=== PATIENT | male | born 1945 | race Caucasian/White ===

== ENCOUNTER 2020-03-24 12:38 | Outpatient (REF) | payer MEDICARE, SELFPAY ==
--- NOTE | 2020-03-24 12:54 | MR_ITS ---
EXAMINATION: MR KNEE WITHOUT CONTRAST, LEFT CLINICAL INFORMATION: Left knee pain. COMPARISON: Radiographs 05/04/2018 TECHNIQUE: MRI of the knee without contrast was performed using routine sequences on a high-field scanner. FINDINGS: MENISCI: Medial Meniscus: Diffuse inner margin tearing, particularly along the anterior horn and extruded meniscal body. Lateral Meniscus: Extensive complex tearing of the anterior horn which is essentially absent. This extends along the inner margin of the extruded meniscal body and inner margin/undersurface of the posterior horn. LIGAMENTS: Cruciate: Mucoid degeneration and probable high-grade chronic partial tearing of the ACL. Mild degenerative signal of the mid PCL. Collateral: Intact. EXTENSOR MECHANISM: Intact. ARTICULAR CARTILAGE/BONE: Patellofemoral Compartment: Cartilage thinning and surface irregularity with central osteophytes of the trochlea and central patella. Prominent marginal osteophytes. Medial Compartment: Extensive full-thickness cartilage loss with articular surface remodeling and prominent marginal osteophytes. Lateral Compartment: Full-thickness cartilage loss of the posterior weightbearing femoral condyle with mild concavity of the articular surface of the weightbearing femoral condyle likely representing a subchondral insufficiency fracture with underlying bone marrow edema. There is peripheral cartilage loss of the tibia, near full-thickness at the junction with the lateral tibial spine, and large marginal osteophytes. JOINT FLUID AND BURSAE: There is a large joint effusion and complex Chaudhry's cyst. Diffuse synovitis. MR/MR knee LT wo con IMPRESSION: Complex tearing of both menisci with severe medial and lateral compartment osteoarthritis, as detailed in the comments. Probable subchondral insufficiency fracture/SONK of the weightbearing lateral femoral condyle with articular surface concavity and underlying bone marrow edema. Degeneration and chronic partial tearing of the ACL. Moderate patellofemoral osteoarthritis. There is a large joint effusion and a complex Chaudhry's cyst.
== END 2020-03-24 12:39 | disposition home or self-care (01) ==
LOC: HO.MRI 12:38
PROVIDERS: PCP Internal Medicine; Visit Provider Internal Medicine
DX: M25.562 Pain in left knee (principal)
CPT/HCPCS: 73721

== ENCOUNTER 2020-04-08 13:23 | Outpatient (REF) | payer MEDICARE, SELFPAY ==
--- NOTE | 2020-04-08 13:43 | XR_ITS ---
EXAMINATION: BILATERAL KNEE X-RAY CLINICAL INFORMATION: Left knee pain COMPARISON: Previous x-rays April 2014 TECHNIQUE: Standing AP view of both knees and lateral and sunrise view of the left knee FINDINGS: Left knee: There is varus angulation. Bone alignment is normal otherwise normal. No fracture or dislocation is seen. There is arthritis at the medial femoral tibial and patellofemoral joints with joint space narrowing and osteophyte formation. There is a moderate joint effusion. The standing AP view of the right knee demonstrates varus angulation and medial femoral tibial joint space narrowing. XR/XR knee LT 2V IMPRESSION: Varus angulation and degenerative change.
--- NOTE | 2020-04-08 13:43 | XR_ITS ---
EXAMINATION: BILATERAL KNEE X-RAY CLINICAL INFORMATION: Left knee pain COMPARISON: Previous x-rays April 2014 TECHNIQUE: Standing AP view of both knees and lateral and sunrise view of the left knee FINDINGS: Left knee: There is varus angulation. Bone alignment is normal otherwise normal. No fracture or dislocation is seen. There is arthritis at the medial femoral tibial and patellofemoral joints with joint space narrowing and osteophyte formation. There is a moderate joint effusion. The standing AP view of the right knee demonstrates varus angulation and medial femoral tibial joint space narrowing. XR/XR knee standing BI IMPRESSION: Varus angulation and degenerative change.
== END 2020-04-08 13:24 | disposition home or self-care (01) ==
LOC: HO.HOSX 13:23
PROVIDERS: Visit Provider Orthopaedic Surgery
DX: M25.562 Pain in left knee (principal); M25.561 Pain in right knee; M17.0 Bilateral primary osteoarthritis of knee
CPT/HCPCS: 73560; 73565; 99202

== ENCOUNTER 2020-06-25 12:52 | Inpatient (IN) | payer MEDICARE, SELFPAY ==
--- NOTE | ~2020-06-25 | CT_ITS ---
EXAMINATION: CT ABDOMEN AND PELVIS WITHOUT CONTRAST CLINICAL INFORMATION: Gross hematochezia COMPARISON: None TECHNIQUE: Multidetector volumetric imaging was performed from the superior aspect of the liver through the pubic symphysis. Sagittal and coronal reformatted images were obtained on the technologist's workstation. This CT examination was performed using dose optimization techniques as appropriate, variously including the following: *Automated exposure control *Adjustment of mA and/or kV according to patient size (this includes techniques or standardized protocols for targeted exams where dose is matched to indication/reason for exam; i.e. extremities or head) *Use of iterative reconstruction technique DLP: 520 mGy-cm FINDINGS: LUNG BASES: Some [id number]-type changes are present in the lingula indicative of airway disease. No suspicious lung mass infiltrate or pleural effusions are seen. LIVER, GALLBLADDER, AND BILIARY TREE: The liver is normal in size, shape, and attenuation. No focal hepatic lesion or biliary ductal dilatation is present. The gallbladder contains layering small gallstones but is otherwise unremarkable with no evidence of wall thickening or obvious pericholecystic inflammatory changes. PANCREAS: Unremarkable. SPLEEN: Unremarkable. ADRENAL GLANDS: Unremarkable. KIDNEYS AND URETERS: The kidneys are normal in size, shape, and attenuation. No hydronephrosis, hydroureter, or calculi seen. No perinephric stranding. BLADDER: Unremarkable. GASTROINTESTINAL TRACT: A hiatal hernia is present. Extensive diverticular changes are present in the left colon most prominent in the rectosigmoid. Other scattered diverticula are present throughout the remainder of the bowel. There is no evidence of diverticulitis. No colonic mass lesions are seen. The small and large bowel are otherwise unremarkable. The appendix is not seen. ABDOMINAL WALL: No significant hernia is appreciated. A tiny left inguinal hernia is seen containing only fat. LYMPH NODES: No retroperitoneal lymphadenopathy. VASCULAR: Unremarkable. PELVIC VISCERA: A 2.6 x 2.3 x 2.8 cm cyst is noted just above the right seminal vesicle. This may have a septation in it. No free pelvic fluid is seen. The prostate and seminal vesicles appear normal. OSSEOUS STRUCTURES: Degenerative changes present in the spine most marked at L4-L5. No bony destructive lesion is seen. CT/CT abdomen pelvis wo con IMPRESSION: A cause for the patient's hematochezia has not been found. Incidental note made of: 1. Cholelithiasis without cholecystitis. 2. Hiatal hernia. 3. Extensive diverticular disease without diverticulitis. 4. Pelvic cyst just above the right seminal vesicle, water density. 5. Degenerative changes in the spine.
--- NOTE | 2020-06-25 14:05 | ED.GENADULT ---
HPI - General Adult General Stated complaint: rectal bleeding Time Seen by Provider: 06/25/20 14:00 Related Data Home Medications Medication Instructions Recorded Confirmed simvastatin PO 04/07/20 Allergies Allergy/AdvReac Type Severity Reaction Status Date / Time No Known Allergies Allergy Verified 04/08/20 13:28 [facility] Past Medical History Medical History (Updated 04/08/20 @ 14:38 by Leora Martinez MD) Osteoarthritis of both knees Surgical History (Updated 04/07/20 @ 16:10 by Ellen Rankin CMA) History of arthroplasty of left knee Previous back surgery Social History Social History (Updated 04/08/20 @ 13:29 by Ellen Rankin CMA) Current occupational status: retired Current occupation: Right Handed Course Course Course Narrative: 1405-This is a rapid medical exam. 74 yo male OA, HLD, HTN here with rectal bleeding with diarrhea since last night. No abdominal pain. Started 7pm yesterday till 5am. BRB with clots, episodes every hours throughout the night. No episode of bleeding since 5am. No fevers, chills. Takes naproxen daily for OA. Last colonoscopy 3 yrs ago. No dizziness, weakness, SOB. Will check labs including type and screen. Deferred additional HPI, ROS and PE to primary provider.
[2020-06-25 14:06] VITALS: BP 142/79; PULSE 100; RESP 18; TEMP 36.6; O2SAT 97; BMI 27.4
[2020-06-25 14:23] LABS: MANUAL DIFF FLAG NO
[2020-06-25 14:25] LABS: Basophils Percent Auto 0.4 % (0-2); Eosinophils Absolute Auto 0.5 X10*3/uL (0.0-0.4); Eosinophils Percent Auto 4.4 % (0-4); Hematocrit 35.3 % (42-52); Hemoglobin 11.8 g/dl (14.0-18.0); Imm Gran Abs Auto 0.03 X10*3/uL (0.00-0.03); Imm Gran Pct Auto 0.3 % (0.0-0.4); Lymphocytes Percent Auto 19.2 % (20-40); Mean Corpuscular HGB Conc 33.4 g/dl (31.0-36.0); Mean Corpuscular Hemoglobin 29.2 pg (27.0-33.0); Mean Corpuscular Volume 87.4 fL (80-98); Monocytes Absolute Auto 0.8 X10*3/uL (0.1-1.2); Monocytes Percent Auto 7.6 % (2-11); Neutrophils Percent Auto 68.1 % (45-73); Platelet Count 234 X10*3/uL (160-400); Red Blood Count 4.04 X10*6/uL (4.60-5.80); Red Cell Distribution Width 13.2 % (11.0-16.0); White Blood Count 10.3 X10*3/uL (4.8-10.8)
[2020-06-25 14:32] LABS: INTERNATIONAL NORM RATIO 1.1 (0.9-1.1); Prothrombin Time 13.5 SEC (10.8-13.0)
[2020-06-25 14:48] LABS: Lactic Acid 0.6 mmol/L (0.5-2.0)
[2020-06-25 14:54] LABS: Alanine Aminotransferase 24 U/L (0-40); Albumin Level 4.3 g/dL (3.5-5.0); Alkaline Phosphatase 59 U/L (39-117); Anion Gap 12 (12-20); Aspartate Amino Transferase 36 U/L (5-37); Bilirubin Direct 0.3 mg/dL (0.0-0.5); Bilirubin Total 0.7 mg/dL (0.0-1.0); Blood Urea Nitrogen 31 mg/dL (9-16); Calcium 8.4 mg/dL (8.4-10.2); Carbon Dioxide 25 mmol/L (22-29); Chloride 106 mmol/L (96-108); Creatinine Clr Calc Pharmacy 60.4; Estimated Glomerular Filt Rate > 60; Glucose Random 88 mg/dL (60-115); Potassium 4.2 mmol/L (3.3-5.1); Sodium 139 mmol/L (135-145); Total Protein 6.7 g/dL (6.5-8.0)
[2020-06-25 20:18] LABS: Glucose Urine UA NEG (NEG); Leukocyte Esterase Urine NEG (NEG); Nitrite Urine NEG (NEG); PH 5.5 (5.0-8.0); Specific Gravity - Urine >= 1.030 (1.005-1.025); Urine Blood NEG (NEG); Urine Ketones >=80 MG/DL (NEG); Urine Protein NEG (NEG-TRACE)
[2020-06-25 20:21] LABS: Appearance Urine CLEAR; Color Urine YELLOW
--- NOTE | 2020-06-25 20:57 | ED_ITS ---
HPI - GI Bleed General Chief complaint: GI Bleed Stated complaint: rectal bleeding Time Seen by Provider: 06/25/20 14:00 Source: patient Mode of arrival: ambulatory Limitations: no limitations History of Present Illness HPI Narrative: Patient on chronic NSAID use for arthritis no abdominal pain last colonoscopy 4 years ago negative comes here for bright red rectal bleed mixed with dark stool since last night without any significant abdominal pain patient had about 15-20 bowel movements last night felt little weak seen his primary care doctor was tachycardic in the office patient denies any peptic ulcer disease no hemorrhoids never had similar bleeding the past patient did not have any bowel movement since 05:00 today complaint: gross hematochezia Onset (ago): day(s) (1) Pain Consistency: now resolved Severity: moderate Relieving factors: none Exacerbating factors: none Related Data Home Medications Medication Instructions Recorded Confirmed simvastatin 20 mg PO DAILY 04/07/20 06/25/20 amlodipine 1 tab PO DAILY 06/25/20 06/25/20 naproxen 1 tab PO BID 06/25/20 06/25/20 Allergies Allergy/AdvReac Type Severity Reaction Status Date / Time No Known Allergies Allergy Verified 06/25/20 14:11 Review of Systems Review of Systems: Constitutional : No Weight loss, No Fever, No Chills ENT/Mouth : No sore throat, No Rhinorrhea Eyes: No Eye Pain, No Swelling Cardiovascular : No Chest Pain, no palpitations Respiratory : No Cough, No Sputum, no shortness of breath Gastrointestinal : no Nausea, No Vomiting, No Diarrhea, No abdominal Pain, + black stools Genitourinary : No Dysuria, No Urinary Frequency Musculoskeletal : No joint pain, No Myalgias, No Joint Swelling Skin : No Skin Lesions, No rash Neuro : No Weakness, No Numbness, No Dizziness, No Headache Psych : No Anxiety/Panic, No Depression Heme/Lymph: No Bruising, No Lymphadenopathy Endocrine : No Polyuria, No Polydipsia All other systems reviewed and are negative [facility] Past Medical History Medical History Osteoarthritis of both knees Surgical History History of arthroplasty of left knee Previous back surgery Social History Social History Alcohol intake: former Smoking Status: Never smoker Use of substances other than those prescribed or required for medical reasons: No Advance Directives: No Advance Directives Information Provided: No Current occupational status: retired Current occupation: Right Handed Physical Exam Vital Signs: Vital Signs: Last Vital Signs Temp 98.7 F 06/25/20 23:39 Pulse 86 06/25/20 23:39 Resp 16 06/25/20 23:39 BP 100/55 L 06/25/20 23:39 Pulse Ox 98 06/25/20 23:39 Body Mass Index 27.4 Const: General: healthy appearing, comfortable, no acute distress and well developed Orientation/consciousness: patient oriented x3 HENMT: Head: Yes normal to inspection Ears: hearing grossly normal bilaterally Face and sinus: Yes normal facial exam Mouth: Normal oral and palatal mucosa present Eyes: General: appearance normal, both eyes and all related structures Conjunctivae: conjunctivae normal Sclerae: sclerae normal Pupils: Equal, round and reactive pupils present Neck: Neck: Yes normal visual inspection Chest: Chest palpation & inspection: normal inspection of the chest Resp: Effort & Inspection: normal respiratory effort Auscultation: clear to auscultation bilaterally, no crackles and no rales Cardio: Jugular venous distension: no JVD Rate: regular rate Rhythm: regular rhythm Heart sounds: S1 normal heart sound present and S2 normal heart sound present Peripheral pulses: Peripheral pulses 2+ throughout GI: Inspection: Yes normal to inspection Palpation (GI): Soft to palpation and nontender Rectal Exam - Male: Yes visual inspection normal, Yes normal sphincter tone and Yes heme positive stool (Melena) : General: Yes no CVA tenderness Back/Spine/Pelvis: Back: no CVA tenderness Thoracic/Lumbar Spine: thoracic and lumbar spine normal to inspection Skin: General skin exam: no rashes or lesions noted Neuro: General: patient oriented x3 and no focal motor deficits Cranial nerves: Yes Equal, round and reactive pupils present Extrem: General: Yes normal to inspection, Yes no calf tenderness and No pedal edema MDM - GI Bleed MDM Narrative Medical decision making narrative: Patient with melena likely from chronic use of NSAID and gastritis although patient does not have any pain in abdomen CT scan of abdomen is negative patient H&H is stable at this time will admit him for serial check on h/h and plan for endoscopy in the morning Differential Diagnosis Differential diagnosis: Likely Upper gastrointestinal hemorrhage and hematochezia Lab Data Attestation: I reviewed the patient's lab results. Result diagrams: 06/25/20 14:17 06/25/20 14:17 Labs: Lab Results 06/25/20 06/25/20 06/25/20 Range/Units 14:17 14:17 14:17 WBC 10.3 (4.8-10.8) X10*3/uL RBC 4.04 L (4.60-5.80) X10*6/uL Hgb 11.8 L (14.0-18.0) g/dl Hct 35.3 L (42-52) % MCV 87.4 (80-98) fL MCH 29.2 (27.0-33.0) pg MCHC 33.4 (31.0-36.0) g/dl RDW 13.2 (11.0-16.0) % Plt Count 234 (160-400) X10*3/uL MPV 11.0 (9.4-12.4) fL Immature Gran % (Auto) 0.3 (0.0-0.4) % Neut % (Auto) 68.1 (45-73) % Lymph % (Auto) 19.2 L (20-40) % [place] % (Auto) 7.6 (2-11) % Eos % (Auto) 4.4 H (0-4) % Baso % (Auto) 0.4 (0-2) % Lymph # (Auto) 2.0 (1.2-4.9) X10*3/uL [place] # (Auto) 0.8 (0.1-1.2) X10*3/uL Eos # (Auto) 0.5 H (0.0-0.4) X10*3/uL Baso # (Auto) 0.0 (0.0-0.2) X10*3/uL Abs Immat Gran (auto) 0.03 (0.00-0.03) X10*3/uL Absolute Neuts (auto) 7.0 (2.0-8.3) X10*3/uL Absolute Nucleated RBC 0.000 (0.0-0.012) X10*3/uL Nucleated RBC % (auto) 0.0 (0.0-0.2) /100WBC PT 13.5 H (10.8-13.0) SEC INR 1.1 (0.9-1.1) Sodium 139 (135-145) mmol/L Potassium 4.2 (3.3-5.1) mmol/L Chloride 106 (96-108) mmol/L Carbon Dioxide 25 (22-29) mmol/L Anion Gap 12 (12-20) BUN 31 H (9-16) mg/dL Creatinine 1.08 (0.5-1.4) mg/dL Estim Creat Clear Calc 60.4 Estimated GFR > 60 Random Glucose 88 (60-115) mg/dL Lactic Acid (0.5-2.0) mmol/L Calcium 8.4 (8.4-10.2) mg/dL Total Bilirubin 0.7 (0.0-1.0) mg/dL Direct Bilirubin 0.3 (0.0-0.5) mg/dL AST 36 (5-37) U/L ALT 24 (0-40) U/L Alkaline Phosphatase 59 (39-117) U/L Total Protein 6.7 (6.5-8.0) g/dL Albumin 4.3 (3.5-5.0) g/dL Urine Color Urine Appearance Urine pH (5.0-8.0) Ur Specific [place] (1.005-1.025) Urine Protein (NEG-TRACE) MG/DL Urine Glucose (UA) (NEG) MG/DL Urine Ketones (NEG) MG/DL Urine Blood (NEG) Urine Nitrite (NEG) Ur Leukocyte Esterase (NEG) Stool Occult Blood (NEG) COVID-19 ([facility]) (Negative) COVID-19 Clin Com Blood Type Antibody Screen 06/25/20 06/25/20 06/25/20 Range/Units 14:17 14:17 20:10 WBC (4.8-10.8) X10*3/uL RBC (4.60-5.80) X10*6/uL Hgb (14.0-18.0) g/dl Hct (42-52) % MCV (80-98) fL MCH (27.0-33.0) pg MCHC (31.0-36.0) g/dl RDW (11.0-16.0) % Plt Count (160-400) X10*3/uL MPV (9.4-12.4) fL Immature Gran % (Auto) (0.0-0.4) % Neut % (Auto) (45-73) % Lymph % (Auto) (20-40) % [place] % (Auto) (2-11) % Eos % (Auto) (0-4) % Baso % (Auto) (0-2) % Lymph # (Auto) (1.2-4.9) X10*3/uL [place] # (Auto) (0.1-1.2) X10*3/uL Eos # (Auto) (0.0-0.4) X10*3/uL Baso # (Auto) (0.0-0.2) X10*3/uL Abs Immat Gran (auto) (0.00-0.03) X10*3/uL Absolute Neuts (auto) (2.0-8.3) X10*3/uL Absolute Nucleated RBC (0.0-0.012) X10*3/uL Nucleated RBC % (auto) (0.0-0.2) /100WBC PT (10.8-13.0) SEC INR (0.9-1.1) Sodium (135-145) mmol/L Potassium (3.3-5.1) mmol/L Chloride (96-108) mmol/L Carbon Dioxide (22-29) mmol/L Anion Gap (12-20) BUN (9-16) mg/dL Creatinine (0.5-1.4) mg/dL Estim Creat Clear Calc Estimated GFR Random Glucose (60-115) mg/dL Lactic Acid 0.6 (0.5-2.0) mmol/L Calcium (8.4-10.2) mg/dL Total Bilirubin (0.0-1.0) mg/dL Direct Bilirubin (0.0-0.5) mg/dL AST (5-37) U/L ALT (0-40) U/L Alkaline Phosphatase (39-117) U/L Total Protein (6.5-8.0) g/dL Albumin (3.5-5.0) g/dL Urine Color YELLOW Urine Appearance CLEAR Urine pH 5.5 (5.0-8.0) Ur Specific [place] >= 1.030 H (1.005-1.025) Urine Protein NEG (NEG-TRACE) MG/DL Urine Glucose (UA) NEG (NEG) MG/DL Urine Ketones >=80 (NEG) MG/DL Urine Blood NEG (NEG) Urine Nitrite NEG (NEG) Ur Leukocyte Esterase NEG (NEG) Stool Occult Blood (NEG) COVID-19 ([facility]) (Negative) COVID-19 Clin Com Blood Type O Positive Antibody Screen NEGATIVE 06/25/20 06/25/20 Range/Units 21:31 21:33 WBC (4.8-10.8) X10*3/uL RBC (4.60-5.80) X10*6/uL Hgb (14.0-18.0) g/dl Hct (42-52) % MCV (80-98) fL MCH (27.0-33.0) pg MCHC (31.0-36.0) g/dl RDW (11.0-16.0) % Plt Count (160-400) X10*3/uL MPV (9.4-12.4) fL Immature Gran % (Auto) (0.0-0.4) % Neut % (Auto) (45-73) % Lymph % (Auto) (20-40) % [place] % (Auto) (2-11) % Eos % (Auto) (0-4) % Baso % (Auto) (0-2) % Lymph # (Auto) (1.2-4.9) X10*3/uL [place] # (Auto) (0.1-1.2) X10*3/uL Eos # (Auto) (0.0-0.4) X10*3/uL Baso # (Auto) (0.0-0.2) X10*3/uL Abs Immat Gran (auto) (0.00-0.03) X10*3/uL Absolute Neuts (auto) (2.0-8.3) X10*3/uL Absolute Nucleated RBC (0.0-0.012) X10*3/uL Nucleated RBC % (auto) (0.0-0.2) /100WBC PT (10.8-13.0) SEC INR (0.9-1.1) Sodium (135-145) mmol/L Potassium (3.3-5.1) mmol/L Chloride (96-108) mmol/L Carbon Dioxide (22-29) mmol/L Anion Gap (12-20) BUN (9-16) mg/dL Creatinine (0.5-1.4) mg/dL Estim Creat Clear Calc Estimated GFR Random Glucose (60-115) mg/dL Lactic Acid (0.5-2.0) mmol/L Calcium (8.4-10.2) mg/dL Total Bilirubin (0.0-1.0) mg/dL Direct Bilirubin (0.0-0.5) mg/dL AST (5-37) U/L ALT (0-40) U/L Alkaline Phosphatase (39-117) U/L Total Protein (6.5-8.0) g/dL Albumin (3.5-5.0) g/dL Urine Color Urine Appearance Urine pH (5.0-8.0) Ur Specific [place] (1.005-1.025) Urine Protein (NEG-TRACE) MG/DL Urine Glucose (UA) (NEG) MG/DL Urine Ketones (NEG) MG/DL Urine Blood (NEG) Urine Nitrite (NEG) Ur Leukocyte Esterase (NEG) Stool Occult Blood POS (NEG) COVID-19 ([facility]) Negative (Negative) COVID-19 Clin Com See Note Blood Type Antibody Screen Imaging Data CT scan - abdomen: Radiologist's impression: XAMINATION: CT ABDOMEN AND PELVIS WITHOUT CONTRAST CLINICAL INFORMATION: Gross hematochezia COMPARISON: None TECHNIQUE: Multidetector volumetric imaging was performed from the superior aspect of the liver through the pubic symphysis. Sagittal and coronal reformatted images were obtained on the technologist's workstation. This CT examination was performed using dose optimization techniques as appropriate, variously including the following: *Automated exposure control *Adjustment of mA and/or kV according to patient size (this includes techniques or standardized protocols for targeted exams where dose is matched to indication/reason for exam; i.e. extremities or head) *Use of iterative reconstruction technique DLP: 520 mGy-cm FINDINGS: LUNG BASES: Some [id number]-type changes are present in the lingula indicative of airway disease. No suspicious lung mass infiltrate or pleural effusions are seen. LIVER, GALLBLADDER, AND BILIARY TREE: The liver is normal in size, shape, and attenuation. No focal hepatic lesion or biliary ductal dilatation is present. The gallbladder contains layering small gallstones but is otherwise unremarkable with no evidence of wall thickening or obvious pericholecystic inflammatory changes. PANCREAS: Unremarkable. SPLEEN: Unremarkable. ADRENAL GLANDS: Unremarkable. KIDNEYS AND URETERS: The kidneys are normal in size, shape, and attenuation. No hydronephrosis, hydroureter, or calculi seen. No perinephric stranding. BLADDER: Unremarkable. GASTROINTESTINAL TRACT: A hiatal hernia is present. Extensive diverticular changes are present in the left colon most prominent in the rectosigmoid. Other scattered diverticula are present throughout the remainder of the bowel. There is no evidence of diverticulitis. No colonic mass lesions are seen. The small and large bowel are otherwise unremarkable. The appendix is not seen. ABDOMINAL WALL: No significant hernia is appreciated. A tiny left inguinal hernia is seen containing only fat. LYMPH NODES: No retroperitoneal lymphadenopathy. VASCULAR: Unremarkable. PELVIC VISCERA: A 2.6 x 2.3 x 2.8 cm cyst is noted just above the right seminal vesicle. This may have a septation in it. No free pelvic fluid is seen. The prostate and seminal vesicles appear normal. OSSEOUS STRUCTURES: Degenerative changes present in the spine most marked at L4-L5. No bony destructive lesion is seen. CT/CT abdomen pelvis wo con IMPRESSION: A cause for the patient's hematochezia has not been found. Incidental note made of: 1. Cholelithiasis without cholecystitis. 2. Hiatal hernia. 3. Extensive diverticular disease without diverticulitis. 4. Pelvic cyst just above the right seminal vesicle, water density. 5. Degenerative changes in the spine.
[2020-06-25 21:23] VITALS: BP 154/84; PULSE 100; RESP 18; TEMP 36.6; O2SAT 98
[2020-06-25] MEDS: Pantoprazole Sodium 40 MG/10 ML VIAL 80 MG IVPUSH (21:27)
[2020-06-25 21:42] LABS: OBS Int Ctl Valid YES; OBS1 POS (NEG)
[2020-06-25 21:55] LABS: COVID-19 Test Negative (Negative); IDNOW Serial# 9DD0AD1C
--- NOTE | 2020-06-25 22:23 | PM.IMHP ---
History of Present Illness Date of Service: 06/25/20 Chief Complaint: BRBPR 74-year-old male with a past medical history of hypertension, hyperlipidemia, knee arthritis on naproxen presented to the hospital with a chief complaint of multiple episodes of bright red blood per rectum. Denies any fever chills cough. Denies any abdominal pain. Denies any recent travel sick contacts. Denies any prior episodes of GI bleed. Mention that he went to his PCP office and noted to be tachycardic and subsequently sent to the ER for further evaluation. Denies any lightheadedness dizziness. Review of all other systems is negative except mentioned above ER course: Per ER team patient's abdominal exam was benign, CT scan of the abdomen showed cholelithiasis without cholecystitis, hiatal hernia, extensive diverticular disease without diverticulitis pelvic cyst just above the seminal vesicle, water density, degenerative changes in the spine. Hemoglobin was 11.8. Given pantoprazole. Admitted to the hospital for further management [facility] Medical History Osteoarthritis of both knees Surgical History History of arthroplasty of left knee Previous back surgery Social History Alcohol intake: former Smoking Status: Never smoker Use of substances other than those prescribed or required for medical reasons: No Advance Directives: No Advance Directives Information Provided: No Current occupational status: retired Current occupation: Right Handed Meds Allergies Allergy/AdvReac Type Severity Reaction Status Date / Time No Known Allergies Allergy Verified 06/25/20 14:11 Home Medications Medication Instructions Recorded Confirmed Type simvastatin 20 mg PO DAILY 04/07/20 06/25/20 History amlodipine 1 tab PO DAILY 06/25/20 06/25/20 History naproxen 1 tab PO BID 06/25/20 06/25/20 History Physical Exam Vital Signs and Narrative: Vital Signs: Last Vital Signs Temp 97.8 F 06/25/20 21:23 Pulse 100 06/25/20 21:23 Resp 18 06/25/20 21:23 BP 154/84 H 06/25/20 21:23 Pulse Ox 98 06/25/20 21:23 Body Mass Index 27.4 Gen: Appears be in no acute distress HEENT: NCAT, Moist mucosa. Pulmonary: Vesicular breath sounds, fair air entry CVS: Normal S1-S2 Abdomen: BS+, Soft, Nontender Extremities: Warm well perfused Neuro: Alert and awake. Results Labs CBC and Chem 7: 06/25/20 14:17 06/25/20 14:17 Labs: Laboratory Results - last 24 hr 06/25/20 06/25/20 06/25/20 14:17 14:17 14:17 MCV 87.4 MCH 29.2 MCHC 33.4 RDW 13.2 Plt Count 234 MPV 11.0 Immature Gran % (Auto) 0.3 Neut % (Auto) 68.1 Lymph % (Auto) 19.2 L [place] % (Auto) 7.6 Eos % (Auto) 4.4 H Baso % (Auto) 0.4 Lymph # (Auto) 2.0 [place] # (Auto) 0.8 Eos # (Auto) 0.5 H Baso # (Auto) 0.0 Abs Immat Gran (auto) 0.03 Absolute Neuts (auto) 7.0 Absolute Nucleated RBC 0.000 Nucleated RBC % (auto) 0.0 PT 13.5 H INR 1.1 Anion Gap 12 Estim Creat Clear Calc 60.4 Estimated GFR > 60 Random Glucose 88 Lactic Acid Calcium 8.4 Total Bilirubin 0.7 Direct Bilirubin 0.3 AST 36 ALT 24 Alkaline Phosphatase 59 Total Protein 6.7 Albumin 4.3 Urine Color Urine Appearance Urine pH Ur Specific [place] Urine Protein Urine Glucose (UA) Urine Ketones Urine Blood Urine Nitrite Ur Leukocyte Esterase Stool Occult Blood COVID-19 ([facility]) COVID-19 Clin Com Blood Type Antibody Screen 06/25/20 06/25/20 06/25/20 14:17 14:17 20:10 MCV MCH MCHC RDW Plt Count MPV Immature Gran % (Auto) Neut % (Auto) Lymph % (Auto) [place] % (Auto) Eos % (Auto) Baso % (Auto) Lymph # (Auto) [place] # (Auto) Eos # (Auto) Baso # (Auto) Abs Immat Gran (auto) Absolute Neuts (auto) Absolute Nucleated RBC Nucleated RBC % (auto) PT INR Anion Gap Estim Creat Clear Calc Estimated GFR Random Glucose Lactic Acid 0.6 Calcium Total Bilirubin Direct Bilirubin AST ALT Alkaline Phosphatase Total Protein Albumin Urine Color YELLOW Urine Appearance CLEAR Urine pH 5.5 Ur Specific [place] >= 1.030 H Urine Protein NEG Urine Glucose (UA) NEG Urine Ketones >=80 Urine Blood NEG Urine Nitrite NEG Ur Leukocyte Esterase NEG Stool Occult Blood COVID-19 ([facility]) COVID-19 Clin Com Blood Type O Positive Antibody Screen NEGATIVE 06/25/20 06/25/20 21:31 21:33 MCV MCH MCHC RDW Plt Count MPV Immature Gran % (Auto) Neut % (Auto) Lymph % (Auto) [place] % (Auto) Eos % (Auto) Baso % (Auto) Lymph # (Auto) [place] # (Auto) Eos # (Auto) Baso # (Auto) Abs Immat Gran (auto) Absolute Neuts (auto) Absolute Nucleated RBC Nucleated RBC % (auto) PT INR Anion Gap Estim Creat Clear Calc Estimated GFR Random Glucose Lactic Acid Calcium Total Bilirubin Direct Bilirubin AST ALT Alkaline Phosphatase Total Protein Albumin Urine Color Urine Appearance Urine pH Ur Specific [place] Urine Protein Urine Glucose (UA) Urine Ketones Urine Blood Urine Nitrite Ur Leukocyte Esterase Stool Occult Blood POS COVID-19 ([facility]) Negative COVID-19 Clin Com See Note Blood Type Antibody Screen Assessment and Plan (1) GI bleed: Status: Acute 74-year-old male with a past medical history of hypertension, hyperlipidemia, knee arthritis on naproxen presented to the hospital with a chief complaint of bright red blood per rectum-multiple episodes. Currently hemoglobin is 11.8. Vital stable. Admitted to the hospital for further management. GI bleed: Hemoglobin at 11.8. Monitor serial H&H. Vitals currently stable. Abdominal exam benign. CT scan showed extensive diverticulosis. IV ppi bid NPO IV fluids GI consult transfuse prn if Hgb<7.0 Hypertension/hyperlipidemia: Will hold antihypertensives. Will hold home medications for now given NPO status. Cholelithiasis: Outpatient general surgery follow-up Pelvic cyst: Outpatient Urology follow-up recommended. DVT prophylaxis: SCD boots Full code
--- NOTE | 2020-06-25 23:31 | PC.NURSE ---
delay for d5 1/2ns due to stocking issues. 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
[2020-06-25 23:39] VITALS: BP 100/55; PULSE 86; RESP 16; TEMP 37.1; O2SAT 98
[2020-06-25 23:45] LABS: Iron 83 mcg/dL (45-160); Percent Iron Saturation 29 % (15-50); Total Iron Binding Capacity 290 mcg/dL (228-428); Unsaturated Iron Binding 207 ug/dL
[2020-06-25] MEDS: Dextrose 5 % and 0.45 % NaCl 1,000 ML 100 ML IVCONT (23:57)
[2020-06-26 00:05] LABS: Ferritin 46 ng/mL (20-250)
[2020-06-26] MEDS: 0.9 % Sodium Chloride 1,000 ML 100 ML IVCONT (01:02)
[2020-06-26 01:17] LABS: Basophils Absolute Auto 0.1 X10*3/uL (0.0-0.2); Basophils Percent Auto 0.6 % (0-2); Eosinophils Absolute Auto 0.6 X10*3/uL (0.0-0.4); Eosinophils Percent Auto 7.2 % (0-4); Hematocrit 30.8 % (42-52); Hemoglobin 10.4 g/dl (14.0-18.0); Imm Gran Abs Auto 0.02 X10*3/uL (0.00-0.03); Imm Gran Pct Auto 0.2 % (0.0-0.4); Lymphocytes Percent Auto 22.4 % (20-40); MANUAL DIFF FLAG NO; Mean Corpuscular HGB Conc 33.8 g/dl (31.0-36.0); Mean Corpuscular Hemoglobin 29.7 pg (27.0-33.0); Monocytes Absolute Auto 0.7 X10*3/uL (0.1-1.2); Monocytes Percent Auto 8.3 % (2-11); Neutrophils Absolute Auto 5.4 X10*3/uL (2.0-8.3); Neutrophils Percent Auto 61.3 % (45-73); Platelet Count 176 X10*3/uL (160-400); Red Cell Distribution Width 13.3 % (11.0-16.0); White Blood Count 8.7 X10*3/uL (4.8-10.8)
[2020-06-26] MEDS: Pantoprazole Sodium 40 MG/10 ML VIAL IVPUSH (05:49)
[2020-06-26 06:01] LABS: MANUAL DIFF FLAG NO
[2020-06-26 06:02] LABS: Basophils Absolute Auto 0.1 X10*3/uL (0.0-0.2); Basophils Percent Auto 0.6 % (0-2); Eosinophils Absolute Auto 0.8 X10*3/uL (0.0-0.4); Eosinophils Percent Auto 9.7 % (0-4); Hematocrit 30.5 % (42-52); Hemoglobin 10.4 g/dl (14.0-18.0); Imm Gran Abs Auto 0.01 X10*3/uL (0.00-0.03); Imm Gran Pct Auto 0.1 % (0.0-0.4); Lymphocytes Absolute Auto 2.5 X10*3/uL (1.2-4.9); Lymphocytes Percent Auto 30.3 % (20-40); Mean Corpuscular HGB Conc 34.1 g/dl (31.0-36.0); Mean Corpuscular Volume 87.9 fL (80-98); Mean Platelet Volume 10.8 fL (9.4-12.4); Monocytes Absolute Auto 0.8 X10*3/uL (0.1-1.2); Monocytes Percent Auto 9.4 % (2-11); Neutrophils Absolute Auto 4.2 X10*3/uL (2.0-8.3); Neutrophils Percent Auto 49.9 % (45-73); Platelet Count 176 X10*3/uL (160-400); Red Blood Count 3.47 X10*6/uL (4.60-5.80); White Blood Count 8.4 X10*3/uL (4.8-10.8)
[2020-06-26 06:26] LABS: Anion Gap 13 (12-20); Blood Urea Nitrogen 23 mg/dL (9-16); Calcium 8.2 mg/dL (8.4-10.2); Carbon Dioxide 24 mmol/L (22-29); Chloride 110 mmol/L (96-108); Creatinine Clr Calc Pharmacy 76.8; Estimated Glomerular Filt Rate > 60; Glucose Random 79 mg/dL (60-115); Potassium 4.1 mmol/L (3.3-5.1); Sodium 143 mmol/L (135-145)
[2020-06-26 07:46] VITALS: BP 116/62; PULSE 91; RESP 16; TEMP 36.7; O2SAT 98
--- NOTE | 2020-06-26 07:48 | PC.NURSE ---
pt is a/o x 3 no sob/mary noted skin pink warm dry speaks in full sentences. aware of plan of care for gi consult.. pt is npo at this time.
[2020-06-26] MEDS: 0.9 % Sodium Chloride Flush 3 ML SYRINGE IVFLUSH (08:05)
[2020-06-26 10:02] VITALS: BP 119/71; PULSE 90; RESP 20; O2SAT 98
[2020-06-26 11:51] VITALS: BP 159/85; PULSE 100; RESP 16; TEMP 36.9; O2SAT 97
--- NOTE | 2020-06-26 14:13 | P.DS_ITS ---
DS: Providers Provider Date of Service: 06/26/20 Date of admission: 06/25/20 22:19 Primary care physician: Henry Young MD Consults: 06/25/20 22:21 Consult to Gastroenterology Routine Consulting Provider: Edvin Bruce Reason for consultation: GI bleed Has provider been notified: No DS: Diagnosis Discharge Diagnosis (1) GI bleed: Status: Acute DS: Medications Discharge Medications Home Medications: Home Medications Medication Instructions Recorded Confirmed amlodipine 1 tab PO DAILY 06/25/20 06/25/20 simvastatin 1 tab PO BEDTIME 06/26/20 06/26/20 Previous Rx's Medication Instructions Recorded omeprazole 20 mg PO DAILY #30 cap 06/26/20 DS: Summary Hospital Course Hospital Course: History of presenting illness Chief Complaint: BRBPR 74-year-old male with a past medical history of hypertension, hyperlipidemia, knee arthritis on naproxen presented to the hospital with a chief complaint of multiple episodes of bright red blood per rectum. Denies any fever chills cough. Denies any abdominal pain. Denies any recent travel sick contacts. Denies any prior episodes of GI bleed. Mention that he went to his PCP office and noted to be tachycardic and subsequently sent to the ER for further evaluation. Denies any lightheadedness dizziness. Review of all other systems is negative except mentioned above ER course: Per ER team patient's abdominal exam was benign, CT scan of the abdomen showed cholelithiasis without cholecystitis, hiatal hernia, extensive diverticular disease without diverticulitis pelvic cyst just above the seminal vesicle, water density, degenerative changes in the spine. Hemoglobin was 11.8. Given pantoprazole. Admitted to the hospital for further management Hospital course 74-year-old gentleman with past medical history of hypertension, hyperlipidemia knee arthritis on Naprosyn presented to [facility] with 6-7 episodes of bright red blood per rectum over the course of less than 24 hours, subsequently patient went to see his primary care physician and was noted to have tachycardia and was referred to the emergency, a CT abdomen showed cholelithiasis, and extensive diverticular disease, patient hematocrit was 35.3 patient was treated with IV fluids, IV proton was made made NPO and was subsequently admitted, since his stay in the hospital patient did not have any recurrent episode of bright red blood per rectum he denies any abdominal pain his hematocrit dropped down to 30 patient denies any lightheadedness dizziness chest pain palpitation wishes to be discharged home patient had a colonoscopy done in 2016 that showed 2 polyps and diverticular disease likely patient had self-limiting diverticular bleed, case discussed with Dr. More since patient is hemodynamically stable he will be discharged home and has been recommended to call Dr. More office to make an appointment next week and to a colonoscopy scheduled in next 1-2 weeks patient has been instructed to return to check with any recurrent episodes of bright red blood per rectum,lightheadedness or dizziness. Patient has been recommended to avoid aspirin and NSAIDs. Discharge diagnosis Lower GI bleed likely diverticular bleed Hypertension Hyperlipidemia Osteoarthritis Time Spent with Patient Time attestation: Total time spent providing and/or coordinating discharge services: Discharge coordination time: Greater than 30 minutes Physical Exam Vital Signs: Vital Signs: Last Vital Signs Temp 98.4 F 06/26/20 11:51 Pulse 100 06/26/20 11:51 Resp 16 06/26/20 11:51 BP 159/85 H 06/26/20 11:51 Pulse Ox 97 06/26/20 11:51 Body Mass Index 27.4 Gen: no acute distress Neck is supple no JVD Pulmonary: No respiratory distress clear to auscultation CVS: Normal S1-S2 Abdomen: BS+, Soft, Nontender Extremities: No edema Neuro: Alert and awake, steady gait. DS: Data Data Completed and Pending Labs on day of discharge: Laboratory Tests 06/25/20 06/25/20 06/25/20 14:17 14:17 14:17 WBC 10.3 RBC 4.04 L Hgb 11.8 L Hct 35.3 L MCV 87.4 MCH 29.2 MCHC 33.4 RDW 13.2 Plt Count 234 MPV 11.0 Immature Gran % (Auto) 0.3 Neut % (Auto) 68.1 Lymph % (Auto) 19.2 L [place] % (Auto) 7.6 Eos % (Auto) 4.4 H Baso % (Auto) 0.4 Lymph # (Auto) 2.0 [place] # (Auto) 0.8 Eos # (Auto) 0.5 H Baso # (Auto) 0.0 Abs Immat Gran (auto) 0.03 Absolute Neuts (auto) 7.0 Absolute Nucleated RBC 0.000 Nucleated RBC % (auto) 0.0 PT 13.5 H INR 1.1 Sodium 139 Potassium 4.2 Chloride 106 Carbon Dioxide 25 Anion Gap 12 BUN 31 H Creatinine 1.08 Estim Creat Clear Calc 60.4 Estimated GFR > 60 Random Glucose 88 Lactic Acid Calcium 8.4 Iron 83 TIBC 290 % Saturation 29 Unsat Iron Binding 207 Ferritin 46 Total Bilirubin 0.7 Direct Bilirubin 0.3 AST 36 ALT 24 Alkaline Phosphatase 59 Total Protein 6.7 Albumin 4.3 Urine Color Urine Appearance Urine pH Ur Specific [place] Urine Protein Urine Glucose (UA) Urine Ketones Urine Blood Urine Nitrite Ur Leukocyte Esterase Stool Occult Blood COVID-19 ([facility]) COVID-19 Clin Com Blood Type Antibody Screen 06/25/20 06/25/20 06/25/20 14:17 14:17 20:10 WBC RBC Hgb Hct MCV MCH MCHC RDW Plt Count MPV Immature Gran % (Auto) Neut % (Auto) Lymph % (Auto) [place] % (Auto) Eos % (Auto) Baso % (Auto) Lymph # (Auto) [place] # (Auto) Eos # (Auto) Baso # (Auto) Abs Immat Gran (auto) Absolute Neuts (auto) Absolute Nucleated RBC Nucleated RBC % (auto) PT INR Sodium Potassium Chloride Carbon Dioxide Anion Gap BUN Creatinine Estim Creat Clear Calc Estimated GFR Random Glucose Lactic Acid 0.6 Calcium Iron TIBC % Saturation Unsat Iron Binding Ferritin Total Bilirubin Direct Bilirubin AST ALT Alkaline Phosphatase Total Protein Albumin Urine Color YELLOW Urine Appearance CLEAR Urine pH 5.5 Ur Specific [place] >= 1.030 H Urine Protein NEG Urine Glucose (UA) NEG Urine Ketones >=80 Urine Blood NEG Urine Nitrite NEG Ur Leukocyte Esterase NEG Stool Occult Blood COVID-19 ([facility]) COVID-19 Clin Com Blood Type O Positive Antibody Screen NEGATIVE 06/25/20 06/25/20 06/26/20 21:31 21:33 01:06 WBC 8.7 RBC 3.50 L Hgb 10.4 L Hct 30.8 L MCV 88.0 MCH 29.7 MCHC 33.8 RDW 13.3 Plt Count 176 MPV 11.0 Immature Gran % (Auto) 0.2 Neut % (Auto) 61.3 Lymph % (Auto) 22.4 [place] % (Auto) 8.3 Eos % (Auto) 7.2 H Baso % (Auto) 0.6 Lymph # (Auto) 2.0 [place] # (Auto) 0.7 Eos # (Auto) 0.6 H Baso # (Auto) 0.1 Abs Immat Gran (auto) 0.02 Absolute Neuts (auto) 5.4 Absolute Nucleated RBC 0.000 Nucleated RBC % (auto) 0.0 PT INR Sodium Potassium Chloride Carbon Dioxide Anion Gap BUN Creatinine Estim Creat Clear Calc Estimated GFR Random Glucose Lactic Acid Calcium Iron TIBC % Saturation Unsat Iron Binding Ferritin Total Bilirubin Direct Bilirubin AST ALT Alkaline Phosphatase Total Protein Albumin Urine Color Urine Appearance Urine pH Ur Specific [place] Urine Protein Urine Glucose (UA) Urine Ketones Urine Blood Urine Nitrite Ur Leukocyte Esterase Stool Occult Blood POS COVID-19 ([facility]) Negative COVID-19 Clin Com See Note Blood Type Antibody Screen 06/26/20 06/26/20 05:53 05:53 WBC 8.4 RBC 3.47 L Hgb 10.4 L Hct 30.5 L MCV 87.9 MCH 30.0 MCHC 34.1 RDW 13.0 Plt Count 176 MPV 10.8 Immature Gran % (Auto) 0.1 Neut % (Auto) 49.9 Lymph % (Auto) 30.3 [place] % (Auto) 9.4 Eos % (Auto) 9.7 H Baso % (Auto) 0.6 Lymph # (Auto) 2.5 [place] # (Auto) 0.8 Eos # (Auto) 0.8 H Baso # (Auto) 0.1 Abs Immat Gran (auto) 0.01 Absolute Neuts (auto) 4.2 Absolute Nucleated RBC 0.000 Nucleated RBC % (auto) 0.0 PT INR Sodium 143 Potassium 4.1 Chloride 110 H Carbon Dioxide 24 Anion Gap 13 BUN 23 H Creatinine 0.85 Estim Creat Clear Calc 76.8 Estimated GFR > 60 Random Glucose 79 Lactic Acid Calcium 8.2 L Iron TIBC % Saturation Unsat Iron Binding Ferritin Total Bilirubin Direct Bilirubin AST ALT Alkaline Phosphatase Total Protein Albumin Urine Color Urine Appearance Urine pH Ur Specific [place] Urine Protein Urine Glucose (UA) Urine Ketones Urine Blood Urine Nitrite Ur Leukocyte Esterase Stool Occult Blood COVID-19 ([facility]) COVID-19 Clin Com Blood Type Antibody Screen Discharge Plan Discharge Patient Disposition: Home, Self-Care Referrals: Henry Young MD [Primary Care Provider] - Discharge Medications: New omeprazole 20 mg capsule,delayed release(DR/EC) 20 mg PO DAILY Qty: 30 RF: 0 Continued amlodipine 10 mg tablet 1 tab PO DAILY RF: 0 simvastatin 20 mg tablet 1 tab PO BEDTIME RF: 0 Discontinued naproxen 500 mg tablet 1 tab PO BID RF: 0 Discharge Orders: Discharge Order (Routine); Ordered 06/26/20 Ordered By: Tyler Montanez Diet: regular diet Activity on Discharge: As tolerated Stand Alone Forms: Patient Portal Discharge page Visit Report Forms: Patient Portal Discharge page Care Plan Goals: Call Dr. More office today to make an appointment for Monday to have colonoscopy scheduled in next 1-2 weeks Health Concerns: Lower GI bleed resolved Plan of Treatment: Follow-up with primary care physician and Dr. More next week Patient Instructions: Gastrointestinal Bleeding (DC) Discharge Date/Time: 06/26/20 13:20
--- NOTE | 2020-06-26 14:51 | MHC.CM.PN ---
Addendum entered by Amanda Rashid RN 06/26/20 14:53: PT WAS DISCHARGED HOME SELF-CARE Original Note: CM ATTEMPTED TO SEE PT HOWEVER PT HAD BEEN DISCHARGED, CM WAS UNABLE TO COMPLETE CM ASSESSMENT DUE TO PT DISCHARGE.
== END 2020-06-26 13:20 | disposition home or self-care (01) | DRG 379 ==
LOC: HO.ED 20:59 → HO.EDOVER 23:03
PROVIDERS: Nurse Practitioner Family; Admitting Provider Hospitalist; Emergency Provider Internal Medicine; PCP Internal Medicine; Visit Provider Hospitalist
DX: K57.31 Diverticulosis of large intestine without perforation or abscess with bleeding (principal); K80.20 Calculus of gallbladder without cholecystitis without obstruction; I10 Essential (primary) hypertension; E78.5 Hyperlipidemia, unspecified; Z96.652 Presence of left artificial knee joint; Z79.1 Long term (current) use of non-steroidal anti-inflammatories (NSAID); Z79.899 Other long term (current) drug therapy
CPT/HCPCS: 36415; 74176; 80048; 80076; 81003; 82272; 82728; 83540; 83605; 85025; 85610; 86850; 86900; 86901; 87635; 96374; 99284; 99285

== ENCOUNTER → 2020-07-14 09:42 | Outpatient (BNVA) | payer MEDICARE, SELFPAY | PROVIDERS: Visit Provider Orthopaedic Surgery | DX: M17.12 Unilateral primary osteoarthritis, left knee (principal) | CPT/HCPCS: 20610; 99212; J1040 ==

== ENCOUNTER 2020-07-15 12:20 | Day surgery (SDC) | payer MEDICARE, SELFPAY ==
[2020-07-10 13:00] VITALS: BMI 25.8
--- NOTE | 2020-07-13 14:08 | P.CONAN_ITS ---
Documented by User: Dominique Gee 07/13/20 14:10 HPI - Anesthesia Eval Consult details Narrative: 74yo [place] [facility] [place] for GI bleed. PMFSH Active Problems Active Problems: All Active Problems (Updated 07/10/20 @ 12:58 by Lucretia Cam) Primary osteoarthritis of left knee (Acute) GI bleed (Acute) Past Medical History Medical History Diverticulosis Elevated cholesterol GERD (gastroesophageal reflux disease) HTN (hypertension) Hx of basal cell carcinoma Osteoarthritis of both knees Surgical History Surgical History Hx of arthroscopy of left knee Hx of colonoscopy Hx of spinal surgery Social History Social History Alcohol intake: former Smoking Status: Never smoker Use of substances other than those prescribed or required for medical reasons: No Advance Directives: No Advance Directives Information Provided: No Advance Directives on File: No Current occupational status: retired Current occupation: [employer] Meds Allergies Allergy/AdvReac Type Severity Reaction Status Date / Time No Known Allergies Allergy Verified 07/14/20 09:49 Home Medications Medication Instructions Recorded Confirmed Last Taken Type amlodipine 1 tab PO DAILY 06/25/20 07/10/20 07/15/20 History simvastatin 1 tab PO BEDTIME 06/26/20 07/10/20 2 Days Ago History ~06/24/20 multivitamin 1 tab PO DAILY 07/10/20 07/10/20 Unknown History Exam Exam Date and Time: July 13, 2020 1408 Height,Weight and Vital Signs: Height 5 ft 6 in Weight 72.575 kg Pertinent Lab Results Pertinent Lab Results: Laboratory Tests 06/26/20 06/26/20 05:53 05:53 WBC 8.4 Hgb 10.4 L Hct 30.5 L Plt Count 176 Sodium 143 Potassium 4.1 Chloride 110 H Carbon Dioxide 24 BUN 23 H Creatinine 0.85 Assessment and Plan Assessment Anesthesia Assessment: Chart Reviewed Documented by User: Moriah Iglesias 07/15/20 13:12 PMFSH Past Medical History Medical History Diverticulosis Elevated cholesterol GERD (gastroesophageal reflux disease) HTN (hypertension) Hx of basal cell carcinoma Osteoarthritis of both knees Surgical History Surgical History Hx of arthroscopy of left knee Hx of colonoscopy Hx of spinal surgery Social History Social History Alcohol intake: former Smoking Status: Never smoker Use of substances other than those prescribed or required for medical reasons: No Advance Directives: No Advance Directives Information Provided: No Advance Directives on File: No Current occupational status: retired Current occupation: [employer] Meds Allergies Allergy/AdvReac Type Severity Reaction Status Date / Time No Known Allergies Allergy Verified 07/14/20 09:49 Home Medications Medication Instructions Recorded Confirmed Last Taken Type amlodipine 1 tab PO DAILY 06/25/20 07/10/20 07/15/20 History simvastatin 1 tab PO BEDTIME 06/26/20 07/10/20 2 Days Ago History ~06/24/20 multivitamin 1 tab PO DAILY 07/10/20 07/10/20 Unknown History Exam Airway Mallampati Class: II TM Dist: >3cm Neck ROM: Full
[2020-07-15 13:00] VITALS: BP 153/72; PULSE 89; RESP 16; TEMP 36.9; O2SAT 98
[2020-07-15] MEDS: Lactated Ringers 1,000 ML 100 ML IVCONT (13:15)
--- NOTE | 2020-07-15 13:30 | MHC.SHP ---
Pre-Procedural Eval Section A The patient is an INPATIENT: No Changes since office visit: No Cold of Flu in the past 2 weeks, No New Medical Problems, No Changes in Medication and No Patient answered all questions The History & Physical has been completed within 30 days and I have reviewed it.: Yes Section B Chief Complaint: bleeding Allergies: Allergies Allergy/AdvReac Type Severity Reaction Status Date / Time No Known Allergies Allergy Verified 07/14/20 09:49 Plan I have reviewed the history and physical and performed a pertinent physical examination on my patient. No changes have occurred unless specified.
--- NOTE | 2020-07-15 14:09 | PM.OP ---
Brief Operative Note Date of Service: 07/15/20 Pre-op diagnosis: rectal bleeding Post-op diagnosis: same (diverticulosis, colon polyp) Procedure: colonoscopy Surgeon: Alf More Anesthesia: MAC Estimated blood loss (mL): 2 Pathology: other (polyp x1) Condition: stable Disposition: PACU
[2020-07-15 14:14] VITALS: BP 102/48; PULSE 89; RESP 16; TEMP 37.1; O2SAT 97
--- NOTE | 2020-07-15 14:24 | OP_ITS ---
SURGEON: Alf More MD INDICATIONS: Rectal bleeding. PREOPERATIVE DIAGNOSIS: POSTOPERATIVE DIAGNOSIS: PROCEDURE PERFORMED: Colonoscopy to the terminal ileum with biopsy. ESTIMATED BLOOD LOSS: COMPLICATIONS: ANESTHESIA: ASSISTANTS: SPECIMENS: MEDICATIONS: Monitored anesthesia care. DESCRIPTION OF PROCEDURE: History and physical performed. The risks and benefits of the procedure were explained to the patient. Informed consent was obtained. The patient was placed in left lateral decubitus position. A digital rectal exam was performed and was found to be normal. The Olympus pediatric video colonoscope was introduced into the rectum and advanced to the cecum without difficulty. The cecum was identified by transillumination, palpation, and identification of ileocecal valve. Examination was performed and the scope was removed. He tolerated the procedure well and was taken to recovery area in stable condition. FINDINGS: The terminal ileum was normal. This was explored for approximately 30 cm. The visualized colonic mucosa was within normal limits without evidence of masses or ulcers. A single polyp measuring less than 5 mm was identified at 35 cm from the anal verge. This was removed with biopsy forceps. No other polyps were identified. There was moderate sigmoid diverticulosis. No rectal bleeding was identified. Retroflexed examination showed small internal hemorrhoids. The quality of prep was good with some liquid stool mainly in the right colon. This was washed and suctioned. IMPRESSION: 1. Colon polyp. 2. Diverticulosis. RECOMMENDATION: Follow up the biopsy results. MD KAYLA Hercules/[place]TON / [id number]
[2020-07-15 14:26] VITALS: BP 92/43; PULSE 97; RESP 16; O2SAT 99
[2020-07-15 14:35] VITALS: BP 102/50; PULSE 97; RESP 18; O2SAT 97
== END 2020-07-15 14:57 | disposition home or self-care (01) ==
PROVIDERS: PCP Internal Medicine; Visit Provider Internal Medicine Gastroenterology
PROC: 0DJD8ZZ Inspection of Lower Intestinal Tract, Via Natural or Artificial Opening Endoscopic (ICD-10-PCS; CPT 45378; principal; 2020-07-15 13:40)
DX: K62.5 Hemorrhage of anus and rectum (principal); Z86.010 Personal history of colon polyps; K51.40 Inflammatory polyps of colon without complications; K57.30 Diverticulosis of large intestine without perforation or abscess without bleeding; K64.8 Other hemorrhoids; K44.9 Diaphragmatic hernia without obstruction or gangrene; I10 Essential (primary) hypertension; Z79.899 Other long term (current) drug therapy; Z85.828 Personal history of other malignant neoplasm of skin
CPT/HCPCS: 45380; 88305; J2370

== ENCOUNTER → 2020-10-09 09:54 | Outpatient (BNVA) | payer MEDICARE, SELFPAY | PROVIDERS: PCP Internal Medicine; Visit Provider Orthopaedic Surgery | DX: M17.12 Unilateral primary osteoarthritis, left knee (principal) | CPT/HCPCS: 99212 ==

== ENCOUNTER → 2020-11-03 09:52 | Outpatient (BNVA) | payer MEDICARE, SELFPAY | PROVIDERS: PCP Internal Medicine; Visit Provider Orthopaedic Surgery | DX: Z01.812 Encounter for preprocedural laboratory examination (principal); Z01.810 Encounter for preprocedural cardiovascular examination; M17.12 Unilateral primary osteoarthritis, left knee ==

== ENCOUNTER → 2020-12-02 13:27 | Outpatient (BNVA) | payer MEDICARE, SELFPAY | PROVIDERS: PCP Internal Medicine; Visit Provider Physician Assistant | DX: M17.12 Unilateral primary osteoarthritis, left knee (principal) | CPT/HCPCS: 99212 ==

== ENCOUNTER 2020-12-07 07:41 | Day surgery (SDC) | payer MEDICARE, SELFPAY ==
[2020-11-24 11:56] VITALS: BP 165/82; PULSE 83; RESP 20; O2SAT 97; BMI 27.1
--- NOTE | 2020-11-24 12:24 | P.CONAN_ITS ---
Documented by User: Dominique Gee 12/04/20 09:59 HPI - Anesthesia Eval Consult details Narrative: 75yo M for Left Total Knee Replacement PMFSH Active Problems Active Problems: All Active Problems (Updated 11/24/20 @ 12:07 by Yessica Henderson) Primary osteoarthritis of left knee (Acute) GI bleed (Acute) Past Medical History Medical History Anemia Arthritis Cancer COVID-19 vaccine administered Diverticulosis Elevated cholesterol GERD (gastroesophageal reflux disease) History of diverticulitis HTN (hypertension) Hx of basal cell carcinoma Hx of sciatica Osteoarthritis of both knees Family History Family history of problems with anesthesia: No Surgical History Surgical History Hx of arthroscopy of left knee Hx of colonoscopy Hx of spinal surgery History of Problems with Anesthesia: No Social History Social History 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 If so, by whom?: No Are you DNR?: No Advance Directives: No Advance Directives Information Provided: No Advance Directives on File: No Recently lost weight without trying: No Eating poorly because of decreased appetite: No Nutrition Risks: No Nutritional Risk Poor oral hygiene: No Current occupational status: retired Current occupation: Right Handed Narrative Narrative: No recent illness No CP/SOB within limits of OA pain Meds Allergies Allergy/AdvReac Type Severity Reaction Status Date / Time No Known Allergies Allergy Verified 12/02/20 13:38 Home Medications Medication Instructions Recorded Confirmed Last Taken Type amlodipine 1 tab PO DAILY 06/25/20 11/24/20 12/07/20 07:00 History simvastatin 1 tab PO BEDTIME 06/26/20 11/24/20 2 Days Ago History ~06/24/20 multivitamin 1 tab PO DAILY 07/10/20 11/24/20 Unknown History ferrous sulfate 325 mg PO DAILY 11/24/20 11/24/20 Unknown History Exam Exam Date and Time: November 24, 2020 1224 Height,Weight and Vital Signs: Height 5 ft 6 in Weight 76.1 kg Last Vital Signs Pulse 83 11/24/20 11:56 Resp 20 11/24/20 11:56 BP 165/82 H 11/24/20 11:56 Pulse Ox 97 11/24/20 11:56 Pertinent Lab Results Pertinent Lab Results: CBC and VMP done at outside facility 11/04/20:WNL Lab Results 11/24/20 11/24/20 11/24/20 Range/Units 12:20 13:00 13:00 WBC 10.4 (4.8-10.8) X10*3/uL RBC 4.81 D (4.60-5.80) X10*6/uL Hgb 13.1 L D (14.0-18.0) g/dl Hct 40.9 L D (42-52) % MCV 85.0 (80-98) fL MCH 27.2 (27.0-33.0) pg MCHC 32.0 (31.0-36.0) g/dl RDW 15.6 (11.0-16.0) % Plt Count 232 D (160-400) X10*3/uL MPV 11.2 (9.4-12.4) fL Immature Gran % (Auto) 0.5 H (0.0-0.4) % Neut % (Auto) 69.2 (45-73) % Lymph % (Auto) 17.8 L (20-40) % [place] % (Auto) 7.8 (2-11) % Eos % (Auto) 4.0 (0-4) % Baso % (Auto) 0.7 (0-2) % Lymph # (Auto) 1.8 (1.2-4.9) X10*3/uL [place] # (Auto) 0.8 (0.1-1.2) X10*3/uL Eos # (Auto) 0.4 (0.0-0.4) X10*3/uL Baso # (Auto) 0.1 (0.0-0.2) X10*3/uL Abs Immat Gran (auto) 0.05 H (0.00-0.03) X10*3/uL Absolute Neuts (auto) 7.2 (2.0-8.3) X10*3/uL Absolute Nucleated RBC 0.000 (0.0-0.012) X10*3/uL Nucleated RBC % (auto) 0.0 (0.0-0.2) /100WBC Sodium (135-145) mmol/L Potassium (3.3-5.1) mmol/L Chloride (96-108) mmol/L Carbon Dioxide (22-29) mmol/L Anion Gap (12-20) BUN (9-16) mg/dL Creatinine (0.5-1.4) mg/dL Estim Creat Clear Calc Estimated GFR Random Glucose (60-115) mg/dL Calcium (8.4-10.2) mg/dL Nasal Screen MRSA (PCR) NEGATIVE (Negative) Nasal S. aureus Screen NEGATIVE (Negative) Nasal MRSA/S.aureus Interp SEE NOTE Blood Type O Positive Antibody Screen NEGATIVE 11/24/20 Range/Units 13:00 WBC (4.8-10.8) X10*3/uL RBC (4.60-5.80) X10*6/uL Hgb (14.0-18.0) g/dl Hct (42-52) % MCV (80-98) fL MCH (27.0-33.0) pg MCHC (31.0-36.0) g/dl RDW (11.0-16.0) % Plt Count (160-400) X10*3/uL MPV (9.4-12.4) fL Immature Gran % (Auto) (0.0-0.4) % Neut % (Auto) (45-73) % Lymph % (Auto) (20-40) % [place] % (Auto) (2-11) % Eos % (Auto) (0-4) % Baso % (Auto) (0-2) % Lymph # (Auto) (1.2-4.9) X10*3/uL [place] # (Auto) (0.1-1.2) X10*3/uL Eos # (Auto) (0.0-0.4) X10*3/uL Baso # (Auto) (0.0-0.2) X10*3/uL Abs Immat Gran (auto) (0.00-0.03) X10*3/uL Absolute Neuts (auto) (2.0-8.3) X10*3/uL Absolute Nucleated RBC (0.0-0.012) X10*3/uL Nucleated RBC % (auto) (0.0-0.2) /100WBC Sodium 141 (135-145) mmol/L Potassium 4.3 (3.3-5.1) mmol/L Chloride 106 (96-108) mmol/L Carbon Dioxide 27 (22-29) mmol/L Anion Gap 12 (12-20) BUN 17 H (9-16) mg/dL Creatinine 1.08 (0.5-1.4) mg/dL Estim Creat Clear Calc 54.9 Estimated GFR > 60 Random Glucose 93 (60-115) mg/dL Calcium 9.8 D (8.4-10.2) mg/dL Nasal Screen MRSA (PCR) (Negative) Nasal S. aureus Screen (Negative) Nasal MRSA/S.aureus Interp Blood Type Antibody Screen Narrative Narrative: EKG 11/2020 Vent. Rate : 077 BPM Atrial Rate : 077 BPM P-R Int : 156 ms QRS Dur : 080 ms QT Int : 364 ms P-R-T Axes : 064 -20 026 degrees QTc Int : 411 ms Normal sinus rhythm Normal ECG No previous ECGs available Airway Mallampati Class: II TM Dist: >3cm Neck ROM: Full Loose/Missing/Broken Teeth: No (1 x crowned molar) Heart: RRR Lungs: CTAB Assessment and Plan Assessment Anesthesia Assessment: Anesthesia Plan Discussed and PAT Visit Documented by User: Oscar Oates 12/07/20 09:23 [facility] Past Medical History Medical History Anemia Arthritis Cancer COVID-19 vaccine administered Diverticulosis Elevated cholesterol GERD (gastroesophageal reflux disease) History of diverticulitis HTN (hypertension) Hx of basal cell carcinoma Hx of sciatica Osteoarthritis of both knees Surgical History Surgical History Hx of arthroscopy of left knee Hx of colonoscopy Hx of spinal surgery Social History Social History 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 If so, by whom?: No Are you DNR?: No Advance Directives: No Advance Directives Information Provided: No Advance Directives on File: No Recently lost weight without trying: No Eating poorly because of decreased appetite: No Nutrition Risks: No Nutritional Risk Poor oral hygiene: No Current occupational status: retired Current occupation: Right Handed Meds Allergies Allergy/AdvReac Type Severity Reaction Status Date / Time No Known Allergies Allergy Verified 12/02/20 13:38 Home Medications Medication Instructions Recorded Confirmed Last Taken Type amlodipine 1 tab PO DAILY 06/25/20 11/24/20 12/07/20 07:00 History simvastatin 1 tab PO BEDTIME 06/26/20 11/24/20 2 Days Ago History ~06/24/20 multivitamin 1 tab PO DAILY 07/10/20 11/24/20 Unknown History ferrous sulfate 325 mg PO DAILY 11/24/20 11/24/20 Unknown History Exam Airway Mallampati Class: II TM Dist: >3cm Neck ROM: Full Loose/Missing/Broken Teeth: No Heart: [id number] Lungs: cta b/l Assessment and Plan Assessment Anesthesia Assessment: Anesthesia Plan Discussed, PAT Visit and Chart Reviewed Final Anesthetic Review NPO: Yes ASA Class: III Final Preanesthetic Review: No Changes in Pt Med Stat, Meds/Allgs Chart Reviewed, Consent Obtained/Reviewed and Anes Risks/Benef Reviewed Patient Risk: Intermediate Procedure Risk: Low Assessment/Block/Sedation in SS: Assess/Block/Sedation-SS Anesthetic Plan Anesthetic Plan: Spinal and Agree w/ Assess. and Plan Disposition: Standard PACU
--- NOTE | 2020-11-24 13:09 | ECG_ITS ---
Test Reason : PREOP Blood Pressure : / mmHG Vent. Rate : 077 BPM Atrial Rate : 077 BPM P-R Int : 156 ms QRS Dur : 080 ms QT Int : 364 ms P-R-T Axes : 064 -20 026 degrees QTc Int : 411 ms Normal sinus rhythm Normal ECG No previous ECGs available Referred By: Leora Martinez Electronically Signed By:JOSÉ ONOFRE
[2020-11-24 13:16] LABS: MANUAL DIFF FLAG NO
[2020-11-24 13:17] LABS: Basophils Absolute Auto 0.1 X10*3/uL (0.0-0.2); Basophils Percent Auto 0.7 % (0-2); Eosinophils Absolute Auto 0.4 X10*3/uL (0.0-0.4); Hematocrit 40.9 % (42-52); Hemoglobin 13.1 g/dl (14.0-18.0); Imm Gran Abs Auto 0.05 X10*3/uL (0.00-0.03); Imm Gran Pct Auto 0.5 % (0.0-0.4); Lymphocytes Absolute Auto 1.8 X10*3/uL (1.2-4.9); Lymphocytes Percent Auto 17.8 % (20-40); Mean Corpuscular Hemoglobin 27.2 pg (27.0-33.0); Mean Platelet Volume 11.2 fL (9.4-12.4); Monocytes Absolute Auto 0.8 X10*3/uL (0.1-1.2); Monocytes Percent Auto 7.8 % (2-11); Neutrophils Absolute Auto 7.2 X10*3/uL (2.0-8.3); Neutrophils Percent Auto 69.2 % (45-73); Platelet Count 232 X10*3/uL (160-400); Red Blood Count 4.81 X10*6/uL (4.60-5.80); Red Cell Distribution Width 15.6 % (11.0-16.0); White Blood Count 10.4 X10*3/uL (4.8-10.8)
[2020-11-24 13:43] LABS: Anion Gap 12 (12-20); Blood Urea Nitrogen 17 mg/dL (9-16); Calcium 9.8 mg/dL (8.4-10.2); Carbon Dioxide 27 mmol/L (22-29); Chloride 106 mmol/L (96-108); Creatinine Clr Calc Pharmacy 54.9; Estimated Glomerular Filt Rate > 60; Glucose Random 93 mg/dL (60-115); Potassium 4.3 mmol/L (3.3-5.1); Sodium 141 mmol/L (135-145)
[2020-11-24 14:13] LABS: MRSA Nasal PCR NEGATIVE (Negative); SA Nasal PCR NEGATIVE (Negative)
[2020-12-07] VITALS (12 sets, daily range): BP systolic 108–150; BP diastolic 53–84; PULSE 64–89; RESP 16–24; TEMP 36.2–36.8; O2SAT 97–100
--- NOTE | ~2020-12-07 | XR_ITS ---
EXAMINATION: XR KNEE, LEFT CLINICAL INFORMATION: Postop COMPARISON: April 08, 2020 TECHNIQUE: AP and lateral views of the left knee. FINDINGS: Patient status post left total knee arthroplasty. Components appear in good position. No acute fracture is evident. Staple lines seen about the anterior knee. Gas is soft tissues. Prominent vascular calcifications noted. XR/XR knee LT 2V IMPRESSION: Satisfactory appearance status post left total knee arthroplasty.
--- NOTE | 2020-12-07 07:37 | MHC.SHP ---
Pre-Procedural Eval Section A Date of Service: 12/07/20 The patient is an INPATIENT: No Changes since office visit: No Cold of Flu in the past 2 weeks, No New Medical Problems, No Changes in Medication and No Patient answered all questions The History & Physical has been completed within 30 days and I have reviewed it.: Yes Section B Chief Complaint: Left Knee Osteoarthritis Allergies: Allergies Allergy/AdvReac Type Severity Reaction Status Date / Time No Known Allergies Allergy Verified 12/02/20 13:38 Plan I have reviewed the history and physical and performed a pertinent physical examination on my patient. No changes have occurred unless specified.
[2020-12-07 08:22] LABS: COVID-19 Test Negative (Negative); IDNOW Serial# 9DD0AD1C
[2020-12-07] MEDS: Lactated Ringers 1,000 ML 80 ML IVCONT (08:42)
--- NOTE | 2020-12-07 13:11 | P.OP_ITS ---
Operative Note Operative Note Date of Service: 12/07/20 Narrative: SURGEON: Dr Leora Shannon) Juan CASTRO ELEVATOR REPAIRER: Tanner Harkins PAC PREOP DIAGNOSIS: Osteoarthritis left knee POSTOP DIAGNOSIS: Same OPERATIVE PROCEDURE: Left Total knee arthroplasty - NILA NEXGEN CRFlex size F left femoral component, 5 x 10 mm tibial component, 32 mm patella component CLINICAL NOTE: This individual comes in today in regards to their knee. Has osteoarthritis. Has failed non operative management. Therefore after explaining the risks benefits and alternatives and answering all the questions it was mutually agreed upon care following procedure OPERATIVE DETAILS With of regional and spinal anesthetic the patient was placed supine on the operating table. Pneumatic tourniquet cuff was placed around the upper thigh and inflated to 300 mm of mercury at the beginning of the case. The leg was then prepped and draped in standard fashion with the leg free. Surgical time-out was then performed. The patient was identified. Procedure confirmed. Site confirmed. Medical and allergy history reviewed. Preoperative antibiotics were given. Standard DVT prophylaxis in place. Transexamic acid was given as well. All other items were discussed and agreed upon. Standard small midline incision was made. Was taken down through the subcutaneous tissues. Hemostasis achieved along the way using electrocautery. This brought us to the extensor mechanism where a medial parapatellar arthrotomy in a subvastus technique was performed. The patella was retracted into the lateral gutter. The soft tissues were elevated from the anterior aspect of the femur. At the level of the tibia the soft tissue elevated medially excising a portion of the meniscus as well as protecting the medial-sided soft tissues. Similarly on the lateral side a portion of the fat pad, portion of the meniscus were excised. The lateral-sided soft tissues were elevated protecting them as well. The ACL was resected. We turned our attention then to the femur. Standard Intermedullary hole was established. The cutting guide was set for 5 degrees of valgus with a standard cut. It was held in place with pins and the surface resected flat. The sizing guide was then used. The femur was sized to a F. The 3 degree external rotation pins were set. The all in 1 cutting guide for this size was placed the pins and centered over the distal cut. Following this the anterior and anterior chamfer cuts, the posterior and posterior chamfer cuts, the patellar recess cuts, as well as the lug holes were made. The guide was removed. The bony fragments removed and we turned our attention to the tibia. The remainder of the medial and lateral menisci were excised. The extramedullary guide was then used in standard fashion referencing the tibial tubercle, the subcutaneous border of the tibia, and the middle of the ankle. The slope was then set. The cut was referenced from the more worn size for a minimal cut. The surface was then resected. The bony segment removed. The tibia was then trialed to a size 5. It was aligned as the extramedullary guide had been. A 10 mm trial insert was put into place. The femoral trial was also applied with good fit. The alignment of the leg was excellent. The knee was then placed through a range of motion which demonstrated full extension full flexion stable medially and laterally at 0, 30, 60, and 90 degrees of flexion. Patella tracked centrally. Turning our attention to the patella. The soft tissues were elevated circumferentially. The surface was resected flat. It sized to 32 mm. the lug hole was drilled in standard fashion. The trial component was put into place with excellent fit. It tracked nicely through flexion and extension. Therefore the trial sizes were appropriate and therefore the permanent components were selected and brought up onto the table. The trial components were then all removed after the peg holes for the tibia were made. The tourniquet was then let down with total tourniquet time of 47 minutes. The area of the lateral geniculate artery was identified and cauterized. Any excessive bleeding points were also cauterized. The knee was then thoroughly irrigated. The permanent components were brought up onto the table. The tibia followed by the femur followed by the patella were all Press- Fit into place. The knee was placed through range of motion. It had full flexion and extension. It was stable medial and laterally in all positions. Patella tracked centrally. And therefore we proceeded to closure. Wound was thoroughly irrigated. The extensor mechanism was closed with #2 Quill suture. The skin was approximated with 2-0 Polysorb suture. The skin was closed with nathan. Sterile dressing was then applied. The patient was then transferred supine to the room bed and taken to the recovery room in good condition. Intraoperatively a 2nd unit a transxemic acid was given at the time of closure. There was approximately 50 cc blood loss. No intraop transfusions or complications. .
[2020-12-07] MEDS: Ketorolac Tromethamine 15 MG/ML VIAL IVPUSH ×2 (13:13→17:59)
[2020-12-07] MEDS: oxyCODONE HCl Immed Release 5 MG TABLET 10 MG PO ×2 (13:13→17:58)
[2020-12-07] MEDS: Acetaminophen 325 MG TABLET 650 MG PO ×2 (13:13→17:58)
--- NOTE | 2020-12-07 15:04 | PM.IMCN ---
History of Present Illness Data of Consult Service Date: 12/07/20 Primary Care Provider: Henry Young MD [facility] Reason for consult: medical management 75-year-old man admitted by Orthopedic surgery and is status post left knee arthroplasty. Surgery was unremarkable. Patient has been able to eat and drink without any nausea or vomiting. His vital signs are stable. He has no acute medical complaints at this time. Review of Systems Review of Systems: Denies any recent fever chills or decrease in appetite respiratory denies any shortness of breath coverage production cardiovascular is adjustment of any PND or edema gastrointestinal denies any dysphagia abdominal pain nausea vomiting or diarrhea genitourinary denies any dysuria frequency or hematuria musculoskeletal left knee pain neuropsych denies any weakness or seizures all other systems reviewed are negative [facility] Medical History Anemia Arthritis Cancer COVID-19 vaccine administered Diverticulosis Elevated cholesterol GERD (gastroesophageal reflux disease) History of diverticulitis HTN (hypertension) Hx of basal cell carcinoma Hx of sciatica Osteoarthritis of both knees Family History (Updated 12/07/20 @ 15:18 by Rosina Currie NP) Mother Breast cancer Surgical History Hx of arthroscopy of left knee Hx of colonoscopy Hx of spinal surgery Social History 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 If so, by whom?: No Are you DNR?: No Advance Directives: No Advance Directives Information Provided: No Advance Directives on File: No Recently lost weight without trying: No Eating poorly because of decreased appetite: No Nutrition Risks: No Nutritional Risk Poor oral hygiene: No Current occupational status: retired Current occupation: Right Handed Meds Allergies Allergy/AdvReac Type Severity Reaction Status Date / Time No Known Allergies Allergy Verified 12/02/20 13:38 Active Medications: Current Medications Generic Name Dose Route Start Last Admin Trade Name Freq PRN Reason Stop Dose Admin Acetaminophen 650 mg 12/07/20 12:00 12/07/20 13:13 Acetaminophen 325 Mg Tablet PO 650 mg Q6H AMADEO Administration Aspirin 325 mg 12/08/20 22:00 Aspirin 325 Mg Tablet PO BID@1000,2200 [facility] Lactated Ringer's 1,000 mls @ 80 mls/hr 12/07/20 08:00 12/07/20 08:42 Lr IVCONT 80 mls/hr .[id number] AMADEO Administration Cefazolin Sodium 2 gm/ Sodium 50 mls @ 100 mls/hr 12/07/20 16:00 Chloride IV 12/07/20 16:29 POSTOP ONE Ketorolac Tromethamine 15 mg 12/07/20 12:00 12/07/20 13:13 Ketorolac Tromethamine 15 Mg/Ml Vial IVPUSH 15 mg Q6H AMADEO Administration Morphine Sulfate 2 mg 12/07/20 12:31 Morphine Sulfate 2 Mg/Ml Cartridge IVPUSH Q2H PRN Pain, Severe (Pain Scale 7-10) Naloxone HCl 0.2 mg 12/07/20 12:31 Naloxone Hcl 0.4 Mg/Ml Vial IVPUSH Q2M PRN Excessive sedation or RR < 8 Ondansetron HCl 4 mg 12/07/20 12:31 Ondansetron Hcl 4 Mg/2 Ml Vial IVPUSH Q8H PRN Nausea and Vomiting Oxycodone HCl 10 mg 12/07/20 12:00 12/07/20 13:13 Oxycodone Hcl Immed Release 5 Mg Tablet PO 10 mg Q6H [facility] Administration Sodium Chloride 3 ml 12/07/20 16:00 0.9 % Sodium Chloride Flush 3 M[facility] Medications Medication Instructions Recorded Confirmed Last Taken Type amlodipine 1 tab PO DAILY 06/25/20 11/24/20 12/07/20 07:00 History simvastatin 1 tab PO BEDTIME 06/26/20 11/24/20 2 Days Ago History ~06/24/20 multivitamin 1 tab PO DAILY 07/10/20 11/24/20 Unknown History ferrous sulfate 325 mg PO DAILY 11/24/20 11/24/20 Unknown History Physical Exam Vital Signs and Narrative: Vital Signs: Last Vital Signs Temp 97.1 F 12/07/20 13:25 Pulse 67 12/07/20 14:13 Resp 18 12/07/20 13:25 BP 134/76 12/07/20 14:13 Pulse Ox 100 12/07/20 14:13 Body Mass Index 27.1 Appearing in no acute distress head is normocephalic atraumatic eyes pupils are PERRLA sclera is anicteric mouth throat mucous membranes are intact and moist neck is supple no lymphadenopathy, no JVD noted lung sounds are clear to auscultation heart regular rate rhythm, clear S1, S2 positive bowel sounds, abdomen is soft, nontender neuro patient is alert x3, no focal deficits Left knee surgical dressing intact, no staining, surgical incision not visualized Results Labs CBC and Chem 7: 11/24/20 13:00 11/24/20 13:00 Labs: Laboratory Results - last 24 hr 12/07/20 07:57 COVID-19 ([facility]) Negative COVID-19 Clin Com See Note Assessment and Plan (1) Primary osteoarthritis of left knee: Status: Acute 75-year-old man admitted by Orthopedic surgery and status post left total knee arthroplasty Left total knee arthroplasty. Management as per surgical team Pain management Hypertension. Stable blood pressure. Continue amlodipine GERD Continue PPI Hyperlipidemia Statin on discharge. Anemia. No signs of active bleeding Continue iron supplementation DVT prophylaxis as per surgical team Attending Dr. Araujo Full code
[2020-12-07] MEDS: Morphine Sulfate 2 MG/ML CARTRIDGE IVPUSH ×2 (16:21→19:50)
[2020-12-07] MEDS: 0.9 % Sodium Chloride Flush 3 ML SYRINGE IVFLUSH (16:21)
[2020-12-07] MEDS: ondansetron HCL 4 MG/2 ML VIAL IVPUSH (16:23)
[2020-12-08] VITALS (8 sets, daily range): BP systolic 115–163; BP diastolic 58–85; PULSE 8–98; RESP 14–16; TEMP 36.1–36.9; O2SAT 95–98
[2020-12-08] MEDS: Acetaminophen 325 MG TABLET 650 MG PO ×4 (01:22→18:09)
[2020-12-08] MEDS: oxyCODONE HCl Immed Release 5 MG TABLET 10 MG PO ×4 (01:22→18:08)
[2020-12-08] MEDS: Ketorolac Tromethamine 15 MG/ML VIAL IVPUSH ×4 (01:22→18:09)
[2020-12-08] MEDS: Lactated Ringers 1,000 ML 80 ML IVCONT (04:06)
[2020-12-08] MEDS: Omeprazole 20 MG CAPSULE.DR PO (06:38)
[2020-12-08 06:49] LABS: Hematocrit 33.4 % (42-52); Hemoglobin 10.7 g/dl (14.0-18.0)
--- NOTE | 2020-12-08 07:46 | P.PNOP_ITS ---
Subjective Subjective Date of Service: 12/08/20 Interval history: POD 1 s/p LT TKA no overnight events has been out of bed to commode-has discomfort denies cp, sob, palpitations Physical Exam Vital Signs: Vital Signs: Last Vital Signs Temp 98.4 F 12/08/20 07:24 Pulse 91 12/08/20 07:24 Resp 16 12/08/20 07:24 BP 137/65 12/08/20 07:24 Pulse Ox 97 12/08/20 07:24 Body Mass Index 27.1 Const: General: cooperative, healthy appearing and no acute distress Resp: Effort & Inspection: normal respiratory effort and able to speak in complete sentences Cardio: Rate: regular rate Peripheral pulses: Peripheral pulses 2+ throughout GI: Palpation (GI): Soft to palpation Skin: General skin exam: no rashes or lesions noted Extrem: Other: incision clean dry and intact. . No erythema or joint effusion. Calf supple nontender. Neurovascularly intact. Progress Note: A&P Assessment and plan (1) Status post total left knee replacement: Status: Acute Assessment and Plan: * Continue pain mgmnt * Begin lovenox for dvt ppx * begin PT for LT TKA * Dispo planning-Pending PT eval, pain mgmnt Fall Risk Details Current Medications: Current Medications Generic Name Dose Route Start Last Admin Trade Name Yanci PRN Reason Stop Dose Admin Acetaminophen 650 mg 12/07/20 12:00 12/08/20 06:38 Acetaminophen 325 Mg Tablet PO 650 mg Q6H AMADEO Administration Amlodipine Besylate 10 mg 12/08/20 09:00 Amlodipine Besylate 10 Mg Tablet PO DAILY [facility] Protocol Enoxaparin Sodium 40 mg 12/08/20 12:45 Enoxaparin Sodium 40 Mg/0.4 Ml Syringe SUBCUT Q24H [facility] Ferrous Sulfate 324 mg 12/08/20 09:00 Ferrous Sulfate 324 Mg Tablet.Dr PO DAILY AMADEO Lactated Ringer's 1,000 mls @ 80 mls/hr 12/07/20 08:00 12/08/20 04:06 Lr IVCONT 80 mls/hr .[id number] AMADEO Administration Ketorolac Tromethamine 15 mg 12/07/20 12:00 12/08/20 06:38 Ketorolac Tromethamine 15 Mg/Ml Vial IVPUSH 15 mg Q6H AMADEO Administration Morphine Sulfate 2 mg 12/07/20 12:31 12/07/20 19:50 Morphine Sulfate 2 Mg/Ml Cartridge IVPUSH 2 mg Q2H PRN Administration Pain, Severe (Pain Scale 7-10) Multivitamins/Vitamin C 1 tab 12/08/20 09:00 Multivitamin Tablet PO DAILY [facility] Naloxone HCl 0.2 mg 12/07/20 12:31 Naloxone Hcl 0.4 Mg/Ml Vial IVPUSH Q2M PRN Excessive sedation or RR < 8 Omeprazole 20 mg 12/08/20 06:30 12/08/20 06:38 Omeprazole 20 Mg Capsule. PO 20 mg DAILY@0630 AMADEO Administration Ondansetron HCl 4 mg 12/07/20 12:31 12/07/20 16:23 Ondansetron Hcl 4 Mg/2 Ml Vial IVPUSH 4 mg Q8H PRN Administration Nausea and Vomiting Oxycodone HCl 10 mg 12/07/20 12:00 12/08/20 06:38 Oxycodone Hcl Immed Release 5 Mg Tablet PO 10 mg Q6H AMADEO Administration Sodium Chloride 3 ml 12/07/20 16:00 12/08/20 01:23 0.9 % Sodium Chloride Flush 3 Ml Syringe IVFLUSH Not Given QSHIFT [facility] Time Spent With Patient Time: Total time spent is greater than 50% in coordination of care (as documented) at patient's floor/unit and/or counseling patient: Time with patient: less than 15 minutes Procedures Date of Service Date of Service: 12/08/20 Quality Stroke Does the patient have a stroke diagnosis?: No VTE Prior VTE?: No VTE Risk Level:: Surgical - very high VTE Device Contraindication: N/A - Device Ordered VTE Drug Contraindication: N/A - Med Ordered
[2020-12-08] MEDS: amLODIPine Besylate 10 MG TABLET PO (08:06)
[2020-12-08] MEDS: Multivitamin TABLET 1 TAB PO (08:06)
[2020-12-08] MEDS: Ferrous Sulfate 324 MG TABLET.DR PO (08:06)
[2020-12-08 08:50] LABS: Estimated Glomerular Filt Rate > 60
--- NOTE | 2020-12-08 11:10 | HO.POSTANES ---
Post Anesthesia Evaluation Post Anesthesia Evaluation Vital Signs: Vital Signs Temp Pulse Resp BP Pulse Ox 12/08/20 08:02 91 137/65 97 12/08/20 07:24 98.4 F 91 16 137/65 97 12/08/20 04:00 97.6 F 91 16 142/72 H 95 12/08/20 00:00 97.0 F 98 16 163/85 H 98 Anesthesia: Spinal and Nerve Block Mental Status: Awake Pain Control: Satisfactory Nausea/Vomiting: None Hydration: Adequate Anesthesia-Related Issues: No Anes. Related Issues
[2020-12-08] MEDS: Enoxaparin Sodium 40 MG/0.4 ML SYRINGE SUBCUT (12:01)
--- NOTE | 2020-12-08 13:03 | MHC.CM.PN ---
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 HE REPORTED HE IS ACTIVE, INDEPENDENT IN ALL ADLS AND MOBILITY HE HAS NO VNA/NO DME SERVICES IN THE HOME . HE IS A [employer] YEARS IN THE [employer] BUT DOES NOT UTILIZE ANY OD [facility] SERVICES [facility]. DISCHARGE PLAN HOME WITH NEW REF. TO THE [facility] FOR [facility] AND [facility] PT) TRANSP-FAMILY PCP DR DOMONIQUE ROJAS
--- NOTE | 2020-12-08 16:14 | HO.PM.IMPN ---
Subjective Subjective Date of Service: 12/08/20 Interval History: seen this afternoon ambulated in the hallway no complaints ROS General - no fevers or chills Cardiovascular - no chest pain Respiratory - no shortness of breath or cough Abdominal- no abdominal pain, nausea, vomiting, diarrhea Physical Exam Vital Signs: Vital Signs: Last Vital Signs Temp 97.7 F 12/08/20 15:20 Pulse 73 12/08/20 15:20 Resp 15 12/08/20 15:20 BP 117/66 12/08/20 15:20 Pulse Ox 96 12/08/20 15:20 Body Mass Index 27.1 Const: Other: General - no acute distress, appears comfortable Cardiovascular - regular rate and rhythm, S1-S2 Lungs - normal respiratory effort, clear to auscultation bilaterally, no wheezing Abdomen - soft, nontender, no rebound or guarding Extremities - no edema bilaterally Neuro - awake and alert, no focal deficits Objective Data Current Medications Generic Name Dose Route Start Last Admin Trade Name Freq PRN Reason Stop Dose Admin Acetaminophen 650 mg 12/07/20 12:00 12/08/20 12:00 Acetaminophen 325 Mg Tablet PO 650 mg Q6H AMADEO Administration Amlodipine Besylate 10 mg 12/08/20 09:00 12/08/20 08:06 Amlodipine Besylate 10 Mg Tablet PO 10 mg DAILY AMADEO Administration Protocol Enoxaparin Sodium 40 mg 12/08/20 13:00 12/08/20 12:01 Enoxaparin Sodium 40 Mg/0.4 Ml Syringe SUBCUT 40 mg Q24H AMADEO Administration Ferrous Sulfate 324 mg 12/08/20 09:00 12/08/20 08:06 Ferrous Sulfate 324 Mg Tablet.Dr PO 324 mg DAILY AMADEO Administration Lactated Ringer's 1,000 mls @ 80 mls/hr 12/07/20 08:00 12/08/20 04:06 Lr IVCONT 80 mls/hr .[id number] AMADEO Administration Ketorolac Tromethamine 15 mg 12/07/20 12:00 12/08/20 12:01 Ketorolac Tromethamine 15 Mg/Ml Vial IVPUSH 15 mg Q6H AMADEO Administration Morphine Sulfate 2 mg 12/07/20 12:31 12/07/20 19:50 Morphine Sulfate 2 Mg/Ml Cartridge IVPUSH 2 mg Q2H PRN Administration Pain, Severe (Pain Scale 7-10) Multivitamins/Vitamin C 1 tab 12/08/20 09:00 12/08/20 08:06 Multivitamin Tablet PO 1 tab DAILY AMADEO Administration Naloxone HCl 0.2 mg 12/07/20 12:31 Naloxone Hcl 0.4 Mg/Ml Vial IVPUSH Q2M PRN Excessive sedation or RR < 8 Omeprazole 20 mg 12/08/20 06:30 12/08/20 06:38 Omeprazole 20 Mg Capsule.Dr PO 20 mg DAILY@0630 [facility] Administration Ondansetron HCl 4 mg 12/07/20 12:31 12/07/20 16:23 Ondansetron Hcl 4 Mg/2 Ml Vial IVPUSH 4 mg Q8H PRN Administration Nausea and Vomiting Oxycodone HCl 10 mg 12/07/20 12:00 12/08/20 12:00 Oxycodone Hcl Immed Release 5 Mg Tablet PO 10 mg Q6H AMADEO Administration Sodium Chloride 3 ml 12/07/20 16:00 12/08/20 15:21 0.9 % Sodium Chloride Flush 3 Ml Syringe IVFLUSH Not Given QSHIFT [facility] Labs CBC & Chem 7: 12/08/20 06:11 12/08/20 08:12 Labs: Laboratory Results - last 24 hr 12/08/20 12/08/20 06:11 08:12 Hgb 10.7 L Hct 33.4 L Creatinine 1.14 Estim Creat Clear Calc 52.0 Estimated GFR > 60 Quality Stroke Does the patient have a stroke diagnosis?: No VTE Prior VTE?: No VTE Risk Level:: Surgical - very high VTE Device Contraindication: N/A - Device Ordered VTE Drug Contraindication: N/A - Med Ordered Assessment and Plan (1) Primary osteoarthritis of left knee: Status: Acute Assessment and Plan: 75-year-old man admitted by Orthopedic surgery and status post left total knee arthroplasty Hypertension. Stable blood pressure. Continue amlodipine GERD Continue PPI Hyperlipidemia Statin on discharge. Left total knee arthroplasty. Management as per surgical team Pain management medically stable will sign off, please re-consult with any questions / concerns.
[2020-12-09] VITALS: RESP 16
[2020-12-09] MEDS: 0.9 % Sodium Chloride Flush 3 ML SYRINGE IVFLUSH ×2 (00:41→07:47)
[2020-12-09] MEDS: Ketorolac Tromethamine 15 MG/ML VIAL IVPUSH ×2 (00:41→06:13)
[2020-12-09] MEDS: oxyCODONE HCl Immed Release 5 MG TABLET 10 MG PO ×2 (00:41→06:13)
[2020-12-09] MEDS: Acetaminophen 325 MG TABLET 650 MG PO ×2 (00:41→06:13)
[2020-12-09 00:46] VITALS: BP 139/70; PULSE 84; RESP 16; TEMP 36.3; O2SAT 93
[2020-12-09 04:00] VITALS: BP 116/59; PULSE 73; RESP 16; TEMP 36.9; O2SAT 93
[2020-12-09 06:24] LABS: Hematocrit 29.3 % (42-52); Hemoglobin 9.5 g/dl (14.0-18.0)
[2020-12-09 07:32] VITALS: BP 116/59; PULSE 73; O2SAT 93
[2020-12-09 07:38] VITALS: BP 112/58; PULSE 78; RESP 16; TEMP 36.4; O2SAT 95
[2020-12-09] MEDS: Multivitamin TABLET 1 TAB PO (07:46)
[2020-12-09] MEDS: Ferrous Sulfate 324 MG TABLET.DR PO (07:46)
[2020-12-09] MEDS: amLODIPine Besylate 10 MG TABLET PO (07:46)
--- NOTE | 2020-12-09 08:12 | P.DS_ITS ---
DS: Providers Provider Date of Service: 12/09/20 Primary care physician: Henry Young MD Consults: 12/07/20 12:31 Consult to Hospitalist Routine Consulting Provider: Hospitalist Reason For Exam: medical issues DS: Diagnosis Discharge Diagnosis (1) Status post total left knee replacement: Status: Acute DS: Medications Discharge Medications Home Medications: Home Medications Medication Instructions Recorded Confirmed amlodipine 1 tab PO DAILY 06/25/20 11/24/20 simvastatin 1 tab PO BEDTIME 06/26/20 11/24/20 multivitamin 1 tab PO DAILY 07/10/20 11/24/20 ferrous sulfate 325 mg PO DAILY 11/24/20 11/24/20 Previous Rx's Medication Instructions Recorded omeprazole 20 mg PO DAILY #30 cap 06/26/20 acetaminophen 650 mg PO Q6H 30 Days #240 tab 12/09/20 oxycodone 10 mg PO Q6H 7 Days #56 tab 12/09/20 DS: Summary Hospital Course Hospital Course: Mr. Tubbs was scheduled for left total knee arthroplasty with Dr. Martinez. He continued to have ongoing pain and difficulty with ambulation in the left knee, which was affecting his quality of life; therefore, he elected to move for andino with surgery. The patient underwent a successful LT TK arthroplasty, was transferred to PACU and then to the floor to recover. During their stay, their vitals were stable, afebrile at 97.5 . Labs were unremarkable, H/H 9.5/29.3 . POD 1 he was started on Lovenox for DVT ppx, they also received services twice a day. Prior to discharge, their dressing was change, incision clean dry and intact, new Aquacel dressing applied and the plan was to be discharged home with vna services Time Spent with Patient Time attestation: Total time spent providing and/or coordinating discharge services: Discharge coordination time: Less than 30 minutes Quality: Stroke Does the patient have a stroke diagnosis?: No Physical Exam Vital Signs: Vital Signs: Last Vital Signs Temp 97.5 F 12/09/20 07:38 Pulse 78 12/09/20 07:38 Resp 16 12/09/20 07:38 BP 112/58 L 12/09/20 07:38 Pulse Ox 95 12/09/20 07:38 Body Mass Index 27.1 Const: General: cooperative, healthy appearing and no acute distress Resp: Effort & Inspection: normal respiratory effort and able to speak in complete sentences Cardio: Rate: regular rate Peripheral pulses: Peripheral pulses 2+ throughout GI: Palpation (GI): Soft to palpation Skin: General skin exam: no rashes or lesions noted Extrem: Other: incision clean dry and intact. Zainab intact. No erythema or effusion. Calf supple nontender. Neurovascularly intact. DS: Data Data Completed and Pending Pending studies at discharge: Pending at discharge 12/07/20 11:27 Surgical [PTH] Routine Labs on day of discharge: Laboratory Results - last 24 hr 12/08/20 12/09/20 08:12 05:41 Hgb 9.5 L Hct 29.3 L Creatinine 1.14 Estim Creat Clear Calc 52.0 Estimated GFR > 60 Discharge Plan Discharge Patient Disposition: Home Health Service Referrals: [facility] [Outside] - 1 Day (PATIENT TO BEDISCHARGED TODAY AND WILL HAVE THE [place] COME OUT THE NEXT Day for home physical theapry and nursing for sc lovenox reinforcement teaching pcp patient to call for follow up posty hospitla discharge orthopedic surgeon follow up per discaharge instructions transportation family ) Tanner Harkins PA-C [Physician Highway Landscape Architect] - 2 Weeks (12/24/20 1:30 [facility] Orthopedic Surgeons Tanner Harkins PA-C) Discharge Medications: New acetaminophen 325 mg Tablet 650 mg PO Q6H 30 Days Qty: 240 RF: 0 oxycodone 5 mg Tablet 10 mg PO Q6H 7 Days Qty: 56 RF: 0 Continued ferrous sulfate 325 mg (65 mg iron) Tablet 325 mg PO DAILY RF: 0 amlodipine 10 mg tablet 1 tab PO DAILY RF: 0 simvastatin 20 mg tablet 1 tab PO BEDTIME RF: 0 omeprazole 20 mg capsule,delayed release(DR/EC) 20 mg PO DAILY Qty: 30 RF: 0 multivitamin Tablet 1 tab PO DAILY RF: 0 Discharge Orders: Discharge Order (Routine); Ordered 12/09/20 Ordered By: Tanner Harkins Activity Restrictions/Additional Instructions: * Physical Therapy for Total knee arthroplasty: gait training, ROM 0-12, quad strength * Limit stair climbing * No showering, no tub bath-keep dressing clean, dry and intact * No driving x6 weeks * Continue Lovenox x 2 weeks * Follow up with [facility] Orthopedics in 2 weeks
--- NOTE | 2020-12-09 08:41 | W.MHC.F2F ---
Service Date Service Date: 12/09/20 Reasons for Services Reason for group home: medication management Reason for physical therapy: home safety and mobility, therapeutic exercises, restore joint function, gait/transfer training and energy conservation Reason for occupational therapy: home safety and mobility, therapeutic exercises, restore joint function, gait/transfer training and energy conservation Overseeing Care: Leora Martinez Homebound: Leaving the home is medically contraindicated at this time without the asist of a device and/or another person due th the listed conditions above and below. Reason homebound: unsteady gait / fall risk, leg weakness, pain with ambulation, poor balance / fall risk and unable to drive Homebound supporting statement: Pt. is considered home bound due to recent surgery. Unable to drive, poor balance, poor gait mechanics. Certification: Based on the above findings, I certify that this patient is confined to the home and needs intermittent group home care, physical therapy and/or speech therapy, or continues to need occupational therapy. The patient is under my care, and I have initiated the establishment of the plan of care. The patient will be followed by a physician who will periodically review the plan of care.
--- NOTE | 2020-12-09 08:43 | MHC.CM.PN ---
nurse case consultant note electronic medical record reviewed along with case discussed with staff nurse , kelsie Lovenox teaching was started yesterday by staff nurse . he will be discharged home today discharge plan home where he resides with his mother and sister with new referral to the [facility] for sc Lovenox reinforcement teaching g and home physical therapy they will be out the next day transportation family pcp patient to call for post hospitla discharge follow up orthopedic surgeon follow up per discharge instructions
[2020-12-09] MEDS: Enoxaparin Sodium 40 MG/0.4 ML SYRINGE SUBCUT (10:58)
== END 2020-12-09 11:10 | disposition home health service (06) ==
LOC: HO.SSS 07:42 → HO.S3 11:42
PROVIDERS: Physician Assistant; PCP Internal Medicine; Visit Provider Orthopaedic Surgery
PROC: (CPT 27447; principal; 2020-12-07 09:50)
DX: M17.12 Unilateral primary osteoarthritis, left knee (principal); I10 Essential (primary) hypertension; D64.9 Anemia, unspecified; Z79.899 Other long term (current) drug therapy; Z20.822 Contact with and (suspected) exposure to COVID-19; Z85.828 Personal history of other malignant neoplasm of skin
CPT/HCPCS: 27447; 36415; 73560; 80048; 82565; 85014; 85018; 85025; 86850; 86900; 86901; 87635; 87640; 87641; 88305; 88311; 93005; 97110; 97116; 97162; 97165; C1776; J0690; J1650; J1885; J2250; J2270; J2405; J3010

== ENCOUNTER → 2020-12-23 14:21 | Outpatient (BNVA) | payer MEDICARE, SELFPAY | PROVIDERS: PCP Internal Medicine; Visit Provider Physician Assistant | DX: Z47.1 Aftercare following joint replacement surgery (principal); Z96.652 Presence of left artificial knee joint | CPT/HCPCS: 99212 ==

== ENCOUNTER → 2021-01-28 08:55 | Outpatient (BNVA) | payer MEDICARE, SELFPAY | PROVIDERS: PCP Internal Medicine; Visit Provider Physician Assistant | DX: Z47.1 Aftercare following joint replacement surgery (principal); Z96.652 Presence of left artificial knee joint | CPT/HCPCS: 99212 ==

== ENCOUNTER 2021-03-10 10:00 | Outpatient (RCR) | payer OTHER, MEDICARE, SELFPAY ==
--- NOTE | 2020-12-28 11:05 | MHC.PT.EP ---
[facility] [place] Office [place] Office [place] Office [address] [phone] F: [phone] F: [phone] F: [phone] F: [phone] Physical Therapy Plan of Care Date of Evaluation: Date of Surgery: 12/07/20 Diagnosis: S/P LEFT TKA W DR VARELA Assessment: 75 YO MALE REF TO PT S/P LEFT TKR 12/07/[address] VARELA. OBJECTIVE FINDINGS: LIMITED ROM Lt KNEE, TIGHT HS Lt > Rt LE, VERT ANT Lt KNEE INCISION HEALING, DECR STRENGTH, AND PAIN IN LEFT KNEE INFLUENCING SABINO (OUT OF PAIN MEDS AT CURRENT). FUNCTIONAL LIMITATIONS INCLUDE: CURRENT ANTALGIC GAIT W CANE, MODIFIED STAIR MGMT, DECR SABINO TO ADLs REQ KNEE FLEX, OVERALL POST-OP LIMITED FUNCT MOB SABINO, AND LEFT KNEE PAIN INFLUENCING SABINO. Pt IS A GOOD PT CANDIDATE TO GUIDE HIM ALONG HIS LEFT TKR POST OP COURSE AND TO MAXIMIZE FUNCT INDEPENDENCE. Frequency and Duration: The patient will be seen 2x WK X 6 WKS Short Term Goals: Pt'S LEFT KNEE PAIN DECR TO 2-3/10 IN 2 WKS Pt ACHIEVE Lt KNEE AROM 0* TO 120* IN 3 WKS Pt DEMON IMPROVED TRANSFERS AND BED MOB TO REDUCE COMPENSATORY UEs USAGE Alf Goals: Pt DEMON INDEP GAIT/ FUNCT MOB W LRAD, RECIP TECHN ON STAIRS IN 5 WKS Pt'S LEFT SCORE INCR BY AT LEAST 8 POINTS IN 5 WKS Pt INDEP W HEP AND STRENGTH PROGRESSIONS / SELF SX MGMT TECHN IN 6 WKS Treatment Plan: Modalities to reduce pain, spasms and effusion. Manual therapy to restore motion and function. Therapeutic exercise to improve strength and flexibility. Neuromuscular re-education for posture and balance. Therapeutic activities to return to functional activities of daily living. Electronically signed by: Sandra EidPT Please sign and return to therapist. Thank you for your referral.
--- NOTE | 2021-03-12 07:22 | MHC.PT.DC ---
[facility] [place] Office [place] Office [address] [phone] F: [phone] F: [phone] F: [phone] F: [phone] Physical Therapy Discharge Report Diagnosis: S/P LEFT TKA W DR VARELA Date of Surgery: 12/07/20 Date of Evaluation: 12/28/20 Date of Discharge: 03/12/21 Treatments to Date: 20 Cancellations to Date: 0 No Shows to Date: 0 Discharge Status: Achieved Goals Improved Function Independent with HEP Discharge Summary: Pt HAS PROGRESSED NICELY S/P LEFT TKR- HE DEMON INDEP GAIT W/O AD, WFL AROM Lt KNEE, INDEP W HEP ADDRESSING STRENGTHENING AND FUNCTIONAL MOBILITY. HIS PAIN HAS BEEN MINIMAL AND HIS SCAR MOBILITY IN LEFT ANT KNEE HAS IMPROVED. HE HAD AN ORTHO F/U 03/11/21 AND IS D/C'D THIS DATE HAVING MET HIS PT GOALS. Electronically signed by: Sandra Eid,PT Please sign and return to therapist. Thank you for your referral.
== END 2021-03-12 07:23 | disposition home or self-care (01) ==
LOC: HO.PT 10:00
PROVIDERS: PCP Internal Medicine; Visit Provider Orthopaedic Surgery
DX: Z96.652 Presence of left artificial knee joint (principal)
CPT/HCPCS: 97110; 97112; 97140; 97161

== ENCOUNTER → 2021-03-11 08:07 | Outpatient (BNVA) | payer MEDICARE, SELFPAY | PROVIDERS: PCP Internal Medicine; Visit Provider Orthopaedic Surgery | DX: Z47.1 Aftercare following joint replacement surgery (principal); Z96.652 Presence of left artificial knee joint | CPT/HCPCS: 99212 ==

== ENCOUNTER 2021-08-31 13:56 | Outpatient (REF) | payer MEDICARE, SELFPAY ==
--- NOTE | ~2021-08-31 | XR_ITS ---
EXAMINATION: XR knee RT 4V CLINICAL INFORMATION: Pain COMPARISON: Right knee 05/04/2018 TECHNIQUE: 4 views of the knee XR/XR knee RT 4V FINDINGS/IMPRESSION: No acute fracture or dislocation. Moderate to severe degenerative changes of the knee worst involving the medial compartment where there is near complete loss of joint space similar to 2018. No joint effusion. Similar genu varum. Soft tissues are unremarkable.
== END 2021-08-31 13:57 | disposition home or self-care (01) ==
LOC: HO.XRAY 13:56
PROVIDERS: PCP Internal Medicine; Visit Provider Internal Medicine
DX: M17.11 Unilateral primary osteoarthritis, right knee (principal); M25.561 Pain in right knee
CPT/HCPCS: 73564

== ENCOUNTER 2021-09-02 08:50 | Outpatient (REF) | payer MEDICARE, SELFPAY ==
--- NOTE | ~2021-09-02 | XR_ITS ---
EXAMINATION: XR STANDING AP KNEES XR KNEE, LEFT CLINICAL INFORMATION: Pain COMPARISON: Radiographs left knee 12/08/2020, standing AP knees 04/08/2020. TECHNIQUE: Standing AP view of both knees is performed. Additional lateral and axial patella views of the left knee are also obtained. FINDINGS: Left: There has been prior total knee arthroplasty. The hardware appears intact. There is no fracture, dislocation, destructive process, or osteolysis. No periostitis. There is likely small suprapatellar effusion. The deep infrapatellar recess is preserved. Axial view patella shows no lateralization or tilting. There is no femoral arterial calcification consistent with M?nckeberg medial calcific sclerosis.? Right: There is again prominent narrowing medial knee joint compartment with secondary genu varus. No visible erosive change. There is some trace chondrocalcinosis lateral meniscus. Bony mineralization is normal. XR/XR knee LT 2V IMPRESSION: Left: -Status post total knee arthroplasty. Hardware intact. No osteolysis. -Probable small suprapatellar effusion. -No lateralization or tilting patella. 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
--- NOTE | ~2021-09-02 | XR_ITS ---
EXAMINATION: XR STANDING AP KNEES XR KNEE, LEFT CLINICAL INFORMATION: Pain COMPARISON: Radiographs left knee 12/08/2020, standing AP knees 04/08/2020. TECHNIQUE: Standing AP view of both knees is performed. Additional lateral and axial patella views of the left knee are also obtained. FINDINGS: Left: There has been prior total knee arthroplasty. The hardware appears intact. There is no fracture, dislocation, destructive process, or osteolysis. No periostitis. There is likely small suprapatellar effusion. The deep infrapatellar recess is preserved. Axial view patella shows no lateralization or tilting. There is no femoral arterial calcification consistent with M?nckeberg medial calcific sclerosis.? Right: There is again prominent narrowing medial knee joint compartment with secondary genu varus. No visible erosive change. There is some trace chondrocalcinosis lateral meniscus. Bony mineralization is normal. XR/XR knee standing BI IMPRESSION: Left: -Status post total knee arthroplasty. Hardware intact. No osteolysis. -Probable small suprapatellar effusion. -No lateralization or tilting patella. 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
== END 2021-09-02 08:51 | disposition home or self-care (01) ==
LOC: HO.HOSX 08:50
PROVIDERS: Visit Provider Orthopaedic Surgery
DX: M17.11 Unilateral primary osteoarthritis, right knee (principal)
CPT/HCPCS: 20610; 73560; 73565; 99212

== ENCOUNTER → 2022-03-17 09:03 | Outpatient (BNVA) | payer MEDICARE, SELFPAY | PROVIDERS: PCP Internal Medicine; Visit Provider Orthopaedic Surgery | DX: M17.11 Unilateral primary osteoarthritis, right knee (principal); M25.561 Pain in right knee | CPT/HCPCS: 20610; 99212; J1100 ==

== ENCOUNTER 2024-01-03 12:26 | Emergency (ER) | payer MEDICARE, SELFPAY ==
[2024-01-03 12:31] VITALS: BP 173/87; PULSE 116; RESP 16; TEMP 37; O2SAT 95; BMI 29.0
--- NOTE | 2024-01-03 12:31 | ED_ITS ---
HPI - General Adult General Chief complaint: Eye Problems Stated complaint: Eye spams- cataract surgery wks ago Time Seen by Provider: 01/03/24 12:39 Source: patient Mode of arrival: ambulatory Limitations: no limitations History of Present Illness ED Provider: Janet Hernandez PA-C HPI narrative: 78 year old male presents with brother to ED with PMH of neuralgia in the right side of the face and cataract surgery bilaterally presents today with intermittent stabbing pains in his right eye that radiates and aggravates his neuralgia and complains of yellow/green/brown goopies in his right eye. States that the new sharp and shooting pain from the eye started about a week ago, but has gotten significantly worse in the last 2-3 days as well as the light irritation starting 2-3 days ago as well. States that pain will cause him to shoot back and grab his eye, causing severe pain for about 1 minute although it feels like an hour . Patient had cataract surgery bilaterally about 2 months ago and states the surgery went well with no complications. Currently take Gabapentin 200mg twice a day for neuropathic pain. Was recently increased from 100mg a month or so ago. Denies chest pain, shortness of breath, headaches, loss of vision, vision changes, double vision, flashers/floaters, history of Shingles. No history of antiviral use or recent antibiotic use. Onset (ago): week(s) (1) Location: eyes Quality: stabbing and sharp Pain Consistency: intermittent (With light) Relieving factors: none Exacerbating factors: other (light) Associated symptoms: denies other symptoms Treatments prior to arrival: other (Tylenol) Related Data Home Medications ?Medication ?Instructions ?Recorded ?Confirmed amlodipine 10 mg tablet 1 tab PO DAILY 06/25/20 11/24/20 simvastatin 20 mg tablet 1 tab PO BEDTIME 06/26/20 11/24/20 multivitamin 1 tab PO DAILY 07/10/20 11/24/20 ferrous sulfate 325 mg (65 mg 325 mg PO DAILY 11/24/20 11/24/20 iron) tablet Previous Rx's ?Medication ?Instructions ?Recorded omeprazole 20 mg capsule,delayed 20 mg PO DAILY #30 caps 06/26/20 release acetaminophen 325 mg tablet 650 mg (2 x 325 mg) PO Q6H 30 days 12/09/20 #240 tabs enoxaparin 40 mg/0.4 mL 40 mg (0.4 mL) subcut Q24H 14 days 12/09/20 subcutaneous syringe #5.6 mL celecoxib 200 mg capsule (Celebrex) 200 mg PO ONCE 30 days #30 caps 12/23/20 oxycodone 5 mg tablet 5 mg PO Q8H pain 7 days #21 tabs 01/13/21 amoxicillin 500 mg tablet 2,000 mg (4 x 500 mg) PO ONCE take 10/19/22 4 tabs by mouth 1 hour prior to dental ppx 1 day #4 tabs amoxicillin 500 mg capsule 2,000 mg (4 x 500 mg) PO ONCE take 11/10/22 one hour prior to dental work #4 caps polymyxin B sulfate 10,000 1 drp ophthalmic (eye) QID 7 days 01/03/24 unit-trimethoprim 1 mg/mL eye drops #10 mL prednisone 20 mg tablet 20 mg PO DAILY 7 days #7 tabs 01/03/24 valacyclovir 1 gram tablet 1,000 mg PO TID 7 days #21 tabs 01/03/24 Allergies Allergy/AdvReac Type Severity Reaction Status Date / Time No Known Allergies Allergy Verified 01/03/24 12:35 Review of Systems 2 Constitutional: Constitutional: Reports no additional constitutional complaints, Denies chills, Denies fever(s) and Denies night sweats Eyes: Eyes: Denies blurry vision, Denies change in vision, Denies diplopia, Reports eye discharge, Reports irritation, Reports itchy eyes, Denies loss of vision, Denies eye pain and Reports photophobia ENT: Denies dizziness Cardiovascular: Cardiovascular: Reports no additional cardiovascular complaints, Denies chest pain, Denies lightheadedness, Denies Loss of Consciousness and Denies dyspnea Respiratory: Respiratory: Reports no additional respiratory complaints and Denies dyspnea Gastrointestinal: Gastrointestinal: Reports no additional gastrointestinal complaints, Denies abdominal pain, Denies melena, Denies hematochezia, Denies change in bowel habits and Denies change in stool character Genitourinary: Genitourinary: Reports no additional male genitourinary complaints, Denies hematuria, Denies oliguria, Denies difficulty urinating, Denies dysuria, Denies urinary frequency, Denies urinary hesitancy, Denies urinary incontinence and Denies urinary urgency Musculoskeletal: Musculoskeletal: Reports no additional musculoskeletal complaints, Denies numbness and Reports tingling Neurologic: Denies dizziness, Denies loss of vision, Denies numbness, Reports tingling and Reports paresthesias (right face shooting to back of head, present for 2 years or more) Psychiatric: Psychiatric: Reports no additional psychiatric complaints Endocrine: Endocrine: Reports no additional endocrine complaints Hematologic/Lymphatic: Hematologic/Lymphatic: Reports no additional hematologic/lymphatic complaints Allergic/Immunologic: Allergic/Immunologic: Reports no additional allergic/immunologic complaints and Reports itchy eyes PMFSH Past Medical History Attestation statement: The following information was validated with the patient. 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 other at home: Yes (mother-has siblings to help) Do you presently have visiting nurse or other home services: No Alcohol intake: former Patient Tobacco Use Status: Never used Tobacco Advance Directives: No Advance Directives Information Provided: Yes service: Yes Current occupational status: retired Current occupation: Right Handed Physical Exam ED Vital Signs: Vital Signs - 24 hr 01/03/24 12:31 01/03/24 14:21 01/03/24 14:22 Temperature 98.6 F 98.7 F 98.7 F Pulse Rate 116 H 95 95 Respiratory Rate 16 18 18 Blood Pressure 173/87 H 132/82 132/82 Pulse Oximetry 95 95 95 Oxygen Delivery Method Room Air Room Air Room Air BMI result Body Mass Index 29.0 Const General: cooperative, no acute distress, alert and awake Nutritional Appearance: well nourished Orientation/consciousness: patient oriented x3 Limitations: no limitations HENMT Head: Yes normal to inspection and Yes atraumatic Ears: hearing grossly normal bilaterally and external ears normal General nose exam: Normal external nose present, no nasal discharge noted and no epistaxis Face and sinus: Yes normal facial exam, No abrasion and No laceration Mouth: Normal oral and palatal mucosa present, no drooling and no muffled voice Eyes Other: Right eye is erythematous and is watering, extremely sensitive to light and causes severe shooting neuralgia pain on right side of face. There is a yellow/brown discharge from the eye and dried discharge on the medial aspect of the right eyelid and skin. Visual Bruno: normal visual bruno by confrontation Alignment and Position: alignment normal and position normal Eyelids: Yes eyelid abnormality (Slight swelling noted on right lower eyelid) Conjunctivae: conjunctivae normal Corneas: corneas normal Pupils: Equal, round and reactive pupils present EOM: EOMs intact bilaterally Direct Ophthalmoscopy: photophobia Neck Neck: Yes normal visual inspection, Yes full ROM and Yes no lymphadenopathy Chest Chest palpation & inspection: normal inspection of the chest Resp Effort & Inspection: normal respiratory effort and able to speak in complete sentences GI Inspection: Yes normal to inspection Neuro General: patient oriented x3 and moves all extremities Cranial nerves: Yes Equal, round and reactive pupils present Cognition (Neuro): normal cognition Extrem General: Yes normal to inspection, Yes full ROM and Yes capillary refill normal Psych Appearance: grossly normal Mental Status: mental status grossly normal Affect: normal affect Attitude: cooperative Thought process: Normal thought process present Thought content: Normal thought content present Insight: Good insight present (Psych) Course Course Course Narrative: This is an RME done by DULCE Marquez: Additional HPI, ROS, PE not included below will be deferred to primary provider. 78 yoa M, presents with intermittent stabbing pain in the right eye, photo sensitivity and described it as a lighting strike , also endorses bilateral yellowish eye discharge, redness of the eyes that has been worsening of the eye s/p cataract bilateral surgery [address] Edwards. Denies blurry vision, headache. Hes tried eye drops, acetaminophen. Appearance: Alert.? Oriented X3.? No acute cardiopulmonary distress distress.? Head: Normocephalic, atraumatic, no step-offs or deformities ENT: Pharynx normal.??External ears normal, TMs normal bilaterally and EAC's normal. No pain with manipulation of external ears bilaterally. No mastoid tenderness, Conjunctiva injection bilaterally, right ocular discharge. Neck: Normal inspection.? Neck supple.? CVS: Pulses normal.? Respiratory: No respiratory distress.? Abdomen: Soft and nontender.? Skin: ? Normal skin color. Extremities: 5/5 strength to bilateral upper and lower extremities Back: No midline tenderness, no C-spine tenderness, full range of motion, No CVA tenderness bilaterally Neuro: Oriented X 3.? No motor deficit.? No sensory deficit. Medical Decision Making Medical Decision Making [facility] Narrative: Patient is a 78 year old assigned male at with a history of neuralgia, arthritis, and bilateral cataract surgery presenting to the emergency department today with worsening right sided neuralgia. Patient's physical exam was as noted in the physical exam portion of this note. Patient's blood work was unremarkable. I discussed this patient with my attending physician, Dr. Sanchez, who agreed with my plan of treating the patient for bacterial conjunctivitis, neuralgia, and possible developing herpes zoster. I explained my physical exam findings as well as all test results to the patient. I answered all questions asked by the patient. I stressed the importance of the patient taking his medication as directed (either prescribed or as the over the counter packaging recommends). I stressed the importance of the patient following up with his primary care provider and his greenhouse specialist which he is scheduled to do on 01/08. I stressed the importance of the patient returning to the emergency department immediately if his symptoms were to worsen or if he were to develop any dizziness, shortness of breath, difficulty breathing, chest pain, blurry vision, loss of vision, nausea, vomiting, abdominal pain, fever, chills, back pain, or any other complaints. Patient verbalized agreement and understanding with this treatment plan and discharge. Differential Diagnosis Differential Diagnoses: The differential diagnosis associated with the presentation includes Bacterial conjunctivitis Herpes zoster Neuralgia Admission/Observation Consideration of admission/observation: Escalation of care including admission/observation considered Patient would have been admitted to the hospital had his work up had any findings where hospital admission was appropriate and his clinical presentation warranted hospital admission. Lab Data [facility] Lab Attestation statement: I reviewed the patient's lab results. My interpretation of these results are in the [facility] Rationale portion of this note. 01/03/24 13:23 01/03/24 13:23 Labs: Lab Results 01/03/24 Range/Units 13:23 WBC 10.4 (4.8-10.8) X10*3/uL RBC 4.91 (4.60-5.80) X10*6/uL Hgb 14.3 (14.0-18.0) g/dl Hct 42.2 (42.0-52.0) % MCV 85.9 (80.0-98.0) fL MCH 29.1 (27.0-33.0) pg MCHC 33.9 (31.0-36.0) g/dl RDW 12.6 (11.0-16.0) % Plt Count 232 (160-400) X10*3/uL MPV 11.3 (9.4-12.4) fL Immature Gran % (Auto) 0.4 (0.0-0.4) % Neut % (Auto) 82.8 H (45-73) % Lymph % (Auto) 10.2 L (20-40) % Ness % (Auto) 5.3 (2-11) % Eos % (Auto) 0.7 (0-4) % Baso % (Auto) 0.6 (0-2) % Lymph # (Auto) 1.1 L (1.2-4.9) X10*3/uL Ness # (Auto) 0.6 (0.1-1.2) X10*3/uL Eos # (Auto) 0.1 (0.0-0.4) X10*3/uL Baso # (Auto) 0.1 (0.0-0.2) X10*3/uL Abs Immat Gran (auto) 0.04 H (0.00-0.03) X10*3/uL Absolute Neuts (auto) 8.6 H (2.0-8.3) x10*3/uL Absolute Nucleated RBC 0.000 (0.0-0.012) X10*3/uL Nucleated RBC % (auto) 0.0 (0.0-0.2) /100WBC ESR 7 (0-15) MM/HR Sodium 141 (135-145) mmol/L Potassium 3.9 (3.3-5.1) mmol/L Chloride 106 (96-108) mmol/L Carbon Dioxide 23 (22-29) mmol/L Anion Gap 16 (12-20) BUN 16 (9-16) mg/dL Creatinine 1.03 (0.5-1.4) mg/dL Estim Creat Clear Calc 61.2 Estimated GFR > 60 Random Glucose 117 H (60-115) mg/dL Calcium 9.5 (8.4-10.2) mg/dL Magnesium 2.0 (1.6-2.6) mg/dL Total Bilirubin 1.2 H (0.0-1.0) mg/dL AST 24 (5-37) U/L ALT 21 (0-40) U/L Alkaline Phosphatase 64 (39-117) U/L C-Reactive Protein 0.24 (< or = 0.50) mg/dL Total Protein 7.5 (6.5-8.0) g/dL Albumin 4.5 (3.5-5.0) g/dL Prescription Management I considered prescription management with: Antiviral (patient prescribed an antiviral to cover for possible zoster) and Antibiotic (patient prescribed an antibiotic to cover for conjunctivitis) Discharge Plan Discharge Clinical Impression: Neuralgia Patient Disposition: Home, Self-Care Instructions: Paresthesia (ED) Additional Instructions: Your lab work is reassuring. INCREASE your gabapentin to 300mg twice a day. It is possible you are developing shingles - so we I have prescribed medication to address this. I have also given you an eye drop to address a possible eye infection. STOP using the over the counter eye drops you were given. Follow up with your primary care provider and your greenhouse specialist. Return to the emergency department immediately if your symptoms worsen or if you develop any dizziness, shortness of breath, difficulty breathing, chest pain, blurry vision, loss of vision, nausea, vomiting, abdominal pain, fever, chills, back pain, or any other complaints. Prescriptions: New valacyclovir 1 gram tablet 1,000 mg PO TID 7 Days Qty: 21 0RF prednisone 20 mg tablet 20 mg PO DAILY 7 Days Qty: 7 0RF polymyxin B sulf-trimethoprim 10,000 unit- 1 mg/mL drops 1 drp ophthalmic (eye) QID 7 Days Qty: 10 0RF No Action oxycodone 5 mg tablet 5 mg PO Q8H 7 Days Qty: 21 0RF amoxicillin 500 mg tablet 2,000 mg PO ONCE 1 Days Qty: 4 0RF amoxicillin 500 mg capsule 2,000 mg PO ONCE Qty: 4 0RF Rx Instructions: take one hour prior to dental work ferrous sulfate 325 mg (65 mg iron) Tablet 325 mg PO DAILY acetaminophen 325 mg Tablet 650 mg PO Q6H 30 Days Qty: 240 0RF enoxaparin 40 mg/0.4 mL Syringe 40 mg subcut Q24H 14 Days Qty: 5.6 0RF amlodipine 10 mg tablet 1 tab PO DAILY simvastatin 20 mg tablet 1 tab PO BEDTIME omeprazole 20 mg capsule,delayed release(DR/EC) 20 mg PO DAILY Qty: 30 0RF multivitamin Tablet 1 tab PO DAILY celecoxib [Celebrex] 200 mg capsule 200 mg PO ONCE 30 Days Qty: 30 3RF Referrals: Henry Young MD [Primary Care Provider] - Interventions: ED Discharge Assessment Last Done: 01/03/24 14:22 Discharge Date/Time: 01/03/24 14:23 Print Language: Thai
[2024-01-03 13:27] LABS: MANUAL DIFF FLAG NO
[2024-01-03 13:46] LABS: Alanine Aminotransferase 21 U/L (0-40); Albumin Level 4.5 g/dL (3.5-5.0); Alkaline Phosphatase 64 U/L (39-117); Anion Gap 16 (12-20); Aspartate Amino Transferase 24 U/L (5-37); Bilirubin Total 1.2 mg/dL (0.0-1.0); Blood Urea Nitrogen 16 mg/dL (9-16); C Reactive Protein 0.24 mg/dL (< or = 0.50); Calcium 9.5 mg/dL (8.4-10.2); Carbon Dioxide 23 mmol/L (22-29); Chloride 106 mmol/L (96-108); Creatinine Clr Calc Pharmacy 61.2; Estimated Glomerular Filt Rate > 60; Glucose Random 117 mg/dL (60-115); Potassium 3.9 mmol/L (3.3-5.1); Sodium 141 mmol/L (135-145); Total Protein 7.5 g/dL (6.5-8.0)
[2024-01-03 13:50] LABS: Basophils Absolute Auto 0.1 X10*3/uL (0.0-0.2); Basophils Percent Auto 0.6 % (0-2); Eosinophils Absolute Auto 0.1 X10*3/uL (0.0-0.4); Eosinophils Percent Auto 0.7 % (0-4); Hematocrit 42.2 % (42.0-52.0); Hemoglobin 14.3 g/dl (14.0-18.0); Imm Gran Abs Auto 0.04 X10*3/uL (0.00-0.03); Imm Gran Pct Auto 0.4 % (0.0-0.4); Lymphocytes Absolute Auto 1.1 X10*3/uL (1.2-4.9); Lymphocytes Percent Auto 10.2 % (20-40); Mean Corpuscular HGB Conc 33.9 g/dl (31.0-36.0); Mean Corpuscular Hemoglobin 29.1 pg (27.0-33.0); Mean Corpuscular Volume 85.9 fL (80.0-98.0); Mean Platelet Volume 11.3 fL (9.4-12.4); Monocytes Absolute Auto 0.6 X10*3/uL (0.1-1.2); Monocytes Percent Auto 5.3 % (2-11); Neutrophils Absolute Auto 8.6 x10*3/uL (2.0-8.3); Neutrophils Percent Auto 82.8 % (45-73); Platelet Count 232 X10*3/uL (160-400); Red Blood Count 4.91 X10*6/uL (4.60-5.80); Red Cell Distribution Width 12.6 % (11.0-16.0); White Blood Count 10.4 X10*3/uL (4.8-10.8)
[2024-01-03 14:21] VITALS: BP 132/82; PULSE 95; RESP 18; TEMP 37.1; O2SAT 95
[2024-01-03 14:22] VITALS: BP 132/82; PULSE 95; RESP 18; TEMP 37.1; O2SAT 95
[2024-01-03 14:28] LABS: Erythrocyte Sedimentation Rate 7 MM/HR (0-15)
== END 2024-01-03 14:23 | disposition home or self-care (01) ==
PROVIDERS: Physician Assistant Medical; Emergency Provider Emergency Medicine; PCP Internal Medicine
DX: M79.2 Neuralgia and neuritis, unspecified (principal); H51.8 Other specified disorders of binocular movement; H57.11 Ocular pain, right eye; Z79.899 Other long term (current) drug therapy
CPT/HCPCS: 36415; 80053; 83735; 85025; 85652; 86140; 99282; 99283

== ENCOUNTER 2024-02-02 09:28 | Emergency (ER) | payer MEDICARE, SELFPAY ==
[2024-02-02 09:47] VITALS: BP 140/78; PULSE 96; RESP 16; TEMP 36.7; O2SAT 98; BMI 27.4
[2024-02-02 10:15] VITALS: BP 145/81; PULSE 88; RESP 16; O2SAT 97
--- NOTE | 2024-02-02 10:29 | ED.EYEPROB ---
HPI - Eye Problem General Chief complaint: Eye Problems Stated complaint: Eye issues Time Seen by Provider: 02/02/24 10:17 Source: patient Mode of arrival: ambulatory Limitations: no limitations History of Present Illness ED Provider: Sendy Bolden PA-C HPI Narrative: 78-year-old male with history of trigeminal neuralgia, HTN, HLD, GERD, history of left total knee arthroplasty, hx bilateral cataract surgery who presents to the ER for evaluation of worsening right-sided facial pain and photosensitivity & severe pain in his right eye. He states he has been on gabapentin, increased to 300 mg BID a month ago with no relief in pain. He states he has severe pain shocks that last 45 seconds in his right forehead, right eye and to the right side of his nose. It is worse with any movement, palpation, teeth brushing, sneezing. He is unable to have any light in his right eye due to severe pain and he has been wearing and eye patch. No eye drainage. He saw a principal bioinformatics specialist recently and was told he needs and MRI for further evaluation. He was told his eye was fine. He has not seen his PCP for this since it started a couple of months ago. Has not seen a neurologist. He denies any weakness or numbness in the face or extremities. No tingling sensation, just pain. MD chief complaint: eye pain Onset (ago): month(s) Onset description: sudden Duration: intermittent Location: right eye Eye Symptoms: pain Mechanism: none Severity: severe Severity scale (1-10): 10 If Pain, Quality: sharp and other (electrical like) Context: history of glaucoma Associated symptoms: headache and other (nasal congestion) Treatments Prior to Arrival: other (gabapentin) Related Data Home Medications ?Medication ?Instructions ?Recorded ?Confirmed amlodipine 10 mg tablet 1 tab PO DAILY 06/25/20 11/24/20 simvastatin 20 mg tablet 1 tab PO BEDTIME 06/26/20 11/24/20 multivitamin 1 tab PO DAILY 07/10/20 11/24/20 ferrous sulfate 325 mg (65 mg 325 mg PO DAILY 11/24/20 11/24/20 iron) tablet Previous Rx's ?Medication ?Instructions ?Recorded omeprazole 20 mg capsule,delayed 20 mg PO DAILY #30 caps 06/26/20 release acetaminophen 325 mg tablet 650 mg (2 x 325 mg) PO Q6H 30 days 12/09/20 #240 tabs enoxaparin 40 mg/0.4 mL 40 mg (0.4 mL) subcut Q24H 14 days 12/09/20 subcutaneous syringe #5.6 mL celecoxib 200 mg capsule (Celebrex) 200 mg PO ONCE 30 days #30 caps 12/23/20 oxycodone 5 mg tablet 5 mg PO Q8H pain 7 days #21 tabs 01/13/21 amoxicillin 500 mg tablet 2,000 mg (4 x 500 mg) PO ONCE take 10/19/22 4 tabs by mouth 1 hour prior to dental ppx 1 day #4 tabs amoxicillin 500 mg capsule 2,000 mg (4 x 500 mg) PO ONCE take 11/10/22 one hour prior to dental work #4 caps polymyxin B sulfate 10,000 1 drp ophthalmic (eye) QID 7 days 01/03/24 unit-trimethoprim 1 mg/mL eye drops #10 mL prednisone 20 mg tablet 20 mg PO DAILY 7 days #7 tabs 01/03/24 valacyclovir 1 gram tablet 1,000 mg PO TID 7 days #21 tabs 01/03/24 carbamazepine 100 mg 100 mg PO BID #60 tabs 02/02/24 tablet,extended release,12 hr (Tegretol XR) Allergies Allergy/AdvReac Type Severity Reaction Status Date / Time No Known Allergies Allergy Verified 02/02/24 09:52 Review of Systems Review of Systems: Yes all other systems are reviewed and are negative [facility] Past Medical History Medical History COVID-19 vaccine administered Cancer Arthritis History of diverticulitis Anemia Hx of sciatica Hx of basal cell carcinoma GERD (gastroesophageal reflux disease) Diverticulosis Elevated cholesterol HTN (hypertension) Primary osteoarthritis of left knee Osteoarthritis of both knees Surgical History Hx of colonoscopy Hx of spinal surgery Hx of arthroscopy of left knee Family History Family History Mother Breast cancer Social History Social History Are you a primary client care consultant to a significant other at home: Yes (mother-has siblings to help) Do you presently have visiting nurse or other home services: No Alcohol intake: former Patient Tobacco Use Status: Never used Tobacco Smoked in Last 30 Days: No Use of substances other than those prescribed or required for medical reasons: No Advance Directives: No Advance Directives Information Provided: No service: Yes Current occupational status: retired Current occupation: Right Handed Physical Exam Vital Signs: Vital Signs: Last Vital Signs Temp 98.0 F 02/02/24 13:24 Pulse 98 02/02/24 13:24 Resp 18 02/02/24 13:24 BP 124/83 02/02/24 13:24 Pulse Ox 98 02/02/24 13:24 O2 Del Method Room Air 02/02/24 13:24 BMI result Body Mass Index 27.4 Appearance: Alert. Oriented X3. No acute distress. Head: normocephalic, atraumatic. tenderness of the right forehead and right lateral eye. no rash. Eyes: Pupils equal, round and reactive to light. Mild injection of the right sclera and conjunctiva. EOMI. ENT: Pharynx normal. No tonsillar swelling or exudate. Normal TMs bilaterally. Neck: Normal inspection. Neck supple. CVS: Normal heart rate and rhythm. Pulses normal. Respiratory: No respiratory distress. Breath sounds normal. Abdomen: Soft and nontender. +BS x4 Skin: Skin warm and dry. Normal skin color. Normal skin turgor. No rashes. Extremities: No lower extremity edema. No joint swelling. Neuro/psych: Oriented X 3. No motor deficit. No sensory deficit. CN II-XII intact. Normal speech and cognition. Medications Administered Discontinued Medications Generic Name Dose Route Start Last Admin Trade Name Freq PRN Reason Stop Dose Admin Carbamazepine 100 mg 02/02/24 10:49 02/02/24 11:05 Carbamazepine 100 Mg Tab.Chew PO 02/02/24 10:50 100 mg ONCE ONE Administration Medical Decision Making Medical Decision Making MDM Narrative: 78-year-old male with recently diagnosed trigeminal neuralgia the ER for evaluation of recurring episodes of shock-like pain in the right side of his face along with significant right-sided photophobia. No eye pain at rest. No vision changes. Seen by an principal bioinformatics specialist told him need an MRI. On arrival to the ER he is not neurologically intact, no acute vision changes. He has significant photophobia in the right eye and is wearing an eye patch. This has been progressing over several weeks to months. He certainly has typical criteria of trigeminal neuralgia, not improving with gabapentin. Will plan to start him on carbamazepine 100 mg b.i.d. plan was for MRI/MRA today - d/w Dr. Sanchez. however this unable to be performed today. Administration helped to arrange the study to be done on Monday at 530pm and results to be sent to Dr. Young. Patient is agreeable with plan. Refer to pain management neurology as well. Stable for DC home Differential Diagnosis Differential Diagnoses: The differential diagnosis associated with the presentation includes Trigeminal neuralgia, demyelinating process, brain tumor, herpes zoster, low clinical suspicion for acute angle glaucoma Admission/Observation Consideration of admission/observation: Escalation of care including admission/observation considered Lab Data MDM Lab Attestation statement: I reviewed the patient's lab results. mild thrombocytopenia 02/02/24 11:23 02/02/24 11:23 Labs: Lab Results 02/02/24 02/02/24 Range/Units 11:23 11:44 WBC 10.1 (4.8-10.8) X10*3/uL RBC 4.86 (4.60-5.80) X10*6/uL Hgb 14.6 (14.0-18.0) g/dl Hct 42.2 (42.0-52.0) % MCV 86.8 (80.0-98.0) fL MCH 30.0 (27.0-33.0) pg MCHC 34.6 (31.0-36.0) g/dl RDW 13.2 (11.0-16.0) % Plt Count 159 L D (160-400) X10*3/uL MPV 11.4 (9.4-12.4) fL Immature Gran % (Auto) 0.3 (0.0-0.4) % Neut % (Auto) 72.7 (45-73) % Lymph % (Auto) 14.0 L (20-40) % [place] % (Auto) 7.8 (2-11) % Eos % (Auto) 4.5 H (0-4) % Baso % (Auto) 0.7 (0-2) % Lymph # (Auto) 1.4 (1.2-4.9) X10*3/uL [place] # (Auto) 0.8 (0.1-1.2) X10*3/uL Eos # (Auto) 0.5 H (0.0-0.4) X10*3/uL Baso # (Auto) 0.1 (0.0-0.2) X10*3/uL Abs Immat Gran (auto) 0.03 (0.00-0.03) X10*3/uL Absolute Neuts (auto) 7.3 (2.0-8.3) x10*3/uL Absolute Nucleated RBC 0.000 (0.0-0.012) X10*3/uL Nucleated RBC % (auto) 0.0 (0.0-0.2) /100WBC ESR 2 (0-15) MM/HR Sodium 142 (135-145) mmol/L Potassium 4.1 (3.3-5.1) mmol/L Chloride 109 H (96-108) mmol/L Carbon Dioxide 25 (22-29) mmol/L Anion Gap 12 (12-20) BUN 11 (9-16) mg/dL Creatinine 0.97 (0.5-1.4) mg/dL Estim Creat Clear Calc 63.3 Estimated GFR > 60 Random Glucose 107 (60-115) mg/dL Calcium 9.4 (8.4-10.2) mg/dL Magnesium 2.3 (1.6-2.6) mg/dL Total Bilirubin 1.0 (0.0-1.0) mg/dL Direct Bilirubin 0.2 (0.0-0.5) mg/dL AST 26 (5-37) U/L ALT 35 (0-40) U/L Alkaline Phosphatase 62 (39-117) U/L Total Protein 6.6 (6.5-8.0) g/dL Albumin 3.9 (3.5-5.0) g/dL Independent Historian Clinical information obtained from an independent historian. History obtained from or confirmed by: Friend External Record Review External record reviewed: Outpatient record and Prior outpatient labs Prescription Management I considered prescription management with: Pain Medication Discharge Plan Discharge Clinical Impression: Right trigeminal neuralgia Patient Disposition: Home, Self-Care Instructions: Trigeminal Neuralgia (ED) Additional Instructions: report to outpatient radiology on Monday at 5:15pm take the prescribed medication as directed - continue your gabapentin as previously prescribed follow up with Dr. Young, Pain Management and Neurology - call for appointments If you develop new or worsening symptoms call 911 or come back to the ER for further evaluation. Prescriptions: New carbamazepine [Tegretol XR] 100 mg tablet extended release 12 hr 100 mg PO BID Qty: 60 0RF No Action oxycodone 5 mg tablet 5 mg PO Q8H 7 Days Qty: 21 0RF amoxicillin 500 mg tablet 2,000 mg PO ONCE 1 Days Qty: 4 0RF amoxicillin 500 mg capsule 2,000 mg PO ONCE Qty: 4 0RF Rx Instructions: take one hour prior to dental work ferrous sulfate 325 mg (65 mg iron) Tablet 325 mg PO DAILY acetaminophen 325 mg Tablet 650 mg PO Q6H 30 Days Qty: 240 0RF enoxaparin 40 mg/0.4 mL Syringe 40 mg subcut Q24H 14 Days Qty: 5.6 0RF amlodipine 10 mg tablet 1 tab PO DAILY simvastatin 20 mg tablet 1 tab PO BEDTIME omeprazole 20 mg capsule,delayed release(DR/EC) 20 mg PO DAILY Qty: 30 0RF multivitamin Tablet 1 tab PO DAILY valacyclovir 1 gram tablet 1,000 mg PO TID 7 Days Qty: 21 0RF prednisone 20 mg tablet 20 mg PO DAILY 7 Days Qty: 7 0RF polymyxin B sulf-trimethoprim 10,000 unit- 1 mg/mL drops 1 drp ophthalmic (eye) QID 7 Days Qty: 10 0RF celecoxib [Celebrex] 200 mg capsule 200 mg PO ONCE 30 Days Qty: 30 3RF Interventions: ED Discharge Assessment Last Done: 02/02/24 13:24 Discharge Date/Time: 02/02/24 13:26 Print Language: Khmer
[2024-02-02] MEDS: carBAMazepine 100 MG TAB.CHEW PO (11:05)
[2024-02-02 11:28] LABS: MANUAL DIFF FLAG NO
[2024-02-02 11:30] LABS: Basophils Absolute Auto 0.1 X10*3/uL (0.0-0.2); Basophils Percent Auto 0.7 % (0-2); Eosinophils Absolute Auto 0.5 X10*3/uL (0.0-0.4); Eosinophils Percent Auto 4.5 % (0-4); Hematocrit 42.2 % (42.0-52.0); Hemoglobin 14.6 g/dl (14.0-18.0); Imm Gran Abs Auto 0.03 X10*3/uL (0.00-0.03); Imm Gran Pct Auto 0.3 % (0.0-0.4); Lymphocytes Absolute Auto 1.4 X10*3/uL (1.2-4.9); Mean Corpuscular HGB Conc 34.6 g/dl (31.0-36.0); Mean Corpuscular Volume 86.8 fL (80.0-98.0); Mean Platelet Volume 11.4 fL (9.4-12.4); Monocytes Absolute Auto 0.8 X10*3/uL (0.1-1.2); Monocytes Percent Auto 7.8 % (2-11); Neutrophils Absolute Auto 7.3 x10*3/uL (2.0-8.3); Neutrophils Percent Auto 72.7 % (45-73); Platelet Count 159 X10*3/uL (160-400); Red Blood Count 4.86 X10*6/uL (4.60-5.80); Red Cell Distribution Width 13.2 % (11.0-16.0); White Blood Count 10.1 X10*3/uL (4.8-10.8)
[2024-02-02 11:50] LABS: Alanine Aminotransferase 35 U/L (0-40); Albumin Level 3.9 g/dL (3.5-5.0); Alkaline Phosphatase 62 U/L (39-117); Anion Gap 12 (12-20); Aspartate Amino Transferase 26 U/L (5-37); Bilirubin Direct 0.2 mg/dL (0.0-0.5); Blood Urea Nitrogen 11 mg/dL (9-16); Calcium 9.4 mg/dL (8.4-10.2); Carbon Dioxide 25 mmol/L (22-29); Chloride 109 mmol/L (96-108); Creatinine Clr Calc Pharmacy 63.3; Estimated Glomerular Filt Rate > 60; Glucose Random 107 mg/dL (60-115); Magnesium 2.3 mg/dL (1.6-2.6); Potassium 4.1 mmol/L (3.3-5.1); Sodium 142 mmol/L (135-145); Total Protein 6.6 g/dL (6.5-8.0)
[2024-02-02 12:33] LABS: Erythrocyte Sedimentation Rate 2 MM/HR (0-15)
[2024-02-02 13:24] VITALS: BP 124/83; PULSE 98; RESP 18; TEMP 36.7; O2SAT 98
== END 2024-02-02 13:26 | disposition home or self-care (01) ==
PROVIDERS: Physician Assistant; Emergency Provider Emergency Medicine; PCP Internal Medicine
DX: G50.0 Trigeminal neuralgia (principal); H57.11 Ocular pain, right eye; D69.6 Thrombocytopenia, unspecified; I10 Essential (primary) hypertension; E78.5 Hyperlipidemia, unspecified; Z79.02 Long term (current) use of antithrombotics/antiplatelets; Z79.899 Other long term (current) drug therapy
CPT/HCPCS: 36415; 80048; 80076; 83735; 85025; 85652; 99283; 99284

== ENCOUNTER 2024-02-05 17:26 | Outpatient (REF) | payer MEDICARE, SELFPAY ==
--- NOTE | ~2024-02-05 | MR_ITS ---
EXAMINATION: MR BRAIN WITHOUT AND WITH CONTRAST CLINICAL INFORMATION: Severe right-sided facial and eye pain. COMPARISON: None available. TECHNIQUE: MRI of the brain was obtained using routine sequences without and following the administration of 7.5 mL of Gadavist intravenous contrast. FINDINGS: No focal restricted diffusion is demonstrated to suggest acute or subacute cerebral ischemia. No evidence of acute or chronic hemorrhagic products on heme-sensitive imaging. Scattered periventricular and deep white matter T2 FLAIR hyperintensities consistent with mild underlying microangiopathy. Proportional prominence of the ventricles and sulcal spaces without evidence of obstructive hydrocephalus. No abnormal mass effect. No midline shift. Normal appearance of the optic chiasm. Normal appearance of the pituitary gland and infundibulum. Normal appearance of the cavernous sinuses without abnormal filling defects order contours. No demonstrated abnormalities of the intracranial internal carotid or anterior cerebral arteries. Normal arterial and venous vascular flow voids are present. The demonstrated significant retrobulbar or edema or enhancement. Bilateral lens extractions. Otherwise, no demonstrated abnormalities of the globes. Normal appearance of the lacrimal glands. No orbital fluid collections. No abnormalities of the orbital apices. Normal appearance of Meckel's caves. Normal positioning of the cerebellar tonsils. Normal appearance of the internal auditory canals. Normal appearance of the labyrinthine structures without loss of T2 signal or abnormal enhancement. Normal arterial and venous vascular flow voids are present. No abnormal contrast enhancement. Normal, homogeneous marrow signal. Mild mucosal thickening of the paranasal sinuses. No signal abnormalities within the mastoids. Bilateral lens extractions. MR/MR head/brain wo/w con IMPRESSION: 1. No acute intracranial abnormalities. No abnormal intracranial enhancement. 2. Mild underlying microangiopathy and generalized cerebral volume loss. 3. No additional MRI abnormalities to explain the patient's symptoms. Electronically signed by: Nicola Kilpatrick DO 02/05/2024 11:57 PM EDT
[2024-02-05] MEDS: gadobutroL 7.5 ML VIAL IVPUSH (18:12)
== END 2024-02-05 17:27 | disposition home or self-care (01) ==
LOC: HO.MRI 17:26
PROVIDERS: PCP Internal Medicine; Visit Provider Physician Assistant
DX: G50.1 Atypical facial pain (principal)
CPT/HCPCS: 70553; A9585

== ENCOUNTER 2024-12-11 08:51 | Outpatient (AMB) | payer MEDICARE, SELFPAY ==
--- OUTSIDE RECORDS SUMMARY | 2024-12-05 23:59 | XMS_ITS | Continuity of Care Document ---
Author Organization [facility] Address [address] [place] [address] [place], [address] [place] [address]- Care Team Providers Care Washer Operator Name Role Phone Darline CASTRO, Morgan Gaitan Primary Care Physician Encounter [facility] Date(s): 11/05/24 - 12/05/24 [facility] [address] [place] [address] Drive [address] [place] [address]- Encounter Type: Triage Allergies, Adverse Reactions, Alerts No Known Medication Allergies Medications amLODIPine 10 mg oral tablet 1 tablet = 10 mg, By Mouth, Daily in AM, 0 Refills, Maintenance, 11/21/24 2:12:00 PM EDT, Partial fill upon patient request if the prescription is for a schedule II opioid drug. Start Date: 11/21/24 Status: Ordered Repeat number: 1 carBAMazepine 200 mg oral tablet 400 mg, 2, tablet, By Mouth, 2 times a day, Refills 0, Maintenance, 11/21/24 2:12:00 PM EDT, Partial fill upon patient request if the prescription is for a schedule II opioid drug. Start Date: 11/21/24 Status: Ordered Repeat number: 1 losartan 50 mg oral tablet 1 tablet = 50 mg, By Mouth, Daily in AM, 0 Refills, Maintenance, 11/21/24 2:12:00 PM EDT, Partial fill upon patient request if the prescription is for a schedule II opioid drug. Start Date: 11/21/24 Status: Ordered Repeat number: 1 omeprazole 20 mg oral enteric coated capsule 1 capsule = 20 mg, By Mouth, Daily in AM, 0 Refills, Maintenance, 11/21/24 2:12:00 PM EDT, Partial fill upon patient request if the prescription is for a schedule II opioid drug. Start Date: 11/21/24 Status: Ordered Repeat number: 1 simvastatin 20 mg oral tablet 20 mg, 1, tablet, By Mouth, Daily in AM, Refills 0, Maintenance, 11/21/24 2:12:00 PM EDT, Partial fill upon patient request if the prescription is for a schedule II opioid drug. Start Date: 11/21/24 Status: Ordered Repeat number: 1 Social History Social History Type Response Smoking Status Never (less than 100 in lifetime) entered on: 11/21/24 Sex Sex Representation Male (finding) Patient Care team information Care Team Personnel Name: Nisha Greco RN Position: [facility] RN Member Role: Primary Care Nurse Name: Mali De La Vega RN Position: S RN Member Role: Primary Care Nurse Name: Savita Schuster RN Position: S RN Member Role: Primary Care Nurse Name: Morgan Gregorio MD Position: Reference Physician Member Role: PCP Address: [address] [place] [address] Telecom: Care Team Related Persons Name: ADRIANA PRIEST Insurance Providers Guarantor name: KOLE Health Plan Information #: 1 Payer: MEDICARE A INPT Payer Identifier: KOLE Member Number: [id number] Group Number: [id number] Subscriber Identifier: [id number] Relationship to Subscriber: self Coverage Type: MEDICARE Coverage Verification Date: KOLE Telecom: KOLE Address:
--- NOTE | 2024-12-11 08:58 | MHC.OFFVIS ---
Intake Visit Reasons: 6 mnts Allergies No Known Allergies Allergy (Verified 02/02/24 09:52) Medication List - Last Reconciled 12/11/24 by Henry Varela MD acetaminophen 650 mg (2 x 325 mg) PO Q6H 30 days amlodipine 1 tab PO DAILY amoxicillin 2,000 mg (4 x 500 mg) PO ONCE 1 day amoxicillin 2,000 mg (4 x 500 mg) PO ONCE carbamazepine ER (Tegretol XR) 100 mg PO BID celecoxib (Celebrex) 200 mg PO ONCE 30 days enoxaparin 40 mg (0.4 mL) subcut Q24H 14 days ferrous sulfate 325 mg PO DAILY losartan 50 mg PO DAILY multivitamin 1 tab PO DAILY omeprazole 20 mg PO DAILY oxycodone 5 mg PO Q8H 7 days polymyxin B sulf-trimethoprim 10,000 unit- 1 mg/mL 1 drp ophthalmic (eye) QID 7 days prednisone 20 mg PO DAILY 7 days simvastatin 1 tab PO BEDTIME valacyclovir 1,000 mg PO TID 7 days HPI Comments Details: 79 years old man with a history of hypertension started having right-sided facial pain in February of 2024. He was diagnosed with trigeminal neuralgia and was treated with carbamazepine. Response has been mixed, sometime control of pain and sometime with exacerbation. On November 27, 2024 he had surgical decompression by Dr. Moffett at [facility]. Now he was pain free and not taking the med. [facility] Medical History COVID-19 vaccine administered Cancer Arthritis History of diverticulitis Anemia Hx of sciatica Hx of basal cell carcinoma GERD (gastroesophageal reflux disease) Diverticulosis Elevated cholesterol HTN (hypertension) Primary osteoarthritis of left knee Osteoarthritis of both knees Surgical History Hx of colonoscopy Hx of spinal surgery Hx of arthroscopy of left knee Family History Mother Breast cancer Social History Are you a primary reproductive healthcare assistant to a significant other at home: Yes (mother-has siblings to help) Do you presently have visiting nurse or other home services: No Alcohol intake: former Patient Tobacco Use Status: Never used Tobacco service: Yes Current occupational status: retired Current occupation: Right Handed Review of Systems Const Details: Constitutional:?No fever, chills, fatigue, weight loss, or night sweats. HEENT:?No headache, vision changes, hearing loss, nasal congestion, sore throat. Neurological:?No dizziness, syncope, seizures, numbness, tingling, weakness, tremors, memory loss. Psychiatric:?No anxiety, depression, mood swings, sleep disturbance, or hallucinations. Endocrine:?No heat/cold intolerance, polydipsia, polyuria, or hair/skin changes. Hematologic/Lymphatic:?No easy bruising, bleeding, or lymphadenopathy. Integumentary (Skin):?No rash, lesions, itching, or color changes. ? Physical Exam Neuro Other: Mental Status: Alert and oriented to person, place, and time. Normal attention. Normal spontaneous speech, fluency, and comprehension. No obvious issues with mood and memory. Affect is appropriate. Cranial Nerves: CN II: Visual dawson full to confrontation, visual acuity intact. CN III, IV, : Pupils equal, round, reactive to light and accommodation. Extraocular movements are normal. CN V: Facial sensation is normal. CN VII: Facial movements symmetrical. CN VIII: Hearing intact to bedside conversation is normal. CN IX, X: Palate elevates symmetrically. CN XI: Shoulder shrug and head turn symmetrical. CN XII: Tongue midline without atrophy or fasciculations. Extrapyramidal: Full facial expressions and blinking. No rigidity. Movements are appropriate with no tremor or abnormality. Speech: Normal; no dysarthria or tremor. Assessment & Plan Assessment & Plan (1) Trigeminal neuralgia of right side of face: Comment: Meds tried: Gabapentin, carbamazepine [place] [facility] [facility] [place]: Minimal MVD. Code(s): G50.0 - Trigeminal neuralgia Category: Medical Plan Impression: Right trigeminal neuralgia status post surgical decompression with resolution of pain Recommendations: No further intervention or medicine is needed at this time. Follow-up would be as needed. Coding Level of Care Code Tele Est Pt Level 4 (35094) Diagnoses Trigeminal neuralgia of right side of face G50.0
--- OUTSIDE RECORDS SUMMARY | 2024-12-11 09:16 | XMS_ITS | Patient Health Record ---
Author Organization [facility] Address [address] [place] [address] Care Team Providers Care Metal Polisher And Buffer Apprentice Name Role Phone Hannah (RETIRED) Henry CASTRO Primary Care Provider Unavailable Alf More Jr Unavailable [phone] Reason For Referral No Information Medications Medication SIG (Take, Route, Frequency, Duration) Notes Start Date End Date Status MiraLax (colon prep) 8.3 ounce ((238) grams mixed with Gatorade or Crystal Light orally begin at 5:00 p.m. the day before the procedure for 1 day 06/29/2020 Active Omeprazole Active One Daily Adults 50+ Active Simvastatin 20 MG 1 tablet in the even ing Orally Once a day Active amLODIPine Besylate Active Immunizations Vaccine Route Administration Date Status Comme nts Influenza Unknown 03/04/2020 Administered Problems Problem Type SNOMED Code ICD Code Onset Dates Problem Status W/U Status Risk Notes Problem 965399014 Colon cancer screening (Z12.11) Active confirmed Problem 40756075 Rectal bleeding (K62.5) Active confirmed Problem 321677335 [facility] curren t use of non-steroidal anti-inflammatories (NSAID) (Z79.1) Active confirmed Problem 533003301 Diverticulosis o f large intestine without hemorrhage (K57.30) Active confirmed Plan Of Treatment Future Test Test Name Order Date COLONOSCOPY 06/04/2015 COLONOSCOPY 06/29/2020 Insurance Providers Payer Name Payer Address Payer Phone Subscriber Number Group Number Insured Name Patient Relationship to Insured Coverage Start Date Coverage End Date MEDICARE OF [employer] [address] [place] [id number] [phone] [id number] DARRIUS PRIEST Self - patient is the insured Medical (General) History Medical History History ICD Code colon polyps, colonoscopy 08/28/15, five-y ear followup 09/09 diverticulosis arthritis fractured wrist hypertension elevated cholesterol Surgical History Surgery Date(Month/Year) spinal stenosis surgery
== END 2024-12-11 09:43 | disposition home or self-care (01) ==
LOC: HO.HSM 08:52
PROVIDERS: PCP Internal Medicine; Visit Provider Psychiatry & Neurology Neurology
DX: G50.0 Trigeminal neuralgia (principal)
CPT/HCPCS: 99214

== ENCOUNTER → 2024-12-11 08:51 | Outpatient (BNVA) | payer MEDICARE, SELFPAY | PROVIDERS: PCP Internal Medicine; Visit Provider Psychiatry & Neurology Neurology | DX: G50.0 Trigeminal neuralgia (principal) | CPT/HCPCS: 99212 ==

== ENCOUNTER 2025-02-12 10:06 | Outpatient (AMB) | payer MEDICARE, SELFPAY ==
--- NOTE | 2025-02-12 10:13 | A.OFFPC_ITS ---
Vital Signs 02/12/25 10:17 Height 5 ft 6.22 in Weight 179 lb BMI 28.7 BP 130/68 Blood Pressure Location Rt brachial Position Sitting Respiration 14 Pulse 84 Pulse Source Pulse Oximeter Temp 98.2 F Temp Source Temporal Artery Scan Pulse Oximetry (%) 98 Oxygen Delivery Method Room Air Intake Visit Reasons: Establish care Well Blower Required: No Accompanied by: Self / Same As Patient Allergies No Known Allergies Allergy (Verified 02/12/25 10:30) Medication List - Last Reconciled 02/12/25 by Taty Abebe PA-C amlodipine 1 tab PO DAILY losartan 50 mg PO DAILY multivitamin 1 tab PO DAILY omeprazole 20 mg PO DAILY simvastatin 1 tab PO BEDTIME Tobacco use date assessed: 02/12/25 Fall risk assessment: No Falls in past year Last assessed Fall Risk: 02/12/25 Dental Screening Dental Screen Date: 02/12/25 Did you have a dental visit in the last 12 months?: Yes Did you have a dental problem in the last 6 months where you did not have access to dental care?: No Was dental information given to patient?: Patient has dentist HPI Establish care HPI Details The patient is a 79-year-old male presenting for a new patient appointment and preventative care. He was a patient of Dr. Young who retired. The patient has a history of hypertension, currently managed with amlodipine 10 mg daily and losartan 50 mg daily. His blood pressure was noted to be normal du ring the visit. He is also on simvastatin 20 mg for hyperlipidemia, and his cholesterol levels are being monitored. The patient takes omeprazole for gastroesophageal reflux disease, which he reports has been well-controlled. He has a history of basal cell carcinoma on his nose, treated years ago, and is now being referred for a dermatological evaluation for a cyst on his right arm. Preventative care measures include a colonoscopy last performed in June 2020, with the next one due in 2025, and routine blood work to be completed before his next physical in April. COUNTS INCLUDE 234 BEDS AT THE [facility] Medical History (Updated 02/12/25 @ 11:48 by Taty Abebe PA-C) Colon cancer screening Preventative health care Atypical nevi COVID-19 vaccine administered Cancer Arthritis History of diverticulitis Anemia Hx of sciatica Hx of basal cell carcinoma GERD (gastroesophageal reflux disease) Diverticulosis Elevated cholesterol HTN (hypertension) Primary osteoarthritis of left knee Osteoarthritis of both knees Surgical History Hx of colonoscopy (~07/15/20) Hx of spinal surgery Hx of arthroscopy of left knee Family History Mother Breast cancer Social History Housing: House Are you a primary client care consultant to a significant other at home: Yes (mother-has siblings to help) Do you presently have visiting nurse or other home services: No Alcohol intake: current Alcohol intake frequency: does not drink Patient Tobacco Use Status: Never used Tobacco service: Yes Current occupational status: retired Cognitive needs: No Hearing needs: No Vision needs: Yes (rx glasses) Questionnaire PHQ-9 Over the last 2 weeks, how often have you been bothered by any of the following problems? 1. Little interest or pleasure in doing things: not at all 2. Feeling down, depressed, or hopeless: not at all 3. Trouble falling or staying asleep, or sleeping too much: not at all 4. Feeling tired or having little energy: not at all 5. Poor appetite or overeating: not at all 6. Feeling bad about yourself - or that you are a failure or have let yourself or your family down: not at all 7. Trouble concentrating on things, such as reading the newspaper or watching television: not at all 8. Moving or speaking so slowly that other people could have noticed. Or the opposite - being so fidgety or restless that you have been moving around a lot more than usual: not at all 9. Thoughts that you would be better off or of hurting yourself in some way: not at all Total score: 0 Depression Screening Interpretation: Negative Depression Screening Done: Yes 26526 - PHQ-9 Billing: Yes Source: Developed by Drs. Edvin Hodge, Carolyn Joseph, Ned Bedolla and colleagues, with an educational kassy from [employer]. Thrive Questionnaire Date Thrive assessed: 02/12/25 I am a: Patient What is your living situation today?: I have a steady place to live Within the past 12 months, did the food you bought not last and you didn't have the money to get more?: Never true Within the past 12 months, did you worry whether your food would run out before you got money to buy more?: Never true Do you have trouble paying for medicines?: No Do you have trouble getting transportation to medical appointments?: No Do you have trouble paying your heating and electricity bill?: No Do you have trouble taking care of your child, family member or friend?: No Do you have trouble with day-to-day activities such as bathing, preparing meals, shopping, managing finances, etc.?: No Are you currently unemployed and looking for a job?: No Are you interested in more education?: No Please select the resources that you would like help with: None THRIVE Score: 0 AUDIT C Alcohol Use Questionnaire (AUDIT-C) 1. How often do you have a drink containing alcohol?: Never 3. How often do you have six or more drinks on one occasion?: Never Total Score: 0 Score Reviewed/Action Taken: No FAIZAN-7 AMB Questionnaire FAIZAN-7 Date FAIZAN - 7 assessed: 02/12/25 Feeling nervous, anxious, or on edge: 0 = Not at all Not being able to stop or control worryin = Not at all Worrying too much about different things: 0 = Not at all Trouble relaxin = Not at all Being so restless that it is hard to sit still: 0 = Not at all Becoming easily annoyed or irritable: 0 = Not at all Feeling afraid as if something awful might happen: 0 = Not at all Total FAIZAN-7 score (0-4 normal; 5-9 mild; 10-14 moderate; 15-21 severe): 0 Source: Developed by Drs. Edvin Hodge, Carolyn Joseph, Ned Bedolla and colleagues, with an educational kassy from [employer]. FAIZAN-7 Assessment Billing FAIZAN-7 Assessment Tool: FAIZAN-7 Assessment 86431 Review of Systems Const Details: - Cardiovascular: Denies chest pain, palpitations, or syncope - Respiratory: Denies dyspnea, cough, or wheezing - Gastrointestinal: Denies black or bloody stools, unintentional weight loss - Genitourinary: Denies dysuria or hematuria - Neurological: Denies dizziness or balance issues All systems reviewed & are unremarkable except as noted in HPI and below Physical exam (Primary Care) Vital Signs: Last Vital Signs Temp 98.2 F 02/12/25 10:17 Pulse 84 02/12/25 10:17 Resp 14 02/12/25 10:17 BP 130/68 02/12/25 10:17 Pulse Ox 98 02/12/25 10:17 Oxygen Delivery Method Room Air 02/12/25 10:17 Care Plan Goal for BP management: <140/90 at Goal BMI result Body Mass Index 28.7 BMI Assessment/Plan discussion: High BMI High, discussed plan: lifestyle, weight reduction, dietary, physical activity, alcohol moderation and other Tobacco/Smoking Status: Tobacco use Status Tobacco use date assessed 02/12/25 02/12/25 10:22 Patient Tobacco Use Status Never used Tobacco 02/12/25 10:22 PHQ-9: PHQ-9 Score PHQ-9: Total score 0 02/12/25 10:22 Depression Screening Interpretation: Negative Thrive Assessment: Date of Thrive Assessment Date Thrive assessed 02/12/25 02/12/25 10:22 Const Other: Appearance: Alert. Oriented X3. No acute distress. Head: Normal external exam. Normocephalic. Atraumatic. Eyes: Pupils are equal, round, and reactive to light. Extraocular movements intact. Conjunctiva and sclera normal. Eyelids normal. Ears: External auditory canal normal. Tympanic membranes normal. Throat: Pharynx normal. Uvula midline. Moist mucous membranes. Neck: Normal inspection. Neck supple. Full range of motion. Cardiovascular: Normal heart rate and rhythm. Heart sound normal. No murmurs noted. Pulses normal throughout. Respiratory: No respiratory distress. Painless inspiration. Breath sounds nor mal. No wheezes/rales/rhonchi noted. Chest nontender. No accessory muscle usage noted or decreased air movement noted. Abdomen: Soft and nontender. Bowel sounds normal in all 4 quadrants. No distention noted. No organomegaly noted. No visible injury noted. Back: No costovertebral angle tenderness. Full range of motion noted. Skin: Skin warm and dry. Normal skin color. Normal skin turgor. No rashes /lesions/lacerations noted. Cyst noted on right arm. Extremities: No lower extremity edema. Extremities exhibit normal range of motion. Extremities nontender. Neuro: Oriented X 3. No motor deficit. No sensory deficit. Reflexes normal. Office Procedures Flu Questionnaire Does the patient have a severe egg allergy?: No Does the patient have severe life threatening allergies?: No Does the patient have a fever or illness today?: No Has the patient ever had Guillain-Verdigre Syndrome?: No Has the patient ever had any past reaction to a flu shot?: No Immunizations Fluarix [id number] (PF) 45 mcg (15 mcg x 3)/0.5 mL IM syringe Performing Provider: Taty Abebe PA-C [facility] Administered by: AKIKO Romo on 02/12/25 10:22 Dose Route Admin Location Dispensed Lot Number Expiration Date [facility] [facility] 0.5 mL IM Left Deltoid 0.5 mL [id number] 11/18/25 [id number] [employer] VIS Given Date VIS Provided VIS Publication Date 02/12/25 Single Vaccine 24 Eligibility Eligibility Date Funding Source Not [facility] Eligible 02/12/25 Private Results Reviewed Results Reviewed: - Labs: Platelet count was 159,000, kidney function normal, liver enzymes normal, albumin normal Coding Level of Care Code New Pt Level 4 (40183) Complex EM visit Add On G2211 Diagnoses HTN (hypertension) I10 Elevated cholesterol E78.00 GERD (gastroesophageal reflux disease) K21.9 Preventative health care Z00.00 Colon cancer screening Z12.11 Hx of basal cell carcinoma Z85.828 Additional Codes PHQ-9 - 09344 - PHQ-9 Billing: Yes ([id number]) FAIZAN-7 Assessment Billing - FAIZAN-7 Assessment Tool: FAIZAN-7 Assessment 25665 ([id number]) Assessment & Plan Assessment & Plan (1) HTN (hypertension): Code(s): I10 - Essential (primary) hypertension Category: Medical Plan: The patient's hypertension is currently managed with amlodipine 10 mg daily and losartan 50 mg daily, with blood pressure readings within normal limits during the visit. (2) Elevated cholesterol: Code(s): E78.00 - Pure hypercholesterolemia, unspecified Category: Medical Plan: The patient is on simvastatin 20 mg for hyperlipidemia, with ongoing monitoring of cholesterol levels. (3) GERD (gastroesophageal reflux disease): Code(s): K21.9 - Gastro-esophageal reflux disease without esophagitis Category: Medical Plan: The patient takes omeprazole for gastroesophageal reflux disease, which is currently well-controlled. (4) Preventative health care: Code(s): Z00.00 - Encounter for general adult medical examination without abnormal findings Category: Medical Plan: Routine blood work is planned before the next physical in April, including CBC, CMP, PSA, thyroid function, and other relevant tests. (5) Colon cancer screening: Code(s): Z12.11 - Encounter for screening for malignant neoplasm of colon Category: Medical Plan: The patient had a colonoscopy in June 2020, with the next one due in 2025, and will be referred for the procedure during the next physical. (6) Hx of basal cell carcinoma: Comment: nose Code(s): Z85.828 - Personal history of other malignant neoplasm of skin Category: Medical Plan: The patient has a history of basal cell carcinoma on the nose, treated years ago, and is now referred for dermatological evaluation for a cyst on the right arm to rule out any malignancy. Plan Plan Patient was informed and verbally consented to the use of an ambient scribe for clinic note documentation during this visit. 1. Hypertension The patient's hypertension is currently managed with amlodipine 10 mg daily and losartan 50 mg daily, with blood pressure readings within normal limits during the visit. 2. Hyperlipidemia The patient is on simvastatin 20 mg for hyperlipidemia, with ongoing monitoring of cholesterol levels. 3. Gastroesophageal Reflux Disease The patient takes omeprazole for gastroesophageal reflux disease, which is currently well-controlled. 4. History Of Basal Cell Carcinoma The patient has a history of basal cell carcinoma on the nose, treated years ago, and is now referred for dermatological evaluation for a cyst on the right arm to rule out any malignancy. 5. Preventative Care: Colonoscopy The patient had a colonoscopy in June 2020, with the next one due in 2025, and will be referred for the procedure during the next physical. 6. Preventative Care: Blood Work Routine blood work is planned before the next physical in April, including CBC, CMP, PSA, thyroid function, and other relevant tests. During the visit, we discussed the patient's current management of hypertension and hyperlipidemia, including medication adherence and monitoring of blood pre ssure and cholesterol levels. We also reviewed the patient's history of gastroesophageal reflux disease and the effectiveness of omeprazole in controlling symptoms. Preventative care measures were emphasized, including the scheduling of routine blood work and a future colonoscopy. A referral to dermatology was made for evaluation of a cyst on the right arm, given the patient's history of basal cell carcinoma. Orders: Orders PSA,Total (Free>4and<10) Today Z00.00 - Encounter for general adult medical examination without abnormal findings UA CC w/rflx Micro + Cult Today Z00.00 - Encounter for general adult medical examination without abnormal findings Vitamin D 25-OH Total Today Z00.00 - Encounter for general adult medical examination without abnormal findings Influenza [id number] Immunization Today Z23 - Encounter for immunization C Reactive Protein Today Z00.00 - Encounter for general adult medical examination without abnormal findings Complete Blood Count Auto Diff Today Z00.00 - Encounter for general adult medical examination without abnormal findings Comprehensive Brick. Panel Fast Today Z00.00 - Encounter for general adult medical examination without abnormal findings Hemoglobin A1c Today Z00.00 - Encounter for general adult medical examination without abnormal findings TSH reflex Free T4 Today Z00.00 - Encounter for general adult medical examination without abnormal findings Vitamin B12 and Folate Today Z00.00 - Encounter for general adult medical examination without abnormal findings Magnesium Today Z00.00 - Encounter for general adult medical examination without abnormal findings Liver Panel Today Z00.00 - Encounter for general adult medical examination without abnormal findings Lipid Panel Today Z00.00 - Encounter for general adult medical examination without abnormal findings Referrals Dermatology Referral D22.9 - Melanocytic nevi, unspecified Patient Instructions: - Continue current medications as prescribed. - Schedule and complete blood work before the next physical in April. - Follow up with dermatology for evaluation of the cyst on the right arm. - Return for a physical in April.
[2025-02-12 10:17] VITALS: BP 130/68; PULSE 84; RESP 14; TEMP 36.8; O2SAT 98; BMI 28.7
--- OUTSIDE RECORDS SUMMARY | 2025-02-12 12:20 | XMS_ITS | Patient Health Record ---
Author Organization [facility] Address [address] [place] [address] Care Team Providers Care Table Assembler Name Role Phone Hannah (RETIRED) Henry CASTRO Primary Care Provider Unavailable Alf More Jr Unavailable [phone] Reason For Referral No Information Medications Medication [...] Problem Status W/U Status Risk Notes Problem [id number] Colon cancer screening (Z12.11) Active confirmed Problem 15582556 Rectal bleeding (K62.5) Active confirmed Problem [id number] senior living curren t use of non-steroidal anti-inflammatories (NSAID) (Z79.1) Active confirmed Problem 897094563 Diverticulosis o f large intestine without hemorrhage (K57.30) Active confirmed Plan Of Treatment Future Test Test Name Order Date COLONOSCOPY 06/04/2015 COLONOSCOPY 06/29/2020 Insurance Providers Payer Name Payer Address Payer Phone Subscriber Number Group Number Insured Name Patient Relationship to Insured Coverage Start Date Coverage End Date MEDICARE OF [employer] [address] [place] [id number] [phone] [id number] DARRIUS PRIEST Self - patient is the insured Medical (General) History Medical History History ICD Code colon polyps, colonoscopy 08/28/15, five-y ear followup 09/09 diverticulosis arthritis fractured wrist hypertension elevated cholesterol Surgical History Surgery Date(Month/Year) spinal stenosis surgery
== END 2025-02-12 10:43 | disposition home or self-care (01) ==
LOC: HO.HMCSH 10:06
PROVIDERS: PCP Internal Medicine; Visit Provider Physician Assistant Medical
DX: I10 Essential (primary) hypertension (principal); E78.00 Pure hypercholesterolemia, unspecified; K21.9 Gastro-esophageal reflux disease without esophagitis; Z00.00 Encounter for general adult medical examination without abnormal findings; Z12.11 Encounter for screening for malignant neoplasm of colon; Z85.828 Personal history of other malignant neoplasm of skin; Z23 Encounter for immunization

== ENCOUNTER → 2025-02-12 10:06 | Outpatient (BNVA) | payer MEDICARE, SELFPAY | PROVIDERS: PCP Internal Medicine; Visit Provider Physician Assistant Medical | DX: Z00.00 Encounter for general adult medical examination without abnormal findings (principal); E78.00 Pure hypercholesterolemia, unspecified; K21.9 Gastro-esophageal reflux disease without esophagitis; I10 Essential (primary) hypertension; Z23 Encounter for immunization; Z85.828 Personal history of other malignant neoplasm of skin | CPT/HCPCS: 90471; 90656; 96127; 99202 ==

== ENCOUNTER 2025-04-22 09:44 | Emergency (ER) | payer MEDICARE, SELFPAY ==
[2025-04-22 10:29] VITALS: BP 181/87; PULSE 93; RESP 20; TEMP 36.6; O2SAT 96; BMI 30.6
--- NOTE | 2025-04-22 10:29 | ED.ABDPAIN ---
HPI - Abdominal Pain General Chief Complaint: Abdominal Pain Stated Complaint: abd pain, rectal bleeding Time Seen by Provider: 04/22/25 21:54 Related Data Home Medications ?Medication ?Instructions ?Recorded ?Confirmed multivitamin 1 tab PO DAILY 07/10/20 02/12/25 losartan 50 mg tablet 50 mg PO DAILY 12/09/24 02/12/25 Previous Rx's ?Medication ?Instructions ?Recorded simvastatin 20 mg tablet 20 mg PO DAILY #90 tabs 03/14/25 amlodipine 10 mg tablet 10 mg PO DAILY #90 tabs 04/11/25 omeprazole 20 mg capsule,delayed 20 mg PO DAILY #90 caps 04/11/25 release Allergies Allergy/AdvReac Type Severity Reaction Status Date / Time No Known Allergies Allergy Verified 04/22/25 10:31 [facility] Past Medical History Medical History (Updated 04/22/25 @ 22:44 by DULCE Hooks) Colon cancer screening Preventative health care Atypical nevi COVID-19 vaccine administered Cancer Arthritis History of diverticulitis Anemia Hx of sciatica Hx of basal cell carcinoma GERD (gastroesophageal reflux disease) Diverticulosis Elevated cholesterol HTN (hypertension) Primary osteoarthritis of left knee Osteoarthritis of both knees Surgical History Hx of colonoscopy (~07/15/20) Hx of spinal surgery Hx of arthroscopy of left knee Family History Family History Mother Breast cancer Social History Social History Housing: House Are you a primary day care home provider to a significant other at home: Yes (mother-has siblings to help) Do you presently have visiting nurse or other home services: No Alcohol intake: current Alcohol intake frequency: does not drink Patient Tobacco Use Status: Never used Tobacco Advance Directives: No Advance Directives Information Provided: No Do you have a plan to hurt others: No Plan service: Yes Current occupational status: retired Cognitive needs: No Hearing needs: No Vision needs: Yes (rx glasses) Physical Exam ED Vital Signs: Vital Signs - 24 hr 04/22/25 10:29 04/22/25 16:04 Temperature 97.9 F 97.4 F Pulse Rate 93 87 Respiratory Rate 20 20 Blood Pressure 181/87 H 182/86 H Pulse Oximetry 96 95 Oxygen Delivery Method Room Air Room Air BMI result Body Mass Index 30.6 Course Course Course Narrative: This is a Rapid Medical Examination (RME) performed by Marilu Chicas PA-C in triage. Full HPI, ROS, assessment and treatment plan per primary provider in the Main ED. Hx: 79 yo M hx of HTN, HLD, arthritis no longer on NSAIDs, diverticulosis here for eval of bright red blood in stool x this morning. assoc low back pain. no abd pain, NVD. last colonoscopy 4-5 years ago. PE/vitals: well appearing Plan: labs Reevaluation(s) Reevaluation #1: Patient left the emergency department before myself or any of the other clinicians could review or explain physical exam findings, test results, need or lack there of for additional testing, treatment options, or a treatment plan. Medical Decision Making Lab Data 04/22/25 11:03 04/22/25 11:03 Labs: Lab Results 04/22/25 Range/Units 11:03 WBC 9.1 (4.8-10.8) X10*3/uL RBC 4.67 (4.60-5.80) X10*6/uL Hgb 13.6 L (14.0-18.0) g/dl Hct 40.3 L (42.0-52.0) % MCV 86.3 (80.0-98.0) fL MCH 29.1 (27.0-33.0) pg MCHC 33.7 (31.0-36.0) g/dl RDW 12.7 (11.0-16.0) % Plt Count 223 D (160-400) X10*3/uL MPV 10.7 (9.4-12.4) fL Immature Gran % (Auto) 0.2 (0.0-0.4) % Neut % (Auto) 61.0 (45-73) % Lymph % (Auto) 21.3 (20-40) % Pitkin % (Auto) 9.1 (2-11) % Eos % (Auto) 7.6 H (0-4) % Baso % (Auto) 0.8 (0-2) % Lymph # (Auto) 1.9 (1.2-4.9) X10*3/uL Pitkin # (Auto) 0.8 (0.1-1.2) X10*3/uL Eos # (Auto) 0.7 H (0.0-0.4) X10*3/uL Baso # (Auto) 0.1 (0.0-0.2) X10*3/uL Abs Immat Gran (auto) 0.02 (0.00-0.03) X10*3/uL Absolute Neuts (auto) 5.5 (2.0-8.3) x10*3/uL Absolute Nucleated RBC 0.000 (0.0-0.012) X10*3/uL Nucleated RBC % (auto) 0.0 (0.0-0.2) /100WBC Sodium 144 (135-145) mmol/L Potassium 4.5 (3.3-5.1) mmol/L Chloride 110 H (96-108) mmol/L Carbon Dioxide 27 (22-29) mmol/L Anion Gap 12 (12-20) BUN 19 H (9-16) mg/dL Creatinine 1.17 (0.5-1.4) mg/dL Estim Creat Clear Calc 54.3 Estimated GFR > 60 Random Glucose 92 (60-115) mg/dL Calcium 9.5 (8.4-10.2) mg/dL Magnesium 2.0 (1.6-2.6) mg/dL Total Bilirubin 0.5 (0.0-1.0) mg/dL AST 32 (5-37) U/L ALT 32 (0-40) U/L Alkaline Phosphatase 66 (39-117) U/L Total Protein 7.0 (6.5-8.0) g/dL Albumin 4.4 (3.5-5.0) g/dL Lipase 22 (8-78) U/L Discharge Plan Discharge Clinical Impression: Rectal bleeding Patient Disposition: Left W/O Completing Treatment Prescriptions: No Action simvastatin 20 mg tablet 20 mg PO DAILY Qty: 90 3RF amlodipine 10 mg tablet 10 mg PO DAILY Qty: 90 3RF omeprazole 20 mg capsule,delayed release(DR/EC) 20 mg PO DAILY Qty: 90 3RF multivitamin Tablet 1 tab PO DAILY losartan 50 mg tablet 50 mg PO DAILY
[2025-04-22 11:15] LABS: MANUAL DIFF FLAG NO
[2025-04-22 11:18] LABS: Hematocrit 40.3 % (42.0-52.0); Hemoglobin 13.6 g/dl (14.0-18.0); Imm Gran Abs Auto 0.02 X10*3/uL (0.00-0.03); Imm Gran Pct Auto 0.2 % (0.0-0.4); Lymphocytes Absolute Auto 1.9 X10*3/uL (1.2-4.9); Mean Corpuscular HGB Conc 33.7 g/dl (31.0-36.0); Mean Corpuscular Hemoglobin 29.1 pg (27.0-33.0); Mean Corpuscular Volume 86.3 fL (80.0-98.0); NRBC Abs Auto 0.000 X10*3/uL (0.0-0.012); NRBC Pct Auto 0.0 /100WBC (0.0-0.2); Platelet Count 223 X10*3/uL (160-400); Red Blood Count 4.67 X10*6/uL (4.60-5.80); White Blood Count 9.1 X10*3/uL (4.8-10.8)
[2025-04-22 11:33] LABS: Alanine Aminotransferase 32 U/L (0-40); Albumin Level 4.4 g/dL (3.5-5.0); Alkaline Phosphatase 66 U/L (39-117); Anion Gap 12 (12-20); Aspartate Amino Transferase 32 U/L (5-37); Blood Urea Nitrogen 19 mg/dL (9-16); Calcium 9.5 mg/dL (8.4-10.2); Carbon Dioxide 27 mmol/L (22-29); Chloride 110 mmol/L (96-108); Creatinine Clr Calc Pharmacy 54.3; Estimated Glomerular Filt Rate > 60; Lipase 22 U/L (8-78); Magnesium 2.0 mg/dL (1.6-2.6); Potassium 4.5 mmol/L (3.3-5.1); Sodium 144 mmol/L (135-145); Total Protein 7.0 g/dL (6.5-8.0)
[2025-04-22 16:04] VITALS: BP 182/86; PULSE 87; RESP 20; TEMP 36.3; O2SAT 95
== END 2025-04-22 23:06 | disposition left against medical advice (07) ==
PROVIDERS: Physician Assistant Medical; Emergency Provider Emergency Medicine; PCP Internal Medicine
DX: K62.5 Hemorrhage of anus and rectum (principal); Z53.29 Procedure and treatment not carried out because of patient's decision for other reasons
CPT/HCPCS: 36415; 80053; 83690; 83735; 85025; 99281; 99283

== ENCOUNTER 2025-04-23 07:39 | Emergency (ER) | payer MEDICARE, SELFPAY ==
--- NOTE | ~2025-04-23 | CT_ITS ---
EXAMINATION: CT ABDOMEN PELVIS WITH IV CONTRAST HISTORY: diarrhea, hematochezia COMPARISON: Comparison is made with the prior examination dated 06/25/2020. TECHNIQUE: CT scan of the abdomen and pelvis was performed following administration of 85 mL Omnipaque 350 using standard departmental protocol. Coronal and sagittal reformatted images were generated and reviewed. Oral contrast material was not administered at the request of the referring physician. This CT exam was performed with one or more of the following dose reduction techniques: automated exposure control, adjustment of the mA and/or kV according to patient size, use of iterative reconstruction technique. DLP: 543 mGy-cm FINDINGS: LOWER CHEST: The visualized lung bases are clear. There is no pleural effusion. CARDIOVASCULATURE: The heart is normal in size. There is no pericardial effusion. LIVER: The liver is normal in size and contour. There is a probable 10 mm cyst of the right lobe without change. The hepatic and portal veins are patent. GALLBLADDER / BILE DUCTS: There is cholelithiasis. There is no intra or extrahepatic biliary ductal dilatation. SPLEEN: The spleen is normal in size. No focal splenic lesion is identified. PANCREAS: The pancreas is unremarkable in appearance. ADRENAL GLANDS: Within normal limits. KIDNEYS/RETROPERITONEUM: No renal calculi are identified. There is no hydronephrosis. No renal masses are identified. LYMPH NODES: No abdominal or pelvic lymphadenopathy. VASCULATURE: The abdominal aorta is normal in caliber. MESENTERY/PERITONEUM: No free fluid. No masses. There is no free intraperitoneal gas. STOMACH: There is a moderate to large hiatal hernia. SMALL BOWEL: The small bowel is normal in caliber. COLON: There is extensive diverticulosis of the descending and sigmoid colon without evidence of diverticulitis. APPENDIX: Normal. URINARY BLADDER/PELVIC ORGANS: The urinary bladder is unremarkable. The prostate is mildly enlarged. BONES / SOFT TISSUES: No suspicious bony or soft tissue abnormalities. CT/CT abdomen pelvis w IV con IMPRESSION: 1. Diverticulosis of the descending and sigmoid colon without evidence of diverticulitis. 2. Moderate hiatal hernia. 3. Cholelithiasis. Electronically signed by: Edvin Durham MD 04/23/2025 11:30 AM [facility] [place]
[2025-04-23 07:46] VITALS: BP 158/72; PULSE 115; RESP 20; TEMP 37.1; O2SAT 97; BMI 29.9
[2025-04-23 09:19] LABS: MANUAL DIFF FLAG NO
[2025-04-23 09:28] LABS: Hematocrit 38.0 % (42.0-52.0); Hemoglobin 12.9 g/dl (14.0-18.0); Imm Gran Abs Auto 0.03 X10*3/uL (0.00-0.03); Imm Gran Pct Auto 0.3 % (0.0-0.4); Lymphocytes Absolute Auto 2.1 X10*3/uL (1.2-4.9); Mean Corpuscular HGB Conc 33.9 g/dl (31.0-36.0); Mean Corpuscular Hemoglobin 29.7 pg (27.0-33.0); Mean Corpuscular Volume 87.4 fL (80.0-98.0); NRBC Abs Auto 0.000 X10*3/uL (0.0-0.012); NRBC Pct Auto 0.0 /100WBC (0.0-0.2); Platelet Count 252 X10*3/uL (160-400); Red Blood Count 4.35 X10*6/uL (4.60-5.80); White Blood Count 9.5 X10*3/uL (4.8-10.8)
[2025-04-23 09:37] LABS: Alanine Aminotransferase 25 U/L (0-40); Albumin Level 4.3 g/dL (3.5-5.0); Alkaline Phosphatase 65 U/L (39-117); Anion Gap 12 (12-20); Aspartate Amino Transferase 29 U/L (5-37); Blood Urea Nitrogen 27 mg/dL (9-16); Calcium 9.3 mg/dL (8.4-10.2); Carbon Dioxide 25 mmol/L (22-29); Chloride 111 mmol/L (96-108); Creatinine Clr Calc Pharmacy 54.2; Estimated Glomerular Filt Rate > 60; Lipase 13 U/L (8-78); Potassium 5.1 mmol/L (3.3-5.1); Sodium 143 mmol/L (135-145); Total Protein 6.9 g/dL (6.5-8.0)
--- NOTE | 2025-04-23 09:57 | ED.GENADULT ---
HPI - General Adult General Chief complaint: GI Bleed Stated complaint: rectal bleeding Time Seen by Provider: 04/23/25 09:53 Source: patient, RN notes reviewed and old records reviewed Mode of arrival: ambulatory Limitations: no limitations History of Present Illness ED Provider: Reji [facility] narrative: Patient is a 79-year-old male with pmhx of diverticulitis, anemia, arthritis, GERD, hypertension presenting to the emergency department with complaint of diarrhea and hematochezia which began yesterday morning. Reports that he was having bowel movements approximately every 30 minutes. Denies recent antibiotic use or recent travel. Denies fevers. Denies any nausea or vomiting. Denies any current abdominal pain. States that he presented to the ED yesterday but left due to wait time. Reports 1 prior episode of similar symptoms around 5 years ago which was attributed to him taking too many NSAIDs for his arthritis. States he has not been taking NSAIDs since that time. He is not currently anticoagulated. MD complaint: hematochezia Onset (ago): day(s) Related Data Home Medications ?Medication ?Instructions ?Recorded ?Confirmed multivitamin 1 tab PO DAILY 07/10/20 02/12/25 losartan 50 mg tablet 50 mg PO DAILY 12/09/24 02/12/25 Previous Rx's ?Medication ?Instructions ?Recorded simvastatin 20 mg tablet 20 mg PO DAILY #90 tabs 03/14/25 amlodipine 10 mg tablet 10 mg PO DAILY #90 tabs 04/11/25 omeprazole 20 mg capsule,delayed 20 mg PO DAILY #90 caps 04/11/25 release Allergies Allergy/AdvReac Type Severity Reaction Status Date / Time No Known Allergies Allergy Verified 04/23/25 07:48 Review of Systems Review of Systems: As per HPI Yes all other systems are reviewed and are negative Constitutional: Constitutional: Reports as per HPI [facility] Past Medical History Medical History (Updated 04/23/25 @ 13:19 by Toya Mendoza NP) Colon cancer screening Preventative health care Atypical nevi COVID-19 vaccine administered Cancer Arthritis History of diverticulitis Anemia Hx of sciatica Hx of basal cell carcinoma GERD (gastroesophageal reflux disease) Diverticulosis Elevated cholesterol HTN (hypertension) Primary osteoarthritis of left knee Osteoarthritis of both knees Surgical History Hx of colonoscopy (~07/15/20) Hx of spinal surgery Hx of arthroscopy of left knee Family History Family History Mother Breast cancer Social History Social History Housing: House Are you a primary care transition mgr to a significant other at home: Yes (mother-has siblings to help) Do you presently have visiting nurse or other home services: No Alcohol intake: current Alcohol intake frequency: does not drink Patient Tobacco Use Status: Never used Tobacco Advance Directives: No Advance Directives Information Provided: Yes Do you have a plan to hurt others: No Plan service: Yes Current occupational status: retired Cognitive needs: No Hearing needs: No Vision needs: Yes (rx glasses) Physical Exam ED Vital Signs: Vital Signs - 24 hr 04/23/25 07:46 Temperature 98.8 F Pulse Rate 115 H Respiratory Rate 20 Blood Pressure 158/72 H Pulse Oximetry 97 Oxygen Delivery Method Room Air BMI result Body Mass Index 29.9 Vital signs have been reviewed and appear to be correct. Blood pressure normal. Heart rate mildly tachycardic. Respiratory rate normal. Temperature normal. Oxygen saturation normal. Const General: cooperative, healthy appearing and no acute distress Orientation/consciousness: oriented to person, oriented to place, oriented to time and patient oriented x3 Limitations: no limitations HENMT Head: Yes normocephalic and Yes atraumatic Ears: external ears normal General nose exam: Normal external nose present Face and sinus: Yes face symmetric Mouth: oropharynx normal and moist mucous membranes Throat: Yes uvula midline Eyes Pupils: Equal, round and reactive pupils present Neck Neck: Yes normal visual inspection and Yes supple Resp Effort & Inspection: normal respiratory effort and able to speak in complete sentences Auscultation: clear to auscultation bilaterally Cardio Rate: regular rate Rhythm: regular rhythm Heart sounds: S1 normal heart sound present and S2 normal heart sound present GI Other: Rectal exam chaperoned by DAVID Arizmendi. Christine blood noted, no evidence of external hemorrhoids. Palpation (GI): Soft to palpation and nontender Auscultation: normoactive bowel sounds Rectal Exam - Male: Yes Abnormal stool present (christine blood) and No External hemorrhoid(s) present General: Yes no CVA tenderness Back/Spine/Pelvis Back: no CVA tenderness Skin General skin exam: elasticity normal and turgor normal Neuro General: oriented to person, oriented to place, oriented to time, patient oriented x3, moves all extremities, no focal motor deficits and CN's II-XI intact bilaterally Cranial nerves: Yes Equal, round and reactive pupils present Cognition (Neuro): normal cognition Extrem General: Yes full ROM, Yes no pedal edema and Yes no calf tenderness Psych Mental Status: mental status grossly normal Affect: normal affect Thought process: Normal thought process present Medications Administered Generic Name Dose Route Start Last Admin Trade Name Freq PRN Reason Stop Dose Admin Lactated Ringer's 1,000 mls @ 999 mls/hr 04/23/25 12:15 04/23/25 12:27 Lr IV 04/23/25 13:15 999 mls/hr .[id number] AMADEO Administration Discontinued Medications Generic Name Dose Route Start Last Admin Trade Name Freq PRN Reason Stop Dose Admin Iohexol 100 ml 04/23/25 11:07 04/23/25 11:07 Iohexol 350 Mg/Ml 100 Ml Infus..Btl IV 04/23/25 11:08 85 ml ONCE ONE Administration Medical Decision Making Medical Decision Making MDM Narrative: Patient is a 79-year-old male with pmhx of diverticulitis, anemia, arthritis, GERD, hypertension presenting to the emergency department with complaint of diarrhea and hematochezia which began yesterday morning. On exam patient is awake, A+Ox3, mildly tachycardic, VS otherwise WNL, afebrile, normal neurological exam without focal deficits, physical exam findings as above. Given reported symptoms and physical exam findings, initial differential includes but is not limited to hemorrhoids, GI bleed, diverticulitis, perforation, abscess, IBD. Labs notable for mild anemia with slight drop from labs drawn yesterday, elevated BUN with normal creatinine. CT A/P notable for diverticulosis without evidence of diverticulitis, moderate hiatal hernia, cholelithiasis. My interpretation is in agreement with the radiologist's interpretation. Results discussed with patient. Christine blood noted on rectal exam, patient is mildly tachycardic with stable blood pressure. Will give IV fluids, repeat CBC. Patient aware we would like to send stool specimens. Patient has GBS score of 5. Will reach out to GI. Spoke with Dr. Bruce who states that if patient is not experiencing active bleeding in the ED, he can follow up outpatient with Dr. More who he usually follows with. Plan discussed with patient who is in agreement with this. Strict return precautions discussed. Patient verbalized understanding of and agreement with plan. Differential Diagnosis Differential Diagnoses: The differential diagnosis associated with the presentation includes as per [facility] Admission/Observation Consideration of admission/observation: Escalation of care including admission/observation considered Patient would have been admitted to the hospital and transferred to appropriate facility had their clinical presentation warranted hospital admission. Consult Healthcare Provider Management of the patient was discussed with: Home Assessment Nurse (Dr. Bruce, ) Lab Data [facility] Lab Attestation statement: I reviewed the patient's lab results. as per [facility] 04/23/25 12:29 04/23/25 09:15 Labs: Lab Results 04/23/25 04/23/25 Range/Units 09:15 12:29 WBC 9.5 12.0 H (4.8-10.8) X10*3/uL RBC 4.35 L 4.28 L (4.60-5.80) X10*6/uL Hgb 12.9 L 12.6 L (14.0-18.0) g/dl Hct 38.0 L 37.3 L (42.0-52.0) % MCV 87.4 87.1 (80.0-98.0) fL MCH 29.7 29.4 (27.0-33.0) pg MCHC 33.9 33.8 (31.0-36.0) g/dl RDW 12.8 13.0 (11.0-16.0) % Plt Count 252 222 (160-400) X10*3/uL MPV 10.7 10.4 (9.4-12.4) fL Immature Gran % (Auto) 0.3 0.3 (0.0-0.4) % Neut % (Auto) 64.7 68.2 (45-73) % Lymph % (Auto) 22.1 19.7 L (20-40) % Ness % (Auto) 8.3 8.7 (2-11) % Eos % (Auto) 3.8 2.6 (0-4) % Baso % (Auto) 0.8 0.5 (0-2) % Lymph # (Auto) 2.1 2.4 (1.2-4.9) X10*3/uL Ness # (Auto) 0.8 1.0 (0.1-1.2) X10*3/uL Eos # (Auto) 0.4 0.3 (0.0-0.4) X10*3/uL Baso # (Auto) 0.1 0.1 (0.0-0.2) X10*3/uL Abs Immat Gran (auto) 0.03 0.04 H (0.00-0.03) X10*3/uL Absolute Neuts (auto) 6.2 8.2 (2.0-8.3) x10*3/uL Absolute Nucleated RBC 0.000 0.000 (0.0-0.012) X10*3/uL Nucleated RBC % (auto) 0.0 0.0 (0.0-0.2) /100WBC Sodium 143 (135-145) mmol/L Potassium 5.1 (3.3-5.1) mmol/L Chloride 111 H (96-108) mmol/L Carbon Dioxide 25 (22-29) mmol/L Anion Gap 12 (12-20) BUN 27 H (9-16) mg/dL Creatinine 1.16 (0.5-1.4) mg/dL Estim Creat Clear Calc 54.2 Estimated GFR > 60 Random Glucose 89 (60-115) mg/dL Calcium 9.3 (8.4-10.2) mg/dL Total Bilirubin 0.9 (0.0-1.0) mg/dL Direct Bilirubin 0.3 (0.0-0.5) mg/dL AST 29 (5-37) U/L ALT 25 (0-40) U/L Alkaline Phosphatase 65 (39-117) U/L Total Protein 6.9 (6.5-8.0) g/dL Albumin 4.3 (3.5-5.0) g/dL Lipase 13 (8-78) U/L Independent Interpretation I performed an independent interpretation of an: CT Scan Interpretation: CT A/P notable for diverticulosis without evidence of diverticulitis, moderate hiatal hernia, cholelithiasis. Radiology Impression Discussion of test interpretation with radiology: I have reviewed the radiologist's reading. Radiologist Impression: CT/CT abdomen pelvis w IV con IMPRESSION: 1. Diverticulosis of the descending and sigmoid colon without evidence of diverticulitis. 2. Moderate hiatal hernia. 3. Cholelithiasis. External Record Review External record reviewed: Inpatient record, Office record and Outpatient record Critical Care Time Critical Care Time Critical Care Time: Yes Total Critical Care Time: 41 Attestation: .cc Discharge Plan Discharge Clinical Impression: Hematochezia, Diarrhea Patient Disposition: Home, Self-Care Instructions: Rectal Bleeding (ED) Additional Instructions: You were evaluated in the emergency department today for rectal bleeding. Your labs were reassuring and your CT scan did not show any acute abnormalities. Call the gastroenterology office tomorrow to schedule a follow up appointment with Dr. More. Return to the emergency department if you have additional episodes of rectal bleeding, dizziness, lightheadedness, fainting, chest pain, shortness of breath or difficulty breathing or any other new or concerning symptoms. Prescriptions: No Action simvastatin 20 mg tablet 20 mg PO DAILY Qty: 90 3RF amlodipine 10 mg tablet 10 mg PO DAILY Qty: 90 3RF omeprazole 20 mg capsule,delayed release(DR/EC) 20 mg PO DAILY Qty: 90 3RF multivitamin Tablet 1 tab PO DAILY losartan 50 mg tablet 50 mg PO DAILY Referrals: Alf More MD [Physician, Gastroenterology] - 1 day Referral Note: Case discussed with Dr. Bruce while patient in the ED Clinical Impression: Diarrhea; Hematochezia Print Language: Yakut
[2025-04-23] MEDS: iohexoL 350 MG/ML 100 ML INFUS..BTL IV (11:07)
[2025-04-23] MEDS: Lactated Ringers 1,000 ML 999 ML IV (12:27)
[2025-04-23 12:37] LABS: MANUAL DIFF FLAG NO
[2025-04-23 12:42] LABS: Hematocrit 37.3 % (42.0-52.0); Hemoglobin 12.6 g/dl (14.0-18.0); Imm Gran Abs Auto 0.04 X10*3/uL (0.00-0.03); Imm Gran Pct Auto 0.3 % (0.0-0.4); Lymphocytes Absolute Auto 2.4 X10*3/uL (1.2-4.9); Mean Corpuscular HGB Conc 33.8 g/dl (31.0-36.0); Mean Corpuscular Hemoglobin 29.4 pg (27.0-33.0); Mean Corpuscular Volume 87.1 fL (80.0-98.0); NRBC Abs Auto 0.000 X10*3/uL (0.0-0.012); NRBC Pct Auto 0.0 /100WBC (0.0-0.2); Platelet Count 222 X10*3/uL (160-400); Red Blood Count 4.28 X10*6/uL (4.60-5.80); White Blood Count 12.0 X10*3/uL (4.8-10.8)
[2025-04-23 13:24] VITALS: BP 133/74; PULSE 85; RESP 18; TEMP 36.4; O2SAT 100
[2025-04-23 13:26] VITALS: BP 133/74; PULSE 85; RESP 18; TEMP 36.4; O2SAT 100
[2025-04-23 13:38] LABS: CDiff Gene PCR NEGATIVE (Negative)
[2025-04-23 14:12] LABS: E. coli EAEC Detected (Not Detect.); E. coli EPEC Not Detected (Not Detect.); E. coli ETEC Not Detected (Not Detect.); E. coli STEC Not Detected (Not Detect.); Shigella sp./EIEC Not Detected (Not Detect.)
== END 2025-04-23 13:29 | disposition home or self-care (01) ==
PROVIDERS: Registered Nurse Emergency; Emergency Provider Emergency Medicine; PCP Internal Medicine
DX: K92.1 Melena (principal); R19.7 Diarrhea, unspecified; D64.9 Anemia, unspecified; I10 Essential (primary) hypertension; Z87.19 Personal history of other diseases of the digestive system; Z79.899 Other long term (current) drug therapy
CPT/HCPCS: 36415; 74177; 80048; 80076; 83690; 85025; 87493; 87507; 96360; 99284; 99285; J7120; Q9967

== ENCOUNTER → 2025-04-23 09:53 | Outpatient (BNV) | payer MEDICARE, SELFPAY | PROVIDERS: Emergency Provider Emergency Medicine; PCP Internal Medicine; Visit Provider Radiology Diagnostic Radiology | DX: K57.30 Diverticulosis of large intestine without perforation or abscess without bleeding (principal); K80.20 Calculus of gallbladder without cholecystitis without obstruction; K44.9 Diaphragmatic hernia without obstruction or gangrene | CPT/HCPCS: 74177 ==

== ENCOUNTER 2025-05-01 09:19 | Outpatient (REF) | payer MEDICARE, SELFPAY ==
[2025-05-01 10:22] LABS: MANUAL DIFF FLAG NO
[2025-05-01 10:25] LABS: Hematocrit 32.9 % (42.0-52.0); Hemoglobin 11.0 g/dl (14.0-18.0); Imm Gran Abs Auto 0.04 X10*3/uL (0.00-0.03); Imm Gran Pct Auto 0.5 % (0.0-0.4); Lymphocytes Absolute Auto 2.5 X10*3/uL (1.2-4.9); Mean Corpuscular HGB Conc 33.4 g/dl (31.0-36.0); Mean Corpuscular Hemoglobin 29.1 pg (27.0-33.0); Mean Corpuscular Volume 87.0 fL (80.0-98.0); NRBC Abs Auto 0.000 X10*3/uL (0.0-0.012); NRBC Pct Auto 0.0 /100WBC (0.0-0.2); Platelet Count 338 X10*3/uL (160-400); Red Blood Count 3.78 X10*6/uL (4.60-5.80); White Blood Count 8.6 X10*3/uL (4.8-10.8)
[2025-05-01 11:24] LABS: Alanine Aminotransferase 23 U/L (0-40); Albumin Level 4.3 g/dL (3.5-5.0); Alkaline Phosphatase 65 U/L (39-117); Anion Gap 11 (12-20); Aspartate Amino Transferase 29 U/L (5-37); Blood Urea Nitrogen 16 mg/dL (9-16); Calcium 9.0 mg/dL (8.4-10.2); Carbon Dioxide 27 mmol/L (22-29); Chloride 111 mmol/L (96-108); Cholesterol 160 mg/dL (<200); Estimated Glomerular Filt Rate > 60; HDL Cholesterol 63 mg/dL (>40); Magnesium 2.2 mg/dL (1.6-2.6); Potassium 4.5 mmol/L (3.3-5.1); Sodium 144 mmol/L (135-145); Total Protein 7.0 g/dL (6.5-8.0); Triglycerides 107 mg/dL (<150)
[2025-05-01 11:26] LABS: PSA,Total (Free>4and<10) 0.76 ng/mL (0.00-4.00)
[2025-05-01 11:40] LABS: Folate 13.2 ng/mL (> or = 4.0); Vitamin B12 570 pg/mL (200-900)
[2025-05-01 14:04] LABS: Appearance Urine Clear; Glucose Urine UA Negative (Negative); PH 6.0 (5.0-9.0); Specific Gravity - Urine 1.020 (1.005-1.025)
== END 2025-05-01 09:20 ==
LOC: HO.HMGCLDS 09:19
PROVIDERS: PCP Physician Assistant Medical; Visit Provider Physician Assistant Medical
DX: Z00.00 Encounter for general adult medical examination without abnormal findings (principal); Z13.6 Encounter for screening for cardiovascular disorders; Z13.29 Encounter for screening for other suspected endocrine disorder; Z13.1 Encounter for screening for diabetes mellitus; Z12.5 Encounter for screening for malignant neoplasm of prostate; Z13.0 Encounter for screening for diseases of the blood and blood-forming organs and certain disorders involving the immune mechanism
CPT/HCPCS: 36415; 80053; 80061; 80076; 81003; 82306; 82607; 82746; 83036; 83735; 84153; 84443; 85025; 86140

== ENCOUNTER 2025-05-06 10:16 | Outpatient (AMB) | payer MEDICARE, SELFPAY ==
--- NOTE | 2025-05-06 10:20 | MHC.PC.OV ---
Vital Signs 05/06/25 10:22 Height 5 ft 6 in Weight 187 lb 0.6 oz BMI 30.2 BP 165/71 H Blood Pressure Location Rt brachial Pulse 80 Pulse Source Pulse Oximeter Temp 97.5 F Pulse Oximetry (%) 98 Intake Visit Reasons: Physical Intake Note: Was in the ER for rectal bleeding a couple of weeks ago at [facility] and has an appointment with Dr. More August 25. Allergies No Known Allergies Allergy (Verified 05/06/25 11:30) Medication List - Last Reconciled 05/06/25 by Taty Abebe PA-C amlodipine 10 mg PO DAILY blood pressure test kit-large check BP daily losartan 100 mg PO DAILY multivitamin 1 tab PO DAILY omeprazole 20 mg PO DAILY simvastatin 20 mg PO DAILY Tobacco use date assessed: 02/12/25 Dental Screening Dental Screen Date: 05/06/25 Did you have a dental visit in the last 12 months?: Yes Did you have a dental problem in the last 6 months where you did not have access to dental care?: No Was dental information given to patient?: Patient has dentist HPI HPI Comments History of Present Illness Details History of Present Illness The patient is a 79-year-old male presenting for an annual physical examination. He reports a recent emergency department visit on 04/23/2025 for diarrhea and bright red rectal bleeding, which resolved the following day. A CT scan performed during the visit was reportedly negative. He notes a similar bleeding episode occurred about five years ago, which he attributed to arthritis medication. His last colonoscopy was approximately five years ago, and he is scheduled for a follow-up with Dr. More on August 25. Blood work from the hospital visit showed a drop in hemoglobin from 13.6 g/dL to 12.6 g/dL, and subsequent labs on 05/01/2025 were ordered to monitor for anemia. The lab results from 05/01/2025 also showed a normal platelet count, kidney function, liver enzymes, total cholesterol, PSA, B12, folate, and thyroid function, with a hemoglobin A1c of 5.7%, indicating prediabetes. For the past couple of weeks, he has noticed feeling more out of breath than usual with activity and some fatigue, but denies chest pain. He also reports recent onset of his feet puffing up, which improves with elevation, and denies a history of leg swelling. He has a history of arthritis in his knees, with one knee having been replaced. He takes amlodipine 10 mg, losartan 50 mg, a multivitamin, omeprazole, and simvastatin. He has a history of skin lesions that were removed by a on site nurse and has a follow-up appointment in August. He reports no recent falls in the past year and denies any current abdominal pain, unintentional weight loss, or issues with hearing or vision. Social History - Substance Use: The patient is a non-smoker. - Nutrition: Advised to reduce intake of pasta and bread, which convert to sugar. - Weight Management: The patient has gained approximately 8-20 pounds recently. [facility] Medical History (Updated 05/06/25 @ 11:41 by Taty Abebe PA-C) Pedal edema Heart murmur Prediabetes Annual physical exam Fatigue Leg swelling WASHINGTON (dyspnea on exertion) SOB (shortness of breath) Colon cancer screening Preventative health care Atypical nevi COVID-19 vaccine administered Cancer Arthritis History of diverticulitis Anemia Hx of sciatica Hx of basal cell carcinoma GERD (gastroesophageal reflux disease) Diverticulosis Elevated cholesterol HTN (hypertension) Primary osteoarthritis of left knee Osteoarthritis of both knees Surgical History Hx of colonoscopy (~07/15/20) Hx of spinal surgery Hx of arthroscopy of left knee Family History Mother Breast cancer Social History Housing: House Are you a primary healthcare economics consultant to a significant other at home: Yes (mother-has siblings to help) Do you presently have visiting nurse or other home services: No Alcohol intake: current Alcohol intake frequency: does not drink Patient Tobacco Use Status: Never used Tobacco service: Yes Current occupational status: retired Cognitive needs: No Hearing needs: No Vision needs: Yes (rx glasses) Questionnaire PHQ-9 Over the last 2 weeks, how often have you been bothered by any of the following problems? 1. Little interest or pleasure in doing things: not at all 2. Feeling down, depressed, or hopeless: not at all 3. Trouble falling or staying asleep, or sleeping too much: not at all 4. Feeling tired or having little energy: not at all 5. Poor appetite or overeating: not at all 6. Feeling bad about yourself - or that you are a failure or have let yourself or your family down: not at all 7. Trouble concentrating on things, such as reading the newspaper or watching television: not at all 8. Moving or speaking so slowly that other people could have noticed. Or the opposite - being so fidgety or restless that you have been moving around a lot more than usual: not at all 9. Thoughts that you would be better off or of hurting yourself in some way: not at all Total score: 0 Depression Screening Interpretation: Negative Depression Screening Done: Yes 03156 - PHQ-9 Billing: Yes Source: Developed by Drs. Edvin Hodge, Carolyn Joseph, Ned Bedolla and colleagues, with an educational kassy from [employer]. Thrive Questionnaire Date Thrive assessed: 02/12/25 I am a: Patient What is your living situation today?: I have a steady place to live Within the past 12 months, did the food you bought not last and you didn't have the money to get more?: Never true Within the past 12 months, did you worry whether your food would run out before you got money to buy more?: Never true Do you have trouble paying for medicines?: No Do you have trouble getting transportation to medical appointments?: No Do you have trouble paying your heating and electricity bill?: No Do you have trouble taking care of your child, family member or friend?: No Do you have trouble with day-to-day activities such as bathing, preparing meals, shopping, managing finances, etc.?: No Are you currently unemployed and looking for a job?: No Are you interested in more education?: No Please select the resources that you would like help with: None THRIVE Score: 0 AUDIT C Alcohol Use Questionnaire (AUDIT-C) 1. How often do you have a drink containing alcohol?: Never 3. How often do you have six or more drinks on one occasion?: Never Total Score: 0 Score Reviewed/Action Taken: No FAIZAN-7 AMB Questionnaire FAIZAN-7 Date FAIZAN - 7 assessed: 02/12/25 Feeling nervous, anxious, or on edge: 0 = Not at all Not being able to stop or control worryin = Not at all Worrying too much about different things: 0 = Not at all Trouble relaxin = Not at all Being so restless that it is hard to sit still: 0 = Not at all Becoming easily annoyed or irritable: 0 = Not at all Feeling afraid as if something awful might happen: 0 = Not at all Total FAIZAN-7 score (0-4 normal; 5-9 mild; 10-14 moderate; 15-21 severe): 0 Source: Developed by Drs. Edvin Hodge, Carolyn Joseph, Ned Bedolla and colleagues, with an educational kassy from [employer]. FAIZAN-7 Assessment Billing FAIZAN-7 Assessment Tool: FAIZAN-7 Assessment 83866 Review of Systems Narrative Review of Systems - General: Reports fatigue and recent weight gain of about 8 pounds. Denies unintentional weight loss. - Eyes: Denies vision problems. - Ears: Denies hearing problems. - Cardiovascular: Denies chest pain. Reports recent onset of pedal edema. - Respiratory: Reports breathing harder than normal with activity for the last couple of weeks. Denies gasping for breath. - Gastrointestinal: Reports a recent episode of bright red rectal bleeding and diarrhea, which has since resolved. Denies abdominal pain, black stools, or tarry stools. - Musculoskeletal: Reports knee pain due to arthritis. - Constitutional: Denies recent falls. Const All systems reviewed & are unremarkable except as noted in HPI and below Physical exam (Primary Care) Vital Signs: Last Vital Signs Temp 97.5 F 05/06/25 10:22 Pulse 80 05/06/25 10:22 BP 165/71 H 05/06/25 10:22 Pulse Ox 98 05/06/25 10:22 Care Plan Goal for BP management: <140/90 will increase the patient's losartan to 100 mg from 50 mg and patient will return in 1 month he will continue amlodipine 10 mg as well BMI result Body Mass Index 30.2 BMI Assessment/Plan discussion: High BMI High, discussed plan: lifestyle, weight reduction, dietary, physical activity, alcohol moderation and other Tobacco/Smoking Status: Tobacco use Status Tobacco use date assessed 02/12/25 05/06/25 10:21 Patient Tobacco Use Status Never used Tobacco 05/06/25 10:21 PHQ-9: PHQ-9 Score PHQ-9: Total score 0 05/06/25 10:21 Depression Screening Interpretation: Negative Thrive Assessment: Date of Thrive Assessment Date Thrive assessed 02/12/25 05/06/25 10:21 Narrative Physical Exam Appearance: Alert. Oriented X3. No acute distress. Head: Normal external exam. Normocephalic. Atraumatic. Eyes: Pupils are equal, round, and reactive to light. Extraocular movements intact. Conjunctiva and sclera normal. Eyelids normal. Ears: External auditory canal normal. Tympanic membranes normal. No wax noted. Throat: Pharynx normal. Uvula midline. Moist mucous membranes. Neck: Normal inspection. Neck supple. Full range of motion. No adenopathy. Thyroid Normal. No meningeal signs. No neck mass noted. Cardiovascular: Normal heart rate and rhythm. Heart sound normal. Murmur noted. Pulses normal throughout. Respiratory: No respiratory distress. Painless inspiration. Breath sounds normal. No wheezes/rales/rhonchi noted. Chest nontender. No accessory muscle usage noted or decreased air movement noted. Abdomen: Soft and nontender. Bowel sounds normal in all 4 quadrants. No distention noted. No organomegaly noted. No visible injury noted. Back: No costovertebral angle tenderness. Full range of motion noted. Skin: Skin warm and dry. Normal skin color. Normal skin turgor. No rashes/lesions/lacerations noted. Extremities: Mild swelling in feet noted. Extremities exhibit normal range of motion. Extremities nontender. Neuro: Oriented X 3. No motor deficit. No sensory deficit. Reflexes normal. Office Procedures Flu Questionnaire Does the patient have a severe egg allergy?: No Does the patient have severe life threatening allergies?: No Does the patient have a fever or illness today?: No Has the patient ever had Guillain-Mattituck Syndrome?: No Has the patient ever had any past reaction to a flu shot?: No Immunizations Fluarix [id number] (PF) 45 mcg (15 mcg x 3)/0.5 mL IM syringe Performing Provider: Taty Abebe PA-C Performing Location: [facility] Documented (not given) by: Matilde Clement on 05/06/25 10:30 Reason Not Given: Received Previously Results Reviewed Results Reviewed: Results - Labs (05/01/2025): Hemoglobin A1c 5.7%. Platelet count, sodium, potassium, kidney function, magnesium, liver enzymes, albumin, total cholesterol, total PSA, B12, vitamin D, and folate were all normal. - Labs (Trend): Hemoglobin dropped from 13.6 to 12.9 to 12.6 g/dL between 04/22 and 04/23. - Urinalysis: Negative for blood, protein, and glucose. - Diagnostics: A CT scan of the abdomen on 04/23/2025 was reported as negative. Coding Level of Care Code Est Pt Prev Care >65y(84577) Add On Preventative Visit Only Diagnoses Annual physical exam Z00.00 Rectal bleeding K62.5 Anemia D64.9 HTN (hypertension) I10 Prediabetes R73.03 W[place] (dyspnea on exertion) R06.09 Heart murmur R01.1 Pedal edema R60.0 Additional Codes FAIZAN-7 Assessment Billing - FAIZAN-7 Assessment Tool: FAIZAN-7 Assessment 09976 ([id number]) PHQ-9 - 56366 - PHQ-9 Billing: Yes ([id number]) Time Spent (min) 60 Assessment & Plan Assessment & Plan (1) Annual physical exam: Code(s): Z00.00 - Encounter for general adult medical examination without abnormal findings Category: Medical Plan: The patient completed his annual physical exam today. He will follow up in one month to review test results and check his response to medication changes. His next annual exam will be scheduled at that time. (2) Rectal bleeding: Code(s): K62.5 - Hemorrhage of anus and rectum Category: Medical Plan: The patient presented with a recent history of resolved hematochezia and a corresponding drop in hemoglobin. To monitor for ongoing bleeding and resolution of anemia, labs including a CBC, ferritin, and iron studies will be ordered. The patient is scheduled to see a senior c web developer, Dr. More, on August 25 and has a colonoscopy planned, though it may be moved up if there are signs of ongoing bleeding. (3) Anemia: Comment: taking iron Code(s): D64.9 - Anemia, unspecified Category: Medical (4) HTN (hypertension): Code(s): I10 - Essential (primary) hypertension Category: Medical Plan: The patient's blood pressure was elevated at 165/71 mmHg, which may be related to recent weight gain. The losartan dose will be increased to 100 mg daily. A prescription for a home blood pressure cuff will be provided for monitoring. A follow-up appointment is scheduled in one month to recheck blood pressure. (5) Prediabetes: Code(s): R73.03 - Prediabetes Category: Medical Plan: The patient's hemoglobin A1c was 5.7%, indicating prediabetes. He was counseled to reduce his intake of carbohydrates such as pasta and bread. (6) W[place] (dyspnea on exertion): Code(s): R06.09 - Other forms of dyspnea Category: Medical Plan: The patient reports recent onset dyspnea on exertion, fatigue, and pedal edema, with a heart murmur noted on exam. To evaluate for a cardiac etiology and fluid retention, an echocardiogram, chest X-ray, stress test (chemical and regular), and a pro-BNP level will be ordered. The pedal edema could also be a side effect of amlodipine. If blood pressure remains high and swelling persists at the one-month follow-up, a diuretic may be considered. (7) Heart murmur: Code(s): R01.1 - Cardiac murmur, unspecified Category: Medical (8) Pedal edema: Code(s): R60.0 - Localized edema Category: Medical Plan Plan Patient was informed and verbally consented to the use of an ambient scribe for clinic note documentation during this visit. 1. Rectal Bleeding And Anemia The patient presented with a recent history of resolved hematochezia and a corresponding drop in hemoglobin. To monitor for ongoing bleeding and resolution of anemia, labs including a CBC, ferritin, and iron studies will be ordered. The patient is scheduled to see a senior c web developer, Dr. More, on August 25 and has a colonoscopy planned, though it may be moved up if there are signs of ongoing bleeding. 2. Hypertension The patient's blood pressure was elevated at 165/71 mmHg, which may be related to recent weight gain. The losartan dose will be increased to 100 mg daily. A prescription for a home blood pressure cuff will be provided for monitoring. A follow-up appointment is scheduled in one month to recheck blood pressure. 3. Dyspnea On Exertion, Heart Murmur, And Pedal Edema The patient reports recent onset dyspnea on exertion, fatigue, and pedal edema, with a heart murmur noted on exam. To evaluate for a cardiac etiology and fluid retention, an echocardiogram, chest X-ray, stress test (chemical and regular), and a pro-BNP level will be ordered. The pedal edema could also be a side effect of amlodipine. If blood pressure remains high and swelling persists at the one-month follow-up, a diuretic may be considered. 4. Prediabetes The patient's hemoglobin A1c was 5.7%, indicating prediabetes. He was counseled to reduce his intake of carbohydrates such as pasta and bread. 5. Annual Health Maintenance The patient completed his annual physical exam today. He will follow up in one month to review test results and check his response to medication changes. His next annual exam will be scheduled at that time. Discussion Notes I discussed the patient's recent episode of rectal bleeding and the importance of monitoring his blood counts to ensure the anemia is resolving, explaining that we will repeat his CBC. I informed him about his scheduled gastroenterology appointment and noted that the colonoscopy might need to be performed sooner if his symptoms recur or anemia worsens. I explained that his blood pressure is high and that I will be increasing his losartan to 100 mg. I am prescribing a home blood pressure cuff so he can monitor his readings, and we will reassess in one month. I also mentioned his weight gain could be contributing to his elevated blood pressure. Regarding his new symptoms of shortness of breath, fatigue, and foot swelling, along with the heart murmur I heard, I explained that we need to investigate a possible cardiac cause or fluid retention. I have ordered an echocardiogram, a chest X-ray, a stress test, and blood work (proBNP) to evaluate his heart and lung function. I also mentioned that his foot swelling could be a side effect of amlodipine. I advised him that his recent lab work shows prediabetes, and counseled him to reduce his intake of carbohydrates like bread and pasta. I reviewed that the rest of his labs were excellent. We arranged for a one-month follow-up appointment to review all results and re-evaluate his blood pressure. I explained that due to technical issues with our internet and printer, I would have to mail him the prescription for the blood pressure cuff. Orders: Orders Influenza [id number] Immunization Today Z23 - Encounter for immunization XR chest 2V Today I10 - Essential (primary) hypertension, M79.89 - Other specified soft tissue disorders, R06.02 - Shortness of breath, R06.09 - Other forms of dyspnea, R53.83 - Other fatigue Complete Blood Count no Diff Today Z00.00 - Encounter for general adult medical examination without abnormal findings CA echo transthoracic complete Today I10 - Essential (primary) hypertension, M79.89 - Other specified soft tissue disorders, R06.02 - Shortness of breath, R06.09 - Other forms of dyspnea, R53.83 - Other fatigue NM cardiolite stress test Today I10 - Essential (primary) hypertension, I51.89 - Other ill-defined heart diseases, M79.89 - Other specified soft tissue disorders, R06.02 - Shortness of breath, R06.09 - Other forms of dyspnea, R53.83 - Other fatigue IRON PROFILE Today D64.9 - Anemia, unspecified Ferritin Today D64.9 - Anemia, unspecified NT Pro B Type Natriuretic Pept Today M79.89 - Other specified soft tissue disorders, R06.02 - Shortness of breath, R06.09 - Other forms of dyspnea, R53.83 - Other fatigue CA stress test Today I10 - Essential (primary) hypertension, M79.89 - Other specified soft tissue disorders, R06.02 - Shortness of breath, R06.09 - Other forms of dyspnea, R53.83 - Other fatigue Medications: New blood pressure test kit-large check BP daily 1 ea 0RF I10 - Essential (primary) hypertension blood pressure test kit-large check BP daily 1 ea 0RF I10 - Essential (primary) hypertension Changed From losartan 50 mg PO DAILY To losartan 100 mg PO DAILY 90 tabs 1RF Patient Instructions: Patient Instructions - Start taking losartan 100 mg once daily for your blood pressure. - A prescription for a blood pressure machine will be mailed to you. Please pick it up from a medical supply store like [employer] or [employer]. - If you get the machine, check your blood pressure about two hours after taking your medication and write down the readings to bring to your next appointment. - Go to the lab for blood work (CBC, iron, ferritin, proBNP). You do not need to fast for this. - You will also need to get a chest X-ray. - The hospital will call you to schedule an ultrasound of your heart (echocardiogram) and a stress test. - Try to reduce your intake of foods like pasta and bread to help manage your prediabetes. - Keep your scheduled appointment with the senior c web developer (Dr. More) on August 25. - Return for a follow-up visit in one month.
[2025-05-06 10:22] VITALS: BP 165/71; PULSE 80; TEMP 36.4; O2SAT 98; BMI 30.2
--- OUTSIDE RECORDS SUMMARY | 2025-05-06 12:48 | XMS_ITS | Patient Health Record ---
Author Organization [facility] Address [address] [place] [address] Care Team Providers Care Lumber Grader Name Role Phone Hannah (RETIRED) Henry CASTRO Primary Care Provider Unavailable Alf More Jr Unavailable Reason For Referral No Information Medications Medication SIG (Take, Route, Frequency, Duration) Notes Start Date End Date Status MiraLax (colon prep) 8.3 ounce ((238) grams mixed with Gatorade or Crystal Light orally begin at 5:00 p.m. the day before the procedure; Duration: 1 day 06/29/2020 Active Omeprazole Active One Daily Adults 50+ Active Simvastatin 20 MG Tablet 1 tablet in the evening Orally Once a day Active amLODIPine Besylate Active Immunizations Vaccine Route Administration Date Status Comme nts Influenza Unknown 03/04/2020 Administered Social History Social History Additional Details Category Social Info Options Details Miscellaneous: Marital status: single Occupation: retired Problems Problem Type SNOMED Code ICD Code Onset Dates Problem Status W/U Status Risk Notes Problem Colon cancer screening (911226882) Colon cancer screening (Z12.11) Active confirmed Problem Rectal bleeding (82291550) Rectal bleeding (K62.5) Active confirmed Problem care home current use of non-steroidal anti-inflammator y drug (842688443165579 ) 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 use of non-steroidal anti-inflammatorie s (NSAID) (Z79.1) Active confirmed Problem Diverticular disease of colon (631003697) Diverticulosis of large intestine without hemorrhage (K57.30) Active confirmed Plan Of Treatment Future Test Test Name Order Date COLONOSCOPY 06/04/2015 COLONOSCOPY 06/29/2020 Next Appt Details Provider Name:Alf wolfe Jr, 08/25/2025 10:40:00 AM, [address], [address], [place], [address], Insurance Providers Payer Name Payer Address Payer Phone Subscriber Number Group Number Insured Name Patient Relationship to Insured Coverage Start Date Coverage End Date MEDICARE OF [place] [address] [place] [address] [id number] DARRIUS RPIEST Self - patient is the insured Medical (General) History Medical History History ICD Code colon polyps, colonoscopy 08/28/15, five-y ear followup 09/09 diverticulosis arthritis fractured wrist hypertension elevated cholesterol Surgical History Surgery Date(Month/Year) spinal stenosis surgery
== END 2025-05-06 11:02 | disposition home or self-care (01) ==
LOC: HO.HMCSH 10:16
PROVIDERS: PCP Physician Assistant Medical; Visit Provider Physician Assistant Medical
DX: R73.03 Prediabetes (principal); K62.5 Hemorrhage of anus and rectum; D64.9 Anemia, unspecified; I10 Essential (primary) hypertension; R06.09 Other forms of dyspnea; R01.1 Cardiac murmur, unspecified; R60.0 Localized edema

== ENCOUNTER → 2025-05-06 10:16 | Outpatient (BNVA) | payer MEDICARE, SELFPAY | PROVIDERS: PCP Physician Assistant Medical; Visit Provider Physician Assistant Medical | DX: Z00.00 Encounter for general adult medical examination without abnormal findings (principal); K62.5 Hemorrhage of anus and rectum; D64.9 Anemia, unspecified; I10 Essential (primary) hypertension; R73.03 Prediabetes; R06.09 Other forms of dyspnea; R01.1 Cardiac murmur, unspecified; R60.0 Localized edema; R53.83 Other fatigue; M79.89 Other specified soft tissue disorders; R06.02 Shortness of breath; Z13.31 Encounter for screening for depression | CPT/HCPCS: 96127; 99212 ==

== ENCOUNTER 2025-05-07 13:01 | Outpatient (REF) | payer MEDICARE, SELFPAY ==
--- NOTE | ~2025-05-07 | XR_ITS ---
EXAMINATION: XR CHEST CLINICAL INFORMATION: I10 - Essential (primary) hypertension COMPARISON: None available. TECHNIQUE: 2 views of the chest were obtained. FINDINGS: Cardiac silhouette is within normal limits. The lungs are clear and well aerated. There is no pneumothorax. There is no pleural effusion. There is mild disc space narrowing and endplate osteophytes in the midthoracic spine. XR/XR chest 2V IMPRESSION: No acute disease. Electronically signed by: Dennis Carranza MD 05/07/2025 01:26 PM [facility]
[2025-05-07 16:23] LABS: Hematocrit 33.0 % (42.0-52.0); Hemoglobin 10.8 g/dl (14.0-18.0); Mean Corpuscular HGB Conc 32.7 g/dl (31.0-36.0); Mean Corpuscular Hemoglobin 29.0 pg (27.0-33.0); Mean Corpuscular Volume 88.7 fL (80.0-98.0); NRBC Abs Auto 0.000 X10*3/uL (0.0-0.012); NRBC Pct Auto 0.0 /100WBC (0.0-0.2); Platelet Count 346 X10*3/uL (160-400); Red Blood Count 3.72 X10*6/uL (4.60-5.80); White Blood Count 10.7 X10*3/uL (4.8-10.8)
[2025-05-07 16:46] LABS: NT Pro B Type Natriuretic Pept 50.3 pg/mL (<300)
[2025-05-07 16:53] LABS: Iron 112 mcg/dL (45-160); Percent Iron Saturation 37 % (15-50); Total Iron Binding Capacity 301 mcg/dL (228-428); Unsaturated Iron Binding 189 ug/dL
[2025-05-07 16:59] LABS: Ferritin 31 ng/mL (20-250)
--- OUTSIDE RECORDS SUMMARY | 2025-05-07 17:07 | XMS_ITS | Patient Health Record ---
Author Organization 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 use of non-steroidal anti-inflammatorie s (NSAID) (Z79.1) Active confirmed Problem Diverticular disease of colon (610959651) Diverticulosis of large intestine without hemorrhage (K57.30) Active confirmed Plan Of Treatment Future Test Test Name Order Date COLONOSCOPY 06/04/2015 COLONOSCOPY 06/29/2020 Next Appt Details Provider Name:Alf wolfe Jr, 08/25/2025 10:40:00 AM, [address], [address], [place], [address], Insurance Providers Payer Name Payer Address Payer Phone Subscriber Number Group Number Insured Name Patient Relationship to Insured Coverage Start Date Coverage End Date MEDICARE OF [place] [address] [place] [address] [id number] DARRIUS PRIEST Self - patient is the insured Medical (General) History Medical History History ICD Code colon polyps, colonoscopy 08/28/15, five-y ear followup 09/09 diverticulosis arthritis fractured wrist hypertension elevated cholesterol Surgical History Surgery Date(Month/Year) spinal stenosis surgery
== END 2025-05-07 13:02 | disposition home or self-care (01) ==
LOC: HO.HMGCX 13:01
PROVIDERS: PCP Physician Assistant Medical; Visit Provider Physician Assistant Medical
DX: Z00.00 Encounter for general adult medical examination without abnormal findings (principal); D64.9 Anemia, unspecified; R06.02 Shortness of breath; R06.09 Other forms of dyspnea; M79.89 Other specified soft tissue disorders; R53.83 Other fatigue; I10 Essential (primary) hypertension
CPT/HCPCS: 36415; 71046; 82728; 83540; 83880; 85027

== ENCOUNTER → 2025-05-07 13:12 | Outpatient (BNV) | payer MEDICARE, SELFPAY | PROVIDERS: PCP Physician Assistant Medical; Visit Provider Radiology Diagnostic Radiology | DX: I10 Essential (primary) hypertension (principal) | CPT/HCPCS: 71046 ==